=== PATIENT | female | born 1945 | race Caucasian/White ===

== ENCOUNTER 2024-09-26 08:14 | Outpatient (AMB) | payer MEDICARE, SELFPAY ==
--- NOTE | 2024-09-26 08:17 | A.OFFPC_ITS ---
Vital Signs 09/26/24 08:19 Height 5 ft 4 in Weight 193 lb 3.2 oz BMI 33.2 BP 142/74 H Blood Pressure Location Lt brachial Position Sitting Respiration 18 Pulse 78 Pulse Source Pulse Oximeter Temp 97.3 F Temp Source Temporal Artery Scan Pulse Oximetry (%) 98 Oxygen Delivery Method Room Air Intake Visit Reasons: establish care Intake Note: Patient is a new patient here to establish care. Transferring care from Dr. Gus Giles in [place], [place]. Medical records have not been requested and have not been received. Patient completed Medical Release of Information form today. Director Home Health Required: No Accompanied by: Self / Same As Patient Allergies naproxen [NAPROXEN] Allergy (Intermediate, Unverified 09/26/24 08:45) SWELLING, RASH, rash, swelling rosuvastatin [From CRESTOR] Allergy (Intermediate, Unverified 09/26/24 08:45) MUSCLE ACHE simvastatin [SIMVASTATIN] Allergy (Intermediate, Unverified 09/26/24 08:45) ITCHING, joint pain, cough Darvon Allergy (Unknown, Unverified 09/26/24 08:45) rash, swelling oxybutynin Allergy (Unknown, Verified 09/26/24 08:45) itching From DARVON Allergy (Intermediate, Uncoded 09/26/24 08:45) HIVES,SWELLING Medication List - Last Reconciled 09/26/24 by Carmina Sepulveda PA-C alprazolam mg PO [id number] 1.7 mg-400 mcg- 2.4 mcg (Neuriva Plus Brain Performance) caps PO dexlansoprazole (Dexilant) 60 mg PO DAILY sertraline 100 mg PO BID Tobacco use date assessed: 09/26/24 Fall risk assessment: No Falls in past year Last assessed Fall Risk: 09/26/24 Dental Screening Dental Screen Date: 09/26/24 Did you have a dental visit in the last 12 months?: Yes Did you have a dental problem in the last 6 months where you did not have access to dental care?: No Was dental information given to patient?: Patient has dentist HPI establish care HPI Details 79 year old female coming to the office for the first time. Prev being seen by [facility] in [facility]. The patient is a 79-year-old female presenting for medication management of anxiety and panic symptoms, evaluation of a persistent skin rash, and assessment of hypertension. She experiences recent escalation of anxiety due to stressful life events, with panic attacks in the previous month. Past medication issues include an adverse response to sertraline, related to increasing suicidal thoughts. Skin problems have been identified as a recurrent rash under the belly and near private areas, with temporary relief achieved using Lamisil, but concerns of yeast infection persist. She denies a history of diabetes, although diet control is noted with a previous top A1c of 6.0, and her hypertension history is reportedly high at clinic visits. Tobacco use history concluded more than 40 years ago, ceasing at age 32. [facility] Surgical History History of knee replacement H/O hand surgery Family History Father Prostate cancer Mother Breast cancer Brother FH: mental illness Social History Housing: House Housing Other:: Downstairs unit in son's home Alcohol intake: current Alcohol intake frequency: holidays/special occasions only Alcohol type: wine Patient Tobacco Use Status: Former Tobacco user Years Smoked: quit over 40 years e-Cigarette/Vaping Use: Never Used service: No Current occupational status: retired Cognitive needs: No Hearing needs: Yes (Hearing aids) Vision needs: Yes (Glasses) Female Reproductive History Menstrual control method: none Questionnaire PHQ-9 Over the last 2 weeks, how often have you been bothered by any of the following problems? 1. Little interest or pleasure in doing things: several days 2. Feeling down, depressed, or hopeless: more than half the days 3. Trouble falling or staying asleep, or sleeping too much: nearly every day 4. Feeling tired or having little energy: nearly every day 5. Poor appetite or overeating: several days 6. Feeling bad about yourself - or that you are a failure or have let yourself or your family down: nearly every day 7. Trouble concentrating on things, such as reading the newspaper or watching television: not at all 8. Moving or speaking so slowly that other people could have noticed. Or the opposite - being so fidgety or restless that you have been moving around a lot more than usual: several days 9. Thoughts that you would be better off or of hurting yourself in some way: not at all Total score: 14 Depression Screening Interpretation: Positive Depression Screening Follow-up: Existing condition, In treatment and Change in Medication Depression Screening Done: Yes 31183 - PHQ-9 Billing: Yes Source: Developed by Drs. Marc Dai, Felicita Ren, Andrew Braun and colleagues, with an educational yoli from [employer]. Thrive Questionnaire Date Thrive assessed: 09/26/24 I am a: Patient What is your living situation today?: I have a steady place to live Within the past 12 months, did the food you bought not last and you didn't have the money to get more?: Never true Within the past 12 months, did you worry whether your food would run out before you got money to buy more?: Never true Do you have trouble paying for medicines?: No Do you have trouble getting transportation to medical appointments?: No Do you have trouble paying your heating and electricity bill?: No Do you have trouble taking care of your child, family member or friend?: No Do you have trouble with day-to-day activities such as bathing, preparing meals, shopping, managing finances, etc.?: No Are you currently unemployed and looking for a job?: No Are you interested in more education?: No Please select the resources that you would like help with: None Currently or been in a relationship where the following occur: No concerns repo rted THRIVE Score: 0 AUDIT C Alcohol Use Questionnaire (AUDIT-C) 1. How often do you have a drink containing alcohol?: Monthly or less 2. How many drinks containing alcohol do you have on a typical day when you are drinking?: 1 or 2 3. How often do you have six or more drinks on one occasion?: Never Total Score: 1 FAUSTO-7 AMB Questionnaire FAUSTO-7 Date FAUTSO - 7 assessed: 09/26/24 Feeling nervous, anxious, or on edge: 3 = Nearly every day Not being able to stop or control worryin = Nearly every day Worrying too much about different things: 1 = Several days Trouble relaxin = Several days Being so restless that it is hard to sit still: 0 = Not at all Becoming easily annoyed or irritable: 1 = Several days Feeling afraid as if something awful might happen: 3 = Nearly every day Total FAUSTO-7 score (0-4 normal; 5-9 mild; 10-14 moderate; 15-21 severe): 12 Source: Developed by Drs. Marc Dai, Fleicita Ren, Andrew Braun and colleagues, with an educational yoli from [employer]. FAUSTO-7 Assessment Billing FAUSTO-7 Assessment Tool: FAUSTO-7 Assessment 10556 Review of Systems Const Denies body aches, Denies chills, Denies fever(s), Denies headache(s) and Denies poor appetite Eyes Reports no additional complaints ENT Denies dysphagia, Denies dizziness, Denies headache(s) and Denies odynophagia Card Denies chest pain, Denies syncope, Denies edema, Denies irregular heart rhythm, Denies lightheadedness and Denies dyspnea Resp Denies cough and Denies dyspnea GI Denies abdominal pain, Denies constipation, Denies dysphagia, Denies diarrhea, Denies nausea, Denies odynophagia and Denies vomiting Reports no additional complaints Musc Reports no additional complaints and Denies abnormal gait Skin/Breast Reports system reviewed and no additional complaints, except as documented Neuro Denies abnormal gait, Denies dizziness, Denies syncope and Denies headache(s) Psych Reports no additional complaints Physical exam (Primary Care) Vital Signs: Last Vital Signs Temp 97.3 F 09/26/24 08:19 Pulse 78 09/26/24 08:19 Resp 18 09/26/24 08:19 BP 142/74 H 09/26/24 08:19 Pulse Ox 98 09/26/24 08:19 Oxygen Delivery Method Room Air 09/26/24 08:19 BMI result Body Mass Index 33.2 Tobacco/Smoking Status: Tobacco use Status Tobacco use date assessed 09/26/24 09/26/24 08:29 Patient Tobacco Use Status Former Tobacco user 09/26/24 08:32 e-Cigarette/Vaping Use Never Used 09/26/24 08:32 PHQ-9: PHQ-9 Score PHQ-9: Total score 14 09/26/24 08:53 Depression Screening Interpretation: Positive Depression Screening Follow-up: Existing condition, In treatment and Change in Medication Thrive Assessment: Date of Thrive Assessment Date Thrive assessed 09/26/24 09/26/24 08:39 Currently or been in a relationship where the following occur: No concerns reported Const General: cooperative, healthy appearing, comfortable and no acute distress Orientation/consciousness: patient oriented x3 HENMT Head: Yes normocephalic Ears: hearing grossly normal bilaterally General nose exam: Normal external nose present Eyes General: appearance normal, both eyes and all related structures Conjunctivae: conjunctivae normal Neck Neck: Yes full ROM and Yes no lymphadenopathy Resp Effort & Inspection: normal respiratory effort Auscultation: clear to auscultation bilaterally, no crackles, no rales, no rhonchi and no wheezes Cardio Rate: regular rate Rhythm: regular rhythm Skin Other: Patchy, beefy, red rash under abdominal fold Neuro General: patient oriented x3 Gait exam (Neuro): Normal gait present Extrem General: Yes normal to inspection, Yes full ROM and No edema Psych Affect: normal affect Attitude: cooperative Insight: Good insight present (Psych) Judgement: Good judgement present (Psych) Coding Level of Care Code New Pt Level 4 (40675) Diagnoses Anxiety F41.9 Depression F32.A GERD (gastroesophageal reflux disease) K21.9 Hypercholesterolemia E78.00 Impaired glucose tolerance R73.02 Dry mouth R68.2 Atypical nevi D22.9 Elevated blood pressure reading without diagnosis of hypertension R03.0 Candidal dermatitis B37.2 Additional Codes FAUSTO-7 Assessment Billing - FAUSTO-7 Assessment Tool: FAUSTO-7 Assessment 32591 ([id number]) PHQ-9 - 44429 - PHQ-9 Billing: Yes ([id number]) Assessment & Plan Assessment & Plan (1) Anxiety: Code(s): F41.9 - Anxiety disorder, unspecified Category: Medical Plan: Sertraline decreased to 50 mg at patient request referral placed to counseling at this time. (2) Depression: Code(s): F32.A - Depression, unspecified Category: Medical Plan: Patient is currently on sertraline and is interested in decreasing her dose from 100 mg to 50 mg. Referral placed for counseling as well. (3) GERD (gastroesophageal reflux disease): Code(s): K21.9 - Gastro-esophageal reflux disease without esophagitis Category: Medical Plan: Avoid trigger foods such as citrus, tomato products, soda, caffeine, spicy foods and other foods that may be irritating to your stomach. Avoid laying flat 3-4 hours after eating and elevate the head of the bed 30 degrees to prevent acid from moving into the esophagus. Continue on dexlansoprazole (4) Hypercholesterolemia: Code(s): E78.00 - Pure hypercholesterolemia, unspecified Category: Medical Plan: Avoid foods that are high in cholesterol such as red meat, fried foods, eggs and baked goods. Triglyceride goal of less than 150 and LDL goal of less than 100. Not currently on medical management. Ordered for updated blood work (5) Impaired glucose tolerance: Comment: highest A1c 6.0% Code(s): R73.02 - Impaired glucose tolerance (oral) Category: Medical Plan: Decrease the amount of carbohydrates such as pasta, bread, rice, and potatoes and limit the amount of sweets. Although fruits are generally healthy they should be eaten in moderation as they are still high in sugar. Ordered for A1c and additional blood work. (6) Dry mouth: Code(s): R68.2 - Dry mouth, unspecified Category: Medical Plan: Patient complaining of chronic dry mouth in. Ordered for Sjogren labs for further evaluation and recommend using biotene as needed for symptom management. (7) Atypical nevi: Code(s): D22.9 - Melanocytic nevi, unspecified Category: Medical Plan: Referral placed to Dermatology for multiple atypical nevi (8) Elevated blood pressure reading without diagnosis of hypertension: Code(s): R03.0 - Elevated blood-pressure reading, without diagnosis of hypertension Category: Medical Plan: Mildly elevated today patient states she has under lot of stress today. Advised patient to take blood pressures at home 3-4 times per week keep a log and follow up at next visit for further evaluation. Avoid salt intake and encourage healthy diet and regular exercise. Consider medical management if remains elevated (9) Candidal dermatitis: Code(s): B37.2 - Candidiasis of skin and nail Category: Medical Plan: Patient has beefy red rash under the abdominal fold consistent with candidal infection. Plan to give clotrimazole cream and nystatin powder for treatment at this time. Advised to follow up if rash worsens or does not improve. Plan This note was constructed using voice recognition software. While every effort has been made to ensure accuracy and automatic pinsetter adjuster, still areas may have been included sometimes these areas may affect the content or meeting of the given symptoms. Total time spent caring for the patient today was 30 minutes. This includes time spent before the visit reviewing the chart, time spent during the visit, and time spent after the visit and documentation. Patient was informed and verbally consented to the use of an ambient scribe for clinic note documentation during this visit. Orders: Orders Lipid Panel Today E78.00 - Pure hypercholesterolemia, unspecified TSH reflex Free T4 Today Z00.00 - Encounter for general adult medical examination without abnormal findings Vitamin D 25-OH Total Today Z00.00 - Encounter for general adult medical examination without abnormal findings Sjogren's Antibodies Today R68.2 - Dry mouth, unspecified Hemoglobin A1c Today R73.02 - Impaired glucose tolerance (oral) Free T4 (Free Thyroxine) Today Z00.00 - Encounter for general adult medical examination without abnormal findings Complete Blood Count Auto Diff Today Z00.00 - Encounter for general adult medical examination without abnormal findings Comprehensive Met. Panel Today Z00.00 - Encounter for general adult medical examination without abnormal findings Vitamin B12 and Folate Today Z00.00 - Encounter for general adult medical examination without abnormal findings Referrals Counseling Referral F32.A - Depression, unspecified, F41.9 - Anxiety disorder, unspecified Dermatology Referral D22.9 - Melanocytic nevi, unspecified Medications: New alprazolam 0.5 mg PO .prn 20 tabs 0RF sertraline 50 mg PO DAILY 90 tabs 1RF clotrimazole 1% 1 appl topical BID 30 grams 0RF nystatin 1 appl topical DAILY 30 grams 0RF dexlansoprazole (Dexilant) 60 mg PO DAILY 90 caps 1RF
[2024-09-26 08:19] VITALS: BP 142/74; PULSE 78; RESP 18; TEMP 36.3; O2SAT 98; BMI 33.2
--- OUTSIDE RECORDS SUMMARY | 2024-09-26 08:33 | XMS_ITS | Encounter Summary ---
Author Organization [facility] Address [address] [place] [address] Care Team Providers Care Sales Representative Electric Service Name Role Phone Kevon Estrella MD Primary Care Provider Unavailable Pcp, No Primary Care Provider UnavailGus Malhotra MD Primary Care Provider [phone] Encounter Details Date Type Department Care Team (Late st Contact Info) Description 11/15/[address] [facility] [address] [facility] [address] [place] [address] Giovanna Olmstead, BUILDING RENTAL MANAGER [address] [place] [address] Social History Tobacco Use Types Packs/Day Years Used Date Smoking Tobacco: Former Cigarettes Smokeless Tobacco: Never Comments:quit 40+ years ago Alcohol Use Standard Drinks/Week Comments Not Currently 0 (1 standard drink = 0.6 oz pur e alcohol) less than monthly Sex and Gender Information Value Date Recorded Sex Assigned at Not on file Gender Identity Not on file Sexual Orientation Not on file COVID-19 Exposure Response Date Recorded In the last month, have you been in contact with someone who was confirmed or suspected to have Coronavirus / COVID-19? No / Unsure 11/11/2019 8:18 AM EDT documented as of this encounter Plan of Treatment Upcoming Encounters Date Type Department Care Team (Late st Contact Info) Description 10/11/2024 2:00 PM EDT Consult [facility] [address] [place] [phone] John Mccurdy MD [address] [facility] [address] [place] [address] documented as of this encounter Visit Diagnoses Not on filedocumented in this encounter Care Teams Sales Representative Electric Service Relationship Specialty Start Date End Date Kevon Estrella MD PCP - General Internal Medicine 11/28/18 02/06/23 Pcp, No PCP - General General Medicine 07/14/23 06/19/24 Gus Giles MD [address] [place] [address] PCP - General Family Medicine 06/20/24 documented as of this encounter
--- OUTSIDE RECORDS SUMMARY | 2024-09-26 08:33 | XMS_ITS | Encounter Summary ---
Author Organization [facility] Address [address] [place] [address] Care Team Providers Care Cadd Manager Name Role Phone Kevon Estrella MD Primary Care Provider Unavailable Pcp, No Primary Care Provider UnavailGus Malhotra MD Primary Care Provider [phone] Encounter Details Date Type Department Care Team (Late st Contact Info) Description 11/15/2019 Scanned Document [facility] [address] [place] [address] Monica Spencer MD [address] [place] [address] Social History Tobacco Use Types Packs/Day Years [...] Description 10/11/2024 2:00 PM EDT Consult [facility] [address] [facility] [place] [phone] John Mccurdy MD [address] [facility] [address] [place], [place] [id number] documented as of this encounter Procedures Procedure Name Priority Date/Time Associated Diagnosis Comments PATHOLOGY REPORT 11/15/2019 12:0 0 AM EDT documented in this encounter Results * (REPORT) PATHOLOGY REPORT (11/15/2019 12:00 AM EDT) Monica Spencer MD PATHOLOGY/CYTO LOGY ORDERABLES documented in this encounter Visit Diagnoses Not on filedocumented in this encounter Care Teams Cadd Manager Relationship Specialty Start Date End Date Kevon Estrella MD PCP - General Internal Medicine 11/28/18 02/06/23 Pcp, No PCP - General General Medicine 07/14/23 06/19/24 Gus Giles MD [address] [place] [address] PCP - General Family Medicine 06/20/24 documented as of this encounter
--- OUTSIDE RECORDS SUMMARY | 2024-09-26 08:33 | XMS_ITS | Clinical Summary ---
Author Organization [facility] Address [address] [place] [address] Care Team Providers Care Global Coordinator Name Role Phone Gus Giles MD Primary Care Provider [phone] Allergies Active Allergy Reactions Criticality Noted Date Comments Naproxen Rash Low 11/28/2018 Nsaids Rash Low 05/02/2019 Propoxyphene Swelling Medium 11/28/2018 Simvastatin Swelling Medium 11/28/2018 Medications Medication Sig Dispensed Refills Start Date End Date Status Cholecalciferol (Vitamin D) 50 MCG (1999) CAPSIndications:Keeley min D deficiency Take 1 capsule by mouth daily. 100 capsule 3 02/17/2023 Active ALPRAZolam (XANAX) 0.5 MG tabletIndications:Ge neralized anxiety disorder with panic attacks Take 1 tablet (0.5 mg total) by mouth daily as needed. 30 tablet 0 05/22/2024 Active Dexilant 60 MG capsuleIndications:G astroesophageal reflux disease without esophagitis Take 1 capsule (60 mg total) by mouth daily. 90 capsule 1 05/22/2024 Active Active Problems Problem Noted Date Diagnosed Date COVID-19 07/06/2023 Class 1 obesity 04/13/2023 04/13/2023 Vitamin D deficiency 02/17/2023 Asthma 07/01/2021 Prediabetes 09/22/2020 Perianal dermatitis 09/22/2020 Depression 03/12/2020 Moderate episode of recurrent major depressive d isorder 02/03/2020 Gastroesophageal reflux disease 02/03/2020 Generalized anxiety disorder with panic attacks 02/03/2020 Hx of colonic polyp 05/02/2019 Dysphagia 05/02/2019 Arthritis of right knee 12/13/2018 Immunizations Name Administration Dates Next Due Covid-19 (Moderna 12+) 100mcg/0.5mL dosage 09/24,08/27/2020 Covid-19 (Moderna 12+) Bivalent 50mcg/0.5mL 03/04 Covid-19 (Moderna Booster 18 +) 0.25mL dosage 05/18/2021 Influenza Quad (Afluria/Fluz one) 0.5mL >=6mon Vial (SD-IIV4) 04/09/2021 Influenza Quad (Fluad) 0.5 m L >65Yrs (AIIV4) 04/13/2023 Influenza Quad (High Dose Fl uzone) 0.7mL >65Yrs (HD-IIV4) 03/26/2022 Influenza Trivalent (Fluzone High Dose) 0.7 mL (65yrs &>) 03/22/2024 Pneumococcal Conjugate PCV13 01/09/2019 RSV preF (Abrysvo) Diluent R econstituted 0.5mL 60+Yrs 03/22/2024 Tdap 02/29/2024,02/06/2023,01/04/2018 Family History Medical History Relation Name Comments Cancer Brother liver Cancer Father prostate Breast cancer Mother Osteoporosis Sister 1 Cancer Sister 2 tongue Ovarian cancer Neg Hx Relation Name Status Comments Brother Alive Father Mother Sister 1 Alive Sister 2 Social History Tobacco Use Types Packs/Day Years Used Date Smoking Tobacco: Former Cigarettes 1 18 Q uit: 1975 Smokeless Tobacco: Never Tobacco Cessation:Counseling Given: Not Answered Alcohol Use Standard Drinks/Week Comments Yes 0 (1 standard drink = 0.6 oz pur e alcohol) rarely Sex and Gender Information Value Date Recorded Sex Assigned at Not on file Gender Identity Not on file Sexual Orientation Not on file Job Start Date Occupation Industry Not on file Not on file Not on file Last Filed Vital Signs Vital Sign Reading Time Taken Comments Blood Pressure 138/80 04/11/2024 2:40 PM EDT Pulse 102 04/11/2024 2:40 PM EDT Temperature 36.6 ??C (97.8 ??F) 04/11/2024 2:40 PM ED T Respiratory Rate 16 04/11/2024 2:40 PM EDT Oxygen Saturation 97% 04/11/2024 2:40 PM EDT Inhaled Oxygen Concentration - - Weight 88.2 kg (194 lb 6.4 oz) 04/11/2024 2:40 P M EDT Height 162.6 cm (5' 4 ) 04/11/2024 2:40 PM EDT Body Mass Index 33.37 04/11/2024 2:40 PM EDT Plan of Treatment Health Maintenance Due Date Last Done Comments Shingrix-Zoster Vaccine (1 of 2) 1996 Pneumococcal Vaccine (2 of 2 - PPSV23 or PCV20) 03/06/2019 01/09/2019 BMI Counseling 04/13/2024 04/13/2023, 03/04, 09/09/2020, Additional history exists Depression Screening 04/13/2024 04/13/2023, 03/30/2022, 09/09/2020, Additional history exists Fall Risk Assessment 04/13/2024 04/13/2023, 03/30/2022, 09/09/2020, Additional history exists Preventative Health Evaluation 04/13/2024 04/13/2023, 03/30/2022, 03/30/2022, Additional history exists Osteoporosis Screening (DEXA Scan) 08/07/2025 08/07/2023 Breast Cancer Screening (Mammogram) 02/07/2026 02/08/2024, 08/07/2023, 02/01/2022 DTap / Tdap / Td (5 - Td or Tdap) 02/28/2034 02/29/2024, 02/06/2023, 01/14/2018, Additional history exists Hepatitis C Screening Completed 03/30/2022 Influenza Vaccine Completed 03/22/2024, , 03/26/2022, Additional history exists RSV Adult > 60+ Yrs or Completed 03/22/2024 COVID-19 Vaccine Completed 04/25/2024, , 05/18/2021, Additional history exists Hepatitis B Vaccines Aged Out No long er eligible based on patient's age to complete this topic RSV Ped < 20 months Aged Out No longe r eligible based on patient's age to complete this topic Care Teams Global Coordinator Relationship Specialty Start Date End Date Gus Giles MD PCP - General Family Medicine 02/03/20
--- OUTSIDE RECORDS SUMMARY | 2024-09-26 08:33 | XMS_ITS | Encounter Summary ---
Author Organization [facility] Address [address] [place] [address] Care Team Providers Care Supervisor Hospitality House Name Role Phone Pcp, No Primary Care Provider Gus Garcia MD Primary Care Provider [phone] Encounter Details Date Type Department Care Team (Late st Contact Info) Description 02/16/2024 Telephone [facility] [address] [place] [address] Khurram Rodriguez Social History Tobacco Use Types Packs/Day Years [...] on file documented as of this encounter Miscellaneous Notes * Telephone Encounter - Khurram Rodriguez - 02/16/2024 7:00 PM EDT LVM colon recall DH OCS documented in this encounter Plan of Treatment Upcoming Encounters Date Type Department Care Team (Late st Contact Info) Description 10/11/2024 2:00 PM EDT Consult [facility] [address] [facility] [facility] [address] [place] [id number] John Mccurdy MD [address] [facility] [address] [place] [address] documented as of this encounter Visit Diagnoses Not on filedocumented in this encounter Care Teams Supervisor [facility]ality [facility] Relationship Specialty Start Date End Date Pcp, No PCP - General General Medicine 07/14/23 06/19/24 Gus Giles MD [address] [place] [address] PCP - General Family Medicine 06/20/24 documented as of this encounter
--- OUTSIDE RECORDS SUMMARY | 2024-09-26 08:33 | XMS_ITS | Continuity of Care Document ---
[facility] Address [address] [place] [address]- Care Team Providers Care Internal Medicine Physician Assistant Name Role Phone Chris MCCORMICK, Sheila Redd Primary Care Physici Encounter [facility] [id number] Date(s): 07/05/24 - 09/07/24 [facility] [address] [place] [address]- Attending Physician: Sheila Perez NP Encounter Type: Pre Office Visit Allergies, Adverse Reactions, Alerts Substance Criticality Severity Reaction Reaction Severity Status naproxen hives Active Zocor sore leg/ swelling A ctive Darvon rash, stop breathing Active Lactose diarrhea Active Immunizations Given and Recorded Vaccine Date Status Refusal Reason SARS-CoV-2(COVID-19)mRNA-LNP vac([id number]) 04/25/24 Recorded SARS-CoV-2(COVID-19)mRNA-LNP vac(ash026) 04/16/23 Recorded RSV vaccine, preF A-preF B, recombinant 03/22/24 R ecorded influenza virus vaccine, inactivated 03/22/24 Farhat rded influenza virus vaccine, inactivated 03/02/20 Farhat rded influenza virus vaccine, inactivated 04/02/19 Farhat rded influenza virus vaccine, inactivated 04/19/18 Farhat rded influenza virus vaccine, inactivated 03/17/16 Farhat rded influenza virus vaccine, inactivated 03/24/15 Farhat rded tetanus/diphtheria/pertussis, acel(Tdap) 02/29/24 Recorded tetanus/diphtheria/pertussis, acel(Tdap) 02/06/23 Given SARS-CoV-2 (COVID-19) mRNA-1273 vaccine 01/21/22 R ecorded SARS-CoV-2 (COVID-19) mRNA-1273 vaccine 09/24/20 R ecorded SARS-CoV-2 (COVID-19) mRNA-1273 vaccine 08/27/20 R ecorded pneumococcal 13-valent vaccine 03/24/15 Recorded Problem List Condition Confirmation Course Effective Dates Status Health St atus Informant Actinic keratosis Confirmed Active Cataracts, bilateral Confirmed Active Delayed gastric emptying Confirmed Active Delayed gastric emptying Confirmed Active Depression Confirmed Active Ganglion cyst Confirmed Active GERD (gastroesophageal reflux disease) Confirmed Active Chronic GERD Confirmed Active FAUSTO (generalized anxiety disorder) Confirmed Active Bleeding ulcer Confirmed Active Hyperlipidemia, unspecified Confirmed Active Lactose intolerance Confirmed Active Iron deficiency anemia Confirmed Active IBS (irritable bowel syndrome) Confirmed Active Obese class I Confirmed Active Prediabetes Confirmed Active Major depressive disorder, severe Confirmed Active Hepatic steatosis Confirmed Active Tubular adenoma of colon Confirmed Active Urge incontinence of urine Confirmed Active Social History Social History Type Response Smoking Status Former smoker, quit more than 30 days ago; Other: smoked 15 years, quit smoking at 32 years old; entered on: 07/05/24 Sex Sex Representation Female (finding) Patient Care team information Care Team Personnel Name: Chris MCCORMICK, Sheila Redd Position: [facility] PCO Associate Professional Member Role: PCP Address: [address] [place] [address] Telecom: Care Team Related Persons Name: ANNE MARIE CASTANO Name: NELSON MENON Insurance Providers Guarantor name: FIDENCIO CASTANO Health Plan Information #: 2 Payer: [employer] MED[employer] ADV HMO Member Number: [id number] Policy Number: NA Group Number: [id number] Health Plan Information #: 1 Payer: [facility] Member Number: [id number] Policy Number: NA Group Number: NA Health Plan Information #: 3 Payer: NA Member Number: NA Policy Number: NA Group Number: NA
--- OUTSIDE RECORDS SUMMARY | 2024-09-26 08:34 | XMS_ITS ---
Author Name [facility] Organization Unknown Results Test Name/Text Value Interpretation Date Range Source Hgb A1c MFr Bld HPLC 6.2% Above high normal [id number] 6 - 5.7 [facility] 25(OH)D3+25(OH)D2 SerPl IA-mCnc 34ng/mL Normal [id number] 30 - 100 [facility] VIT B12 SER MCNC 250pg/mL Normal [id number] 180 - 914 [facility] TSH SerPl DL<=0.005 mIU/L-aCnc 2.87uIU/mL Normal [id number] 0.45 - 5.33 [facility] CALCIUM SERPL MCNC 9.7mg/dL Normal [id number] 8.4 - 10 .2 [facility] ANION GAP SERPL SCNC 10mmol/L Normal [id number] 5 - 14 [facility] Glomerular filtration rate/1.73 sq M. predicted 51 Below low normal [id number] 60 - [facility] HCO3 SER SCNC 27mmol/L Normal [id number] 24 - 32 [facility] AST SERPL CCNC 16U/L Normal [id number] 5 - 40 [facility] BUN SERPL MCNC 12mg/dL Normal [id number] 7 - 17 [facility] CHLORIDE SERPL SCNC 104mmol/L Normal [id number] 98 - 10 7 [facility] ALBUMIN SERPL BCG MCNC 4.3g/dL Normal [id number] 3.5 - 5 [facility] ALP SERPL-CCNC 91U/L Normal [id number] 34 - 104 [facility] ALT SERPL CCNC 12U/L Normal [id number] 7 - 52 [facility] CREAT SERPL MCNC 1.1mg/dL Above high normal [id number] 0. 5 - 1 [facility] SODIUM SERPL SCNC 141mmol/L Normal [id number] 135 - 145 [facility] PROT SERPL MCNC 7.2g/dL Normal [id number] 6.4 - 8.5 C [facility] BILIRUB SERPL MCNC 0.4mg/dL Normal [id number] 0.3 - 1 [facility] GLUCOSE P FAST SERPL MCNC 149mg/dL Above high normal [id number] 70 - 99 [facility] POTASSIUM SERPL SCNC 4.5mmol/L Normal [id number] 3.5 - 5.1 [facility] LDLc SerPl Calc-mCnc 125mg/dL Normal [id number] 50 - 1 30 [facility] TRIGL SERPL-MCNC 107mg/dL Normal [id number] - 150 [facility] CHOLEST SERPL-MCNC 226mg/dL Above high normal [id number] 0 - 200 [facility] HDLC SERPL-MCNC 80mg/dL Normal [id number] 33 - 92 [facility] DIFFERENTIAL TYPE AUTOMATED Normal [id number] [facility] NO. BLD AUTO 269K/uL Normal [id number] 150 - 450 [facility] RBC NO. BLD AUTO 4.83M/uL Normal [id number] 4.2 - 5.4 [facility] LYMPHOCYTES NO. BLD AUTO 2K/uL Normal [id number] 1 - 3.2 [facility] EOSINOPHIL NO. BLD AUTO 0.3K/uL Normal [id number] 0 - 0.5 [facility] MCH RBC QN AUTO 25.8pg Normal [id number] 25 - 33 [facility] MCHC RBC AUTO MCNC 32.7g/dL Normal [id number] 32 - 36 [facility] MONOCYTES NFR BLD AUTO 6.8% Normal [id number] 2 - 12 [facility] LYMPHOCYTES NFR BLD AUTO 27% Normal [id number] 20 - 48 [facility] EOSINOPHIL NFR BLD AUTO 4% Normal [id number] 0 - 6 [facility] HGB BLD MCNC 12.4g/dL Below low normal [id number] 12.5 - 16 [facility] NEUTROPHILS NO. BLD AUTO 4.6K/uL Normal [id number] 1.8 - 7.8 [facility] WBC NO. BLD AUTO 7.5K/uL Normal [id number] 4 - 10.5 [facility] BASOPHILS NFR BLD AUTO 0.9% Normal [id number] 0 - 2 [facility] MONOCYTES NO. BLD AUTO 0.5K/uL Normal [id number] 0 - 0.8 [facility] MCV RBC AUTO 78.8fL Normal [id number] 78 - 100 [facility] NEUTROPHILS NFR BLD AUTO 61.3% Normal [id number] 44 - 74 [facility] BASOPHILS IN BLOOD BY AUTOMATED COUNT 0.1K/uL Normal [id number] 0 - 0.2 [facility] PMV BLD AUTO 9.3fL Normal [id number] 7.4 - 11.4 [facility] RDW RBC AUTO RTO 17.7% Above high normal [id number] 12 .1 - 16.2 [facility] HCT VFR BLD AUTO 38% Normal [id number] 37 - 47 [facility] History of Medication Use Medication Directions Dispensed Refills Start Date End Date Stat sulfamethoxazole-trim ethoprim (BACTRIM DS,SEPTRA DS) 800-160 MG per tablet Take 1 tablet by mouth 2 (two) times a day. 11/03/2021 active sertraline (ZOLOFT) 100 MG tablet Take 2 tablets (200 mg total) by mouth daily. 04/13/2023 active dexlansoprazole (DEXILANT) 60 MG capsule Take 60 mg by mouth nightly. Take night before surgery active Cholecalciferol (Vitamin D) 50 MCG (1999) CAPS Take 1 capsule by mouth daily. 02/17/2023 active ALPRAZolam (XANAX) 0.5 MG tablet TAKE 1 TABLET BY MOUTH EVERY DAY NEEDED 01/29/2024 active oxyCODONE HCl 5 MG Oral Tablet oxyCODONE HCl 5 MG Oral Tablet QTY: 12 tablet Days: 4 Refills: 0 Written: 05/03/24 Patient Instructions: take one tab po three times a day as needed 09/09/2023 completed Acetaminophen-Caffein e 500-65 MG Tab Take 1 tablet by mouth as needed. Do not take day of surgery. active proMETHAZINE-dextrome thorphan (proMETHAZINE-DM) 6.25-15 MG/5ML syrup Take 5 mL by mouth 4 times daily (every 6 hours) as needed for cough. 07/14/2023 active Problems Problem Status Onset Date Problem Type Date of Resolution Source Moderate episode of recurrent major depressive disorder active 2020-02-03 ProblemAct [facility] Encounter for screening for lipoid disorders active EncounterDiagnosisAct [facility] Localized, primary osteoarthritis of the hand (disorder) active 2022-05-11 ProblemAct [facility] Radial styloid tenosynovitis (disorder) active 2022-05-11 ProblemAct [facility] Perianal dermatitis active 2020-09-22 [facility] Panic disorder (episodic paroxysmal anxiety) active EncounterDiagnosisAct [facility] Moderate persistent asthma, uncomplicated active EncounterDiagnosisAct [facility] Vitamin D deficiency active 2023-02-17 Problem[facility] Depression active 2020-03-12 ProblemAct [facility] Class 1 obesity active 2023-04-[address] [facility] Prediabetes active 2020-09-22 ProblemAct [facility] Arthritis of right knee active 2018-12-13 ProblemAct [facility] Acquired trigger finger of right ring finger (disorder) active 2024-04-03 ProblemAct [facility] Cyst of bursa (disorder) active 2023-08-28 ProblemAct [facility] Localized, primary osteoarthritis of the hand (disorder) active 2023-02-27 ProblemAct [facility] Carpal tunnel syndrome of right wrist (disorder) active 2023-11-13 ProblemAct [facility] Gastroesophageal reflux disease active 2020-02-03 [facility] COVID-19 active 2023-07-06 ProblemAct [facility] Asthma active 2021-07-01 ProblemAct [facility] Dysphagia active 2019-05-02 ProblemAct [facility] Generalized anxiety disorder with panic attacks active 2020-02-03 ProblemAct [facility] Hx of colonic polyp active 2019-05-02 ProblemAct [facility] COVID-19 active EncounterDiagnosisAct [facility] Gastroesophageal reflux disease active 2019-05-02 ProblemAct [facility] Impingement syndrome of right shoulder region (disorder) active 2023-08-28 ProblemAct [facility] Acquired trigger finger of right index finger (disorder) active 2023-08-28 ProblemAct [facility] Immunizations Vaccine Date Source Lot Number Status Tdap 01/04/2018 [facility] completed Tdap 02/06/2023 [facility] [id number] completed Covid-19 (Moderna Booster 18+) 0.25mL dosage 05/18/2021 [facility] completed Influenza Quad (Afluria/Fluz one) 0.5mL >=6mon Vial (SD-IIV4) 04/09/2021 [facility] completed Covid-19 (Moderna 12+) 100mcg/0.5mL dosage 09/24/2020 [facility] completed Influenza Quad (Fluad) 0.5 mL >65Yrs (AIIV4) 04/13/2023 [facility] [id number] completed Covid-19 (Moderna 12+) Bivalent 50mcg/0.5mL 03/26/2022 [facility] [id number] completed Influenza Quad (High Dose Fl uzone) 0.7mL >65Yrs (HD-IIV4) 03/26/2022 [facility] [id number] completed Covid-19 (Moderna 12+) 100mcg/0.5mL dosage 08/27/2020 [facility] completed Encounters Encounter Type Encounter Reason Primary Diagnosis Location Date Ambulatory Carpal tunnel syndrome, right upper limb Carpal tunnel syndrome, right upper limb [facility] 05/29/2024 Ambulatory Carpal tunnel syndrome, right upper limb Carpal tunnel syndrome, right upper limb [facility] 05/08/2024 Ambulatory CREATE Carpal tunnel syndrome, right upper limb [facility] 05/03/2024 Ambulatory Carpal tunnel syndrome, right upper limb Carpal tunnel syndrome, right upper limb [facility] 05/03/2024 Ambulatory Trigger finger, right index finger Trigger finger, right index finger [facility] 04/03/2024 Ambulatory Major depressive disorder, recurrent, moderate Major depressive disorder, recurrent, moderate [facility] 03/26/2024 Ambulatory Encounter for screening for lipoid disorders Encounter for screening for lipoid disorders [facility] 03/26/2024 Ambulatory Trigger finger, right index finger Trigger finger, right index finger [facility] 11/15/2023 Ambulatory Trigger finger, right index finger Trigger finger, right index finger [facility] 10/11/2023 Ambulatory Trigger finger, right little finger Trigger finger, right little finger [facility] 09/21/2023 Ambulatory Trigger finger, right little finger Trigger finger, right little finger [facility] 09/14/2023 Ambulatory Trigger finger, right little finger Trigger finger, right little finger [facility] 09/08/2023 Ambulatory MODIFY [facility] 09/08/2023 Ambulatory Primary osteoarthritis, right hand Primary osteoarthritis, right hand [facility] 08/28/2023 Ambulatory COVID-19 COVID-19 [facility] 07/14/2023 Ambulatory Primary osteoarthritis, right hand Primary osteoarthritis, right hand [facility] 03/13/2023 Ambulatory Other synovitis and tenosynovitis, right hand Other synovitis and tenosynovitis, right hand [facility] 02/27/2023 Ambulatory Vitamin D defici ency, unspecified [facility] 01/25/2023 Ambulatory Unil primary osteoarth of first carpometacarp joint, r hand [facility] 07/13/2022 Ambulatory Unil primary osteoarth of first carpometacarp joint, r hand [facility] 07/08/2022 Ambulatory [facility] Ambulatory Pain in thoracic spine [place] [email or web address] [facility] 11/03/2021 Care Team Organization Name Specialty Phone Email Start Date End Da te [facility] Gus Giles Primary Care 06/20/2024 [facility], [facility] 04/23/2024 [facility] 08/30/2023 [facility] 07/14/2023 07/14/2023 [facility] 07/14/2023 09/18/2024 [facility] 01/27/2023 [facility] Gus Tisha Primary Care 01/0101/25/2023 [facility] Marcos Latif Primary Care 05/11/2022 08/27/2024 [facility] LARISSA ESTRELLA Primary Care 11/03/2021 11/03/2021 [facility] Betito Estrella Primary Care 11/03/2021 09/18/2024
--- OUTSIDE RECORDS SUMMARY | 2024-09-26 08:34 | XMS_ITS | Clinical Summary ---
Author Organization [facility] ity Address [address] [place] [address] Care Team Providers Care Corrections Specialist Name Role Phone Gus Giles MD Primary Care Provider [phone] Allergies Active Allergy Reactions Criticality Noted Date Comments Naproxen Rash Low 11/28/2018 Nsaids (Non-Steroidal Anti-I nflammatory Drug) Rash Low 05/02/2019 Propoxyphene Swelling Medium 11/28/2018 Simvastatin Swelling Medium 11/28/2018 Medications ALPRAZolam (XANAX) 0.5 mg tablet TAKE 1 TABLET BY MOUTH EVERY DAY NEEDED 04/23/2022 Active dexlansoprazole (Dexilant) [address] capsule Take 1 capsule (60 mg total) by mouth daily. 06/20/2022 Active sertraline (ZOLOFT) 100 mg tablet TAKE 2 TABLETS BY MOUTH EVERY DAY 04/19/2022 Active Active Problems Problem Noted Date Diagnosed Date Asthma 07/01/2021 Prediabetes 09/22/2020 Perianal dermatitis 09/22/2020 Depression 03/12/2020 Episode of recurrent major depressive disorder 0 02/03/2020 Gastroesophageal reflux disease 02/03/2020 Generalized anxiety disorder with panic attacks 02/03/2020 Dysphagia 05/02/2019 Arthritis of right knee 12/13/2018 Immunizations Name Administration Dates Next Due Influenza Quadravalent, 0.5m l (Fluzone High-dose) 65yo and older 03/26/2022 Influenza Quadrivalent, with preservative (Fluzone; Afluria) 6mo and older 04/09/2021 Moderna (age 6mo & older) Bi valent, COVID-19, 0.5 mL or 0.25 mL dosage 03/26/2022 Moderna SARS-CoV-2 COVID-19, mRNA, LNP-S, preservative free 05/18/2021,09/24/2020,08/27/2020 Surgical History Surgery Date Site/Laterality Comments BREAST BIOPSY Left benign ESOPHAGEAL DILATION EYE SURGERY TOTAL KNEE ARTHROPLASTY Bilateral OTHER SURGICAL HISTORY vagotomy TOTAL KNEE ARTHROPLASTY PROCEDURE:REPLACEMENT TOTAL KNEE BILATERAL OTHER SURGICAL HISTORY PROCEDURE:VAGOTOMY EYE SURGERY PROCEDURE:EYE SURGERY BREAST BIOPSY Left PROCEDURE:BREAST BIOPSY;COMMENT:Benign ESOPHAGEAL DILATION PROCEDURE:ESOPHAGEAL DILATION Medical History Medical History Date Comments Concussion Depression Dysphagia GERD (gastroesophageal reflux disease) Panic attacks Depression DX:Depression GERD (gastroesophageal reflux disease) DX:GERD (gastroesophageal reflux disease) Anxiety DX:Anxiety Concussion DX:Concussion Dysphagia DX:Dysphagia Family History Medical History Relation Name Comments Cancer Brother 1 liver Cancer Brother 2 liver Cancer Father prostate Breast cancer Mother Cancer Sister 1 tongue Osteoporosis Sister 2 Cancer Sister 3 tongue Ovarian cancer Neg Hx Relation Name Status Comments Brother 1 Brother 2 Alive Father Mother Sister 1 Sister 2 Alive Sister 3 Social History Tobacco Use Types Packs/Day Years Used Date Smoking Tobacco: Former Cigarettes 1 18 0 07/03/1957 - 07/03/1975 Smokeless Tobacco: Never Tobacco Cessation:Counseling Given: Not Answered Alcohol Use Standard Drinks/Week Comments Yes 0 (1 standard drink = 0.6 oz pur e alcohol) rarely Comments Unknown Sex and Gender Information Value Date Recorded Sex Assigned at Not on file Legal Sex Female 11:50 PM EST Gender Identity Not on file Sexual Orientation Not on file Obstetrics History Last Filed Vital Signs Vital Sign Reading [...] Health Maintenance Due Date Last Done Comments Zoster Vaccines (1 of 2) 1996 Pneumococcal Vaccine: 50+ Years (2 of 2 - PPSV23) 03/06/2019 01/09/2019 Social Influencers of Health Screening 06/10/2022 Depression Screening 03/30/2023 03/30/2022 Falls Risk Assessment 03/30/2023 03/30/2022 COVID-19 Vaccine ( season) 2024 03/26/2022, 05/18/2021, 09/24/2020, Additional history exists Breast Cancer Screening 02/07/2026 02/08/20, 08/07/2023, 02/01/2022 Cholesterol Screening (Lipid Panel) 03/26/2029 03/26/2024, 03/26/2024, 01/25/2023, Additional history exists Osteoporosis Screening (Bone Density Screening) 08/07/2033 08/07/2023 DTaP,Tdap,and Td Vaccines (4 - Td or Tdap) 02/28/2034 02/29/2024, 02/06/2023, 01/04/2018 Hepatitis C Screening Completed 03/30/2022 Influenza Vaccine Completed 03/22/2024, , 03/26/2022, Additional history exists RSV Immunization Patients 60+ Years Old Completed 03/22/2024 HIB Vaccines Aged Out No longer eligi ble based on patient's age to complete this topic HPV Vaccines Aged Out No longer eligi ble based on patient's age to complete this topic Hepatitis A Vaccines Aged Out No long er eligible based on patient's age to complete this topic Hepatitis B Vaccines Aged Out No long er eligible based on patient's age to complete this topic IPV Vaccines Aged Out No longer eligi ble based on patient's age to complete this topic MMR Vaccines Aged Out No longer eligi ble based on patient's age to complete this topic Meningococcal ACWY Vaccine Aged Out N o longer eligible based on patient's age to complete this topic Meningococcal B Vacine Aged Out No lo nger eligible based on patient's age to complete this topic RSV Immunization Patients Under 20 months Aged Out No longer eligible based on patient's age to complete this topic Varicella Vaccines Aged Out No longer eligible based on patient's age to complete this topic Procedures Procedure Name Priority Date/Time Associated Diagnosis Comments MAMMOGRAM DIAGNOSTIC RIGHT DIGITAL WITH CAD Routine 02/08/2024 10:11 AM EDT Other specified disorders of breast Mammographic microcalcification found on diagnostic imaging of breast BONE DENSITY STUDY Routine 08/07/2023 10 :16 AM EST Encounter for screening for osteoporosis Asymptomatic menopausal state HM HEPATITIS C SCREENING Routine 03/30/2022 HM DEPRESSION SCREENING Routine 03/30/2022 HM FALLS RISK ASSESSMENT Routine 03/30/2022 LIPID PANEL Routine 03/30/2022 from Last 3 Months or Most Recently Relevant to Health Maintenance Results * MAMMOGRAM DIAGNOSTIC RIGHT DIGITAL WITH CAD (02/08/2024 10:11 AM EDT) Anatomical Region Laterality Modality Mammography 08/07/2023 12:1 9 PM EST Narrative 02/08/2024 10:37 AM EDT This is a summary report. The complete report is available in the patient's medical record. If you cannot access the medical record, please contact the sending organization for a detailed fax or copy. EXAM PERFORMED: ??MAMMOGRAM DIAGNOSTIC RIGHT DIGITAL WITH CAD EXAM HISTORY: Follow-up right breast calcifications and asymmetries. COMPARISON: 2023, 2021 TECHNIQUE: Bilateral full field digital mammography with synthesized (2D) the and Tomosynthesis (3-D) was performed using standard CC and MLO projections. Mammogram was interpreted in correlation with CAD and Tomosynthesis. BREAST DENSITY: There are scattered fibroglandular densities (approximately 25- 50% glandular, B). FINDINGS: Right breast middle/posterior depth just lateral to nipple line dystrophic 0.8 cm group of calcifications is stable from 2021. Right breast anterior/middle depth upper outer quadrant focal asymmetries are stable from 2021. Additional scattered benign-appearing and vascular calcifications are typically benign. Otherwise, no additional suspicious masses, grouped microcalcifications, or architectural distortion are identified. Typically benign asymmetries. No axillary lymphadenopathy. IMPRESSION: 1. No mammographic evidence of malignancy. 2. Scattered fibroglandular densities. Mammography BI-RADS Category 2: Benign 3342F RECOMMENDATION: Continue routine mammography screening in one year. Findings and recommendations reported to the patient at the time of examination. Report reviewed and signed by : Dr. Duglas Augustin MD on 02/08/2024 10:37 AM. Workstation Name - [id number] Procedure Note Duglas Augustin MD - 04/16/2024 This is a summary report. The complete report is available in thepatient's medical record. If you cannot access the medical record, pleasecontact the sending organization for a detailed fax or copy. EXAM PERFORMED: MAMMOGRAM DIAGNOSTIC RIGHT DIGITAL WITH CAD EXAM HISTORY: Follow-up right breast calcifications and asymmetries. COMPARISON: 2023, 2021 TECHNIQUE: Bilateral full field digital mammography with synthesized (2D)the and Tomosynthesis (3-D) was performed using standard CC and MLOprojections. Mammogram was interpreted in correlation with CAD andTomosynthesis. BREAST DENSITY: There are scattered fibroglandular densities(approximately 25- 50% glandular, B). FINDINGS: Right breast middle/posterior depth just lateral to nipple line dystrophic0.8 cm group of calcifications is stable from 2021. Right breast anterior/middle depth upper outer quadrant focal asymmetriesare stable from 2021. Additional scattered benign-appearing and vascular calcifications aretypically benign. Otherwise, no additional suspicious masses, grouped microcalcifications,or architectural distortion are identified. Typically benign asymmetries.No axillary lymphadenopathy. IMPRESSION: 1. No mammographic evidence of malignancy. 2. Scattered fibroglandular densities. Mammography BI-RADS Category 2: Benign 3342F RECOMMENDATION: Continue routine mammography screening in one year. Findings and recommendations reported to the patient at the time ofexamination. Report reviewed and signed by : Dr. Duglas Augustin MD on 02/08/2024 10:37AM. Workstation Name - [id number] us Gus Giles MD IMG BI PROCEDURES Final Resul t * BONE DENSITY STUDY (08/07/2023 10:16 AM EST) Anatomical Region Laterality Modality Bone Densitometr y 04/13/2023 9:51 AM EDT Narrative 08/07/2023 11:04 AM EST Bone density study Indication and risk factors: Postmenopausal female. ??Screening for osteoporosis. ??No priors. Study acquired on a [place] densitometer. Imaging of the lumbar spine and hip was completed. FINDINGS: LUMBAR SPINE Averaged L1 through L4: Bone density: 1.16 g/cm2 Z score: 1.1 T score: -0.2 LEFT HIP Left femoral neck: Bone density: 0.76 g/cm2 Z score: -0.3 T score: -2.0 CONCLUSION: 1. ??Lumbar spine: ??Normal bone density. 2. ??Left hip: ??Osteopenia. FRAX: 10 year probability of fracture based on femoral neck BMD, when considering patient's personal risk factors: Major osteoporotic fracture: 14% Hip fracture: 4% SESSION: Not applicable World Health Organization Definitions of Osteoporosis: T score at or below -1.0: Normal BMD T score between -1.0 and -2.5: Osteopenia T score at or below -2.5: Osteoporosis DEXA guidelines: Diagnosis : Treatment : Follow-up DEXA Normal BMD : Prevention : 2-3 years Osteopenia : Prevention/therapy :1-2 years Osteoporosis : Therapy : Yearly Report reviewed and signed by : Dr. Yumiko Díaz on 08/07/2023 11:04 AM. Workstation Name - LOUIE- Procedure Note Yumiko Díaz MD - 02/19/2024 Bone density study Indication and risk factors: Postmenopausal female. Screening forosteoporosis. No priors. Study acquired on a [place] densitometer. Imaging of thelumbar spine and hip was completed. FINDINGS: LUMBAR SPINE Averaged L1 through L4: Bone density: 1.16 g/cm2 Z score: 1.1 T score: -0.2 LEFT HIP Left femoral neck: Bone density: 0.76 g/cm2 Z score: -0.3 T score: -2.0 CONCLUSION: 1. Lumbar spine: Normal bone density. 2. Left hip: Osteopenia. FRAX: 10 year probability of fracture based on femoral neck BMD, whenconsidering patient's personal risk factors: Major osteoporotic fracture: 14% Hip fracture: 4% SESSION: Not applicable World Health Organization Definitions of Osteoporosis: T score at or below -1.0: Normal BMD T score between -1.0 and -2.5: Osteopenia T score at or below -2.5: Osteoporosis DEXA guidelines: Diagnosis : Treatment : Follow-up DEXA Normal BMD : Prevention : 2-3 years Osteopenia : Prevention/therapy :1-2 years Osteoporosis : Therapy : Yearly Report reviewed and signed by : Dr. Yumiko Díaz on 08/07/2023 11:04 AM.Workstation Name - LOUIE- Result [facility] Gus Giles MD IMG DXA PROCEDURES Final Resu lt * Falls Risk Assessment (03/30/2022) [facility] Falls Risk Assessment abstracted Result [facility] Historical Provider HEALTH MAINTENANCE Final Result * Depression Screening (03/30/2022) [facility] Depression Screening abstracted Result [facility] Provider HEALTH MAINTENANCE Final Result * Hepatitis C Screening (03/30/2022) [facility] Hepatitis C Screening abstracted Result [facility] Provider HEALTH MAINTENANCE Final Result * (ABNORMAL) Lipid panel (03/30/2022) [facility] Triglycerides 101 <=150 mg/dL Cholesterol 211(A) 0 - 200 mg/dL HDL 67 33 - 92 mg/dL LDL Cholesterol 124 50 - 130 mg/dL Blood Venous blood specimen / Unknown Result [facility] Provider LAB BLOOD ORDERABLES Tamia l Result from Last 3 Months or Most Recently Relevant to Health Maintenance Care Teams Corrections Specialist Relationship Specialty Start Date End Date Gus Giles MD [address] [address] PCP - General 02/03/20
--- OUTSIDE RECORDS SUMMARY | 2024-09-26 08:34 | XMS_ITS | Encounter Summary ---
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 04/14/24 Pre-Op Dx PRE-OP DIAGNOSIS: Carpal tunnel syndrome, right: Trigger finger Proposed Proc. PROPOSED PROCEDURE: Right endoscopic carpal tunnel release, right middle and ring trigger release PROCEDURE DATE: 05/17/2024 Surg/Endo SURGEON/ENDOSCOPIST: Dr. Latif Rodríguez [facility]: [facility] SURGEON/ENDOSCOPIST Anesthetic Preference: MAC Here for [...] 0 ? Cholecalciferol (Vitamin D) 50 MCG (2000 UT) CAPS Take 1 capsule by mouth [...] Encounter Procedures ? ECG 12 lead Gus Gilse MD [facility], [address] [place] [id number] documented in this encounter Plan of Treatment Not on file documented as of this encounter Visit Diagnoses Not on filedocumented in this encounter Care Teams Chairman Relationship Specialty Start Date End Date Gus Giles MD [address] [phone] PCP - General 02/03/20 documented as of this encounter
--- OUTSIDE RECORDS SUMMARY | 2024-09-26 08:34 | XMS_ITS | Clinical Summary ---
Author Organization [facility] Address [address] [place] [address] Care Team Providers Care Sink Maker Name Role Phone Gus Giles MD Primary Care Provider [phone] Allergies Active Allergy Reactions Criticality Noted Date Comments Naproxen Rash/Dermatitis Low 11/28/2018 Propoxyphene Swelling Medium 11/28/2018 Nsaids Rash/Dermatitis Low 05/02/2019 Simvastatin Swelling Medium 11/28/2018 Medications Medication Sig Dispensed Refills Start Date End Date Status ALPRAZolam (XANAX) 0.5 MG tablet Take 0.5 mg by mouth daily as needed for anxiety. Take day of surgery if needed Active ammonium lactate (LAC-HYDRIN) 12 % lotion Apply topically 2 (two) times a day as needed for dry skin. Do not apply day of surgery Active dexlansoprazole (DEXILANT) 60 MG capsule Take 60 mg by mouth nightly. Take night before surgery Active sertraline (ZOLOFT) 100 MG tablet Take 100 mg by mouth nightly. Take night before surgery Active Acetaminophen-Caffei ne 500-65 MG Tab Take 1 tablet by mouth as needed. Do not take day of surgery. Active HYDROmorphone (DILAUDID) 2 MG tabletIndications:Ar thritis of right knee Take 1-2 tablets (2-4 mg total) by mouth every 4 (four) hours as needed for moderate pain or severe pain. Max Daily Amount: 24 mg 60 tablet 12/14/2018 Active Cholecalciferol (VITAMIN D3) 25 MCG (1000 UT) Cap Take by mouth. Active CINNAMON PO Take by mouth. Active ghqzsn-nmzcnqbft-utz nesium sulfates (Suprep Bowel Prep Kit) 17.5-3.13-1.6 GM/177ML Solution solutionIndications: Hx of colonic polyp,Dysphagia, unspecified type,Gastroesophagea l reflux disease, esophagitis presence not specified Take two 177 mL bottles as directed 2 Bottle 11/04/2019 Active sulfamethoxazole-tri methoprim (BACTRIM DS,SEPTRA DS) 800-160 MG per tabletIndications:Ac asael right-sided thoracic back pain Take 1 tablet by mouth 2 (two) times a day. 20 tablet 11/03/2021 Active proMETHAZINE-dextrom ethorphan (proMETHAZINE-DM) 6.25-15 MG/5ML syrupIndications:COV ID-19 Take 5 mL by mouth 4 times daily (every 6 hours) as needed for cough. 120 mL 07/14/2023 Active Active Problems Problem Noted Date Diagnosed Date Hx of colonic polyp 05/02/2019 Dysphagia 05/02/2019 Gastroesophageal reflux disease 05/02/2019 Arthritis of right knee 12/13/2018 Family History Medical History Relation Name Comments Liver cancer Brother 1 Deep vein thrombosis Brother 2 Other Brother 2 Pulmonary embolism Brother 2 Transient ischemic attack Brother 2 Cirrhosis Father Prostate cancer Father Breast cancer Mother Stomach cancer Paternal Aunt Cancer Sister 1 Mouth Atrial fibrillation Sister 2 Relation Name Status Comments Brother 1 Brother 2 Alive Father Mother Paternal Aunt Sister 1 Sister 2 Alive Social History Tobacco Use Types Packs/Day Years Used Date Smoking Tobacco: Former Cigarettes Smokeless Tobacco: Never Comments:quit 40+ years ago Alcohol Use Standard Drinks/Week Comments Not Currently 0 (1 standard drink = 0.6 oz pur e alcohol) less than monthly Sex and Gender Information Value Date Recorded Sex Assigned at Not on file Gender Identity Not on file Sexual Orientation Not on file Last Filed Vital Signs Vital Sign Reading Time Taken Comments Blood Pressure 149/90 07/14/2023 5:33 PM EST Pulse 91 07/14/2023 5:33 PM EST Temperature 36.4 ??C (97.5 ??F) 07/14/2023 5:33 PM ES T Respiratory Rate 18 12/14/2018 1:24 PM EDT Oxygen Saturation 95% 07/14/2023 5:33 PM EST Inhaled Oxygen Concentration - - Weight 81.6 kg (180 lb) 07/14/2023 5:33 PM EST Height 165.1 cm (5' 5 ) 07/14/2023 5:33 PM EST Body Mass Index 29.95 07/14/2023 5:33 PM EST Plan of Treatment Upcoming Encounters Date Type Department Care Team (Late st Contact Info) Description 10/11/2024 2:00 PM EDT Consult [facility] [address] [facility] [address] [place] [address] Jonh Mccurdy MD [address] [place] [address] [phone] Health Maintenance Due Date Last Done Comments Hepatitis C Virus Screening 1945 DTaP/Tdap/Td Vaccines (1 - Tdap) 1965 Pneumococcal Vaccines 50+ (1 of 1 - PCV) 1996 Zoster (Shingles) Vaccine (1 of 2) 1996 DXA Bone Density (Females,Ages 65 and older) 2011 RSV Vaccine 60 years and older and Patients (1 - 1-dose 75+ series) 2021 Influenza Vaccine 02/01/2024 04/13/2023, , 04/09/2021, Additional history exists COVID-19 Vaccine ( season) 2024 03/26/2022, 05/18/2021, 09/24/2020, Additional history exists Hemoglobin A1C Discontinued 01/25/2023, 08/2022, 03/30/2022, Additional history exists Hepatitis B Vaccines Aged Out No long er eligible based on patient's age to complete this topic Medical Devices Implanted Type [facility] Ward Clerk Device Identifier Shelf Expiration Date Model / Serial / Lot [id number] Cement Bone [employer] R 40gm Grn - [id number] Implanted:Qty: 2 on 12/13/2018 by Deandre Arndt MD at [facility] Cement Right: Knee [employer] 11/30/2021 [id number] / / [id number] Restrictor Bncmnt 25mm Perez 16-21mm Hip Femoral Plug Sterl - [id number] Implanted:Qty: 1 on 12/13/2018 by Deandre Arndt MD at [facility] Joint Prosthesis Right: Knee [employer] - D 08/21/2028 [id number] / / [id number] Component Patellar Std 9mm 35mm Nxgn Uhmwpe Knee Sterl Blue - [id number] Implanted:Qty: 1 on 12/13/2018 by Deandre Arndt MD at [facility] Joint Prosthesis Right: Knee [employer] [id number] 08/02/2026 [id number] / / [id number] Component Femoral 6 Std Knee Right Crcte Rtn Cmnt Persona - [id number] Implanted:Qty: 1 on 12/13/2018 by Deandre Arndt MD at [facility] Joint Prosthesis Right: Knee [employer] [id number] 05/02/2028 [id number] / / [id number] Insert Articular 3-11 E-F 10mm Knee Right Crcte Rtn Polyethe - [id number] Implanted:Qty: 1 on 12/13/2018 by Deandre Arndt MD at [facility] Joint Prosthesis Right: Knee [employer] [id number] 08/30/2024 [id number] / / [id number] Baseplate Tibial Persona Ntr Tibia 5d E Knee Right Stem - [id number] Implanted:Qty: 1 on 12/13/2018 by Deandre Arndt MD at [facility] Joint Prosthesis Right: Knee [employer] [id number] 08/30/2028 [id number] / / [id number] Advance Directives * Full Code (Latest Code Status on File) Date Activated Date Inactivated Comments 12/13/2018 11:58 AM * Full Code Date Activated Date Inactivated Comments 12/13/2018 6:45 AM 12/13/2018 11:58 AM Care Teams Sink Maker Relationship Specialty Start Date End Date Gus Giles MD [address] [place] [address] PCP - General Family Medicine 06/20/24
--- OUTSIDE RECORDS SUMMARY | 2024-09-26 08:34 | XMS_ITS | Encounter Summary ---
Author Organization [facility] Address [address] [place] [address] Care Team Providers Care Technical Support Professional Name Role Phone Genie Aguilar MD Primary Care Provider Unavailabl e Reason for Visit * Reason Comments E-prescribe Rx Request Encounter Details Date Type Department Care Team Description 09/11/2020 Refill Dermatology - [address] [phone] Nichol Hanks PA-C E-prescribe Rx Request Social History Tobacco Use Types Packs/Day Years Used Date Smoking Tobacco: Never Assessed Sex Assigned at Date Recorded Not on file documented as of this encounter Miscellaneous Notes * Telephone Encounter - Eneida Sutherland M.A. - 09/14/2020 10:20 AM EDT Message left for patient to return my call. * Telephone Encounter - Nichol Hanks - 09/14/2020 7:59 AM EDT Declined refill of desonide ointment 0.05%. What is she using this for? * Telephone Encounter - Eneida Sutherland M.A. - 09/11/2020 1:08 PM EST VIN: 02/07/20 F/U: no f.u apt documented in this encounter Plan of Treatment Not on file documented as of this encounter Visit Diagnoses Not on filedocumented in this encounter Care Teams Technical Support Professional Relationship Specialty Start Date End Date Genie Aguilar MD PCP - General 07/03/10 documented as of this encounter
--- OUTSIDE RECORDS SUMMARY | 2024-09-26 08:34 | XMS_ITS | Continuity of Care Document ---
Author Organization [facility] Address [address] [place] [phone]- Care Team Providers Care Metal Window Screen Assembler Name Role Phone Chris MCCORMICK, Sheila Redd Primary Care Physici [id number] Date(s): 08/08/24 - 09/07/24 [facility] [address] [address]- Attending Physician: Yamilet Choi Admitting Physician: Yamilet Choi Referring Physician: Yamilet Choi Encounter Type: Triage Allergies, Adverse Reactions, Alerts Substance Criticality Severity Reaction Reaction Severity Status naproxen hives Active Lactose diarrhea Active Darvon rash, stop breathing Active Zocor sore leg/ swelling A ctive Immunizations Given and Recorded Vaccine Date Status Refusal Reason SARS-CoV-2(COVID-19)mRNA-LNP vac([id number]) 04/25/24 Recorded SARS-CoV-2(COVID-19)mRNA-LNP vac([id number]) 04/16/23 Recorded RSV vaccine, preF A-preF B, [...] Care Team Personnel Name: Chris MCCORMICK, Sheila eRdd Position: S PCO Associate Professional Member Role: PCP Address: [address] [place] [address] [facility] [place] [address]- Telecom: Care Team Related Persons Name: ANNE MARIE CASTANO Name: NELSON MENON Insurance Providers Guarantor name: FIDENCIO CASTANO Health Plan Information #: 1 Payer: NA Member Number: NA Policy Number: NA Group Number: NA
--- OUTSIDE RECORDS SUMMARY | 2024-09-26 08:34 | XMS_ITS | Encounter Summary ---
Author Organization [facility] Address [address] [place] [address] Care Team Providers Care Medical Administrative Assistant Name Role Phone Genie Aguilar MD Primary Care Provider Unavailabl e Encounter Details Date Type Department Care Team Description 02/12/2020 Release of Information Medical Records [address] [place] [id number] Abstract, Provider Social History Tobacco Use Types Packs/Day Years Used Date Smoking Tobacco: Never Assessed Sex Assigned at Date Recorded Not on file documented as of this encounter Plan of Treatment Not on file documented as of this encounter Visit Diagnoses Not on filedocumented in this encounter Care Teams Medical Administrative Assistant Relationship Specialty Start Date End Date Genie Aguilar MD PCP - General 07/03/10 documented as of this encounter
== END 2024-09-26 09:13 | disposition home or self-care (01) ==
DX: F41.9 Anxiety disorder, unspecified (principal); F32.A Depression, unspecified; K21.9 Gastro-esophageal reflux disease without esophagitis; E78.00 Pure hypercholesterolemia, unspecified; R73.02 Impaired glucose tolerance (oral); R68.2 Dry mouth, unspecified; D22.9 Melanocytic nevi, unspecified; R03.0 Elevated blood-pressure reading, without diagnosis of hypertension; B37.2 Candidiasis of skin and nail

== ENCOUNTER → 2024-09-26 08:14 | Outpatient (BNVA) | payer MEDICARE, SELFPAY | DX: I10 Essential (primary) hypertension (principal); R21 Rash and other nonspecific skin eruption; F41.9 Anxiety disorder, unspecified; F32.A Depression, unspecified; K21.9 Gastro-esophageal reflux disease without esophagitis; E78.00 Pure hypercholesterolemia, unspecified; R73.02 Impaired glucose tolerance (oral); R68.2 Dry mouth, unspecified; D22.9 Melanocytic nevi, unspecified; R03.0 Elevated blood-pressure reading, without diagnosis of hypertension; B37.2 Candidiasis of skin and nail | CPT/HCPCS: 96127; 99202 ==

== ENCOUNTER 2024-10-01 10:05 | Outpatient (REF) | payer MEDICARE, SELFPAY ==
[2024-10-01 10:24] LABS: MANUAL DIFF FLAG NO
[2024-10-01 11:17] LABS: Basophils Absolute Auto 0.1 X10*3/uL (0.0-0.2); Eosinophils Absolute Auto 0.2 X10*3/uL (0.0-0.4); Eosinophils Percent Auto 2.8 % (0-4); Hematocrit 39.6 % (37.0-47.0); Hemoglobin 12.5 g/dl (12.0-16.0); Imm Gran Abs Auto 0.02 X10*3/uL (0.00-0.03); Imm Gran Pct Auto 0.3 % (0.0-0.4); Lymphocytes Absolute Auto 2.4 X10*3/uL (1.2-4.9); Lymphocytes Percent Auto 34.6 % (20-40); Mean Corpuscular HGB Conc 31.6 g/dl (31.0-35.0); Mean Corpuscular Hemoglobin 24.6 pg (27.0-33.0); Mean Corpuscular Volume 77.8 fL (80.0-98.0); Mean Platelet Volume 11.6 fL (9.4-12.3); Monocytes Absolute Auto 0.4 X10*3/uL (0.1-1.2); Monocytes Percent Auto 6.4 % (2-11); Neutrophils Absolute Auto 3.8 x10*3/uL (2.0-8.3); Neutrophils Percent Auto 54.9 % (45-73); Platelet Count 300 X10*3/uL (160-400); Red Blood Count 5.09 X10*6/uL (4.20-5.50); Red Cell Distribution Width 17.6 % (11.0-16.0); White Blood Count 6.9 X10*3/uL (4.8-10.8)
[2024-10-01 11:23] LABS: Estimated Average Glucose 137 mg/dL; Hemoglobin A1C 151.8036 umol/L; Hemoglobin A1c % 6.4 % (<6.0); Total Hemoglobin (HGBA1C) 3294.2655 umol/L
--- OUTSIDE RECORDS SUMMARY | 2024-10-01 11:47 | XMS_ITS | Clinical Summary ---
Author Organization [facility] Address [address] [place] [address] Care Team Providers Care Drug Enforcement Agent Name Role Phone Gus Giles MD Primary Care Provider [phone] Allergies Active Allergy Reactions Criticality Noted Date [...] Active CINNAMON PO Take by mouth. Active fbhbls-vvzqdpdlc-gev nesium sulfates (Suprep Bowel Prep Kit) 17.5-3.13-1.6 [...] 10/11/2024 2:00 PM EDT Consult [facility] [address] [facility] [address] [place] [address] John Mccurdy MD [address] [place] [address] [id number] Health Maintenance Due Date Last Done Comments [...] this topic Medical Devices Implanted Type Area Looping Machine Operator Device Identifier Shelf Expiration Date Model / Serial / Lot [id number] Cement Bone [employer] R 40gm Grn - [id number] Implanted:Qty: 2 on 12/13/2018 by Deandre Arndt MD at [facility] Cement Right: Knee [employer] 11/30/2021 [id number] / / [id number] Restrictor Bncmnt 25mm Perez 16-21mm Hip Femoral Plug Sterl - [id number] Implanted:Qty: 1 on 12/13/2018 by Deandre Arndt MD at [facility] Joint Prosthesis Right: Knee [employer] 08/21/2028 [id number] / / [id number] Component Patellar Std 9mm 35mm Nxgn Uhmwpe Knee Sterl Blue - [id number] Implanted:Qty: 1 on 12/13/2018 by Deandre Arndt MD at [facility] Joint Prosthesis Right: Knee [employer] [id number] 08/02/2026 [id number] / / [id number] Component Femoral 6 Std Knee Right Crcte Rtn Cmnt Persona - [id number] Implanted:Qty: 1 on 12/13/2018 by Deandre Arndt MD at [facility] Joint Prosthesis Right: Knee [employer] [id number] 05/02/2028 [id number] / / [id number] Insert Articular 3-11 E-F 10mm Knee Right Crcte Rtn Polyethe - [id number] Implanted:Qty: 1 on 12/13/2018 by Deandre Arndt MD at [facility] Joint Prosthesis Right: Knee [employer] [id number] 08/30/2024 [id number] / / [id number] Baseplate Tibial Persona Ntr Tibia 5d E Knee Right Stem - [id number] Implanted:Qty: 1 on 12/13/2018 by Deandre Arndt MD at [facility] Joint Prosthesis Right: Knee [employer] [id number] 08/30/2028 [id number] / / [id number] Advance Directives * Full Code (Latest Code Status on File) Date Activated Date Inactivated Comments 12/13/2018 11:58 AM * Full Code Date Activated Date Inactivated Comments 12/13/2018 6:45 AM 12/13/2018 11:58 AM Care Teams Drug Enforcement Agent Relationship Specialty Start Date End Date Gus Giles MD [address] [place] [address] PCP - General Family Medicine 06/20/24
--- OUTSIDE RECORDS SUMMARY | 2024-10-01 11:47 | XMS_ITS | Clinical Summary ---
Author Organization [facility] ity Address [address] [place] [address] Care Team Providers Care Plastics Tooling Engineer Name Role Phone Gus Giles MD Primary Care Provider [phone] Allergies Active Allergy Reactions Criticality Noted Date [...] on 02/08/2024 10:37 AM. Workstation Name - [id number] Procedure Note Duglas Augustin MD - 04/16/2024 [...] MD on 02/08/2024 10:37AM. Workstation Name - [id number] us Gus Giles MD IMG BI PROCEDURES Final Resul t * BONE DENSITY STUDY (08/07/2023 10:16 AM EST) Anatomical Region Laterality Modality Bone Densitometr y 04/13/2023 9:51 AM EDT Narrative 08/07/2023 11:04 AM EST Bone density study Indication and risk factors: Postmenopausal female. ??Screening for osteoporosis. ??No priors. Study acquired on a Benjamin's Desk densitometer. Imaging of the lumbar spine and [...] forosteoporosis. No priors. Study acquired on a Benjamin's Desk densitometer. Imaging of thelumbar spine and hip [...] 08/07/2023 11:04 AM.Workstation Name - LOUIE- Result [facility] Gus Giles MD IMG DXA PROCEDURES Final Resu lt * Falls Risk Assessment (03/30/2022) [facility] Falls Risk Assessment abstracted Result [facility] Historical Provider HEALTH MAINTENANCE Final Result * Depression Screening (03/30/2022) [facility] Depression Screening abstracted Result [facility] Provider HEALTH MAINTENANCE Final Result * Hepatitis C Screening (03/30/2022) [facility] Hepatitis C Screening abstracted Result [facility] Provider HEALTH MAINTENANCE Final Result * (ABNORMAL) Lipid panel (03/30/2022) [facility] Triglycerides 101 <=150 mg/dL Cholesterol 211(A) 0 - 200 mg/dL HDL 67 33 - 92 mg/dL LDL Cholesterol 124 50 - 130 mg/dL Blood Venous blood specimen / Unknown Result [facility] Provider LAB BLOOD ORDERABLES Tamia l Result from Last 3 Months or Most Recently Relevant to Health Maintenance Care Teams Plastics Tooling Engineer Relationship Specialty Start Date End Date Gus Giles MD [address] [address] PCP - General 02/03/20
--- OUTSIDE RECORDS SUMMARY | 2024-10-01 11:47 | XMS_ITS | Encounter Summary ---
Author Organization [facility] Address [address] [place] [address] Care Team Providers Care National Account Representative Name Role Phone Kevon Estrella MD Primary Care Provider Unavailable Pcp, No Primary Care Provider UnavailGus Malhotra MD Primary Care Provider [phone] Encounter Details Date Type Department Care Team (Late st Contact Info) Description 11/15/2019 Scanned Document [facility]GI [facility] [address] [place] [address] Monica Spencer MD 1 [place] [address] Social History Tobacco Use Types Packs/Day Years [...] Description 10/11/2024 2:00 PM EDT Consult [facility]GI [facility] [address] [facility] [address] [place] [phone] John Mccurdy MD [address] [facility] [address] [place], [place] [address] documented as of this encounter Procedures Procedure Name Priority Date/Time Associated Diagnosis Comments PATHOLOGY REPORT 11/15/2019 12:0 0 AM EDT documented in this encounter Results * (REPORT) PATHOLOGY REPORT (11/15/2019 12:00 AM EDT) Monica Spencer MD PATHOLOGY/CYTO LOGY ORDERABLES documented in this encounter Visit Diagnoses Not on filedocumented in this encounter Care Teams National Account Representative Relationship Specialty Start Date End Date Kevon Estrella MD PCP - General Internal Medicine 11/28/18 02/06/23 Pcp, No PCP - General General Medicine 07/14/23 06/19/24 Gus Giles MD [address] [place] [address] PCP - General Family Medicine 06/20/24 documented as of this encounter
--- OUTSIDE RECORDS SUMMARY | 2024-10-01 11:47 | XMS_ITS | Encounter Summary ---
Author Organization [facility] Address [address] [place] [address] Care Team Providers Care Director Of Instructional Technology Name Role Phone Gus Giles MD Primary Care Provider Encounter Details Date Type Department Care Team (Late st Contact Info) Description 04/11/2024 1:57 PM EDT Hospital Encounter TH HISTORIC ENCOUNTERS [facility] Gus Giles MD [address] [place] [phone] Social History Tobacco Use Types Packs/Day Years [...] 9:21 PM Encounter Date: 04/11/2024 Status: Signed Lettuce Cutter: Gus Giles MD (Physician) [facility] 1945 79 y.o. 04/14/24 Pre-Op Dx PRE-OP DIAGNOSIS: Carpal tunnel syndrome, right: Trigger finger Proposed Proc. PROPOSED PROCEDURE: Right endoscopic carpal tunnel release, right middle and ring trigger release PROCEDURE DATE: 05/17/2024 Surg/Endo SURGEON/ENDOSCOPIST: Dr. Latif Rodríguez [facility] SURGEON/ENDOSCOPIST Anesthetic Preference: MAC Here [...] ? ECG 12 lead Gus Giles MD [facility] 9 [facility], [address] [place] [address] documented in this encounter Plan of Treatment Not on file documented as of this encounter Visit Diagnoses Not on filedocumented in this encounter Care Teams Director Of Instructional Technology Relationship Specialty Start Date End Date Gus Giles MD [address] [address] PCP - General 02/03/20 documented as of this encounter
--- OUTSIDE RECORDS SUMMARY | 2024-10-01 11:47 | XMS_ITS | Encounter Summary ---
Author Organization [facility] Address [address] [place] [address] Care Team Providers Care Service Crew Supervisor Name Role Phone Kevon Estrella MD Primary Care Provider Unavailable Pcp, No Primary Care Provider UnavailGus Malhotra MD Primary Care Provider Encounter Details Date Type Department Care Team (Late st Contact Info) Description 11/15/[address] [facility] [address] [facility] [address] [place] [address] Giovanna Olmstead, DOPE WEIGH OPERATOR [address] [place] [address] Social History Tobacco Use Types Packs/Day Years [...] Description 10/11/2024 2:00 PM EDT Consult [facility] [address] [facility] [address] [place] [phone] John Mccurdy MD 113 [facility] [address] [place] [address] documented as of this encounter Visit Diagnoses Not on filedocumented in this encounter Care Teams Service Crew Supervisor Relationship Specialty Start Date End Date Kevon Estrella MD PCP - General Internal Medicine 11/28/18 02/06/23 Pcp, No PCP - General General Medicine 07/14/23 06/19/24 Gus Giles MD [address] [place] [address] PCP - General Family Medicine 06/20/24 documented as of this encounter
--- OUTSIDE RECORDS SUMMARY | 2024-10-01 11:47 | XMS_ITS | Encounter Summary ---
Author Organization [facility] Address [address] [place] [address] Care Team Providers Care Astrophysics Professor Name Role Phone Pcp, No Primary Care Provider Gus Garcia MD Primary Care Provider [phone] Encounter Details Date Type Department Care Team (Late st Contact Info) Description 02/16/[address] [facility] [address] [place] [address] Khurram Rodriguez Social History Tobacco Use Types [...] 10/11/2024 2:00 PM EDT Consult [facility] [address] [facility] [address] [place] [phone] John Mccurdy MD [address] [facility] [address] [place] [address] documented as of this encounter Visit Diagnoses Not on filedocumented in this encounter Care Teams Astrophysics Professor Relationship Specialty Start Date End Date Pcp, No PCP - General General Medicine 07/14/23 06/19/24 Gus Giles MD [address] [place] [address] PCP - General Family Medicine 06/20/24 documented as of this encounter
--- OUTSIDE RECORDS SUMMARY | 2024-10-01 11:47 | XMS_ITS | Clinical Summary ---
Author Organization [facility] Address [address] [place] [address] Care Team Providers Care Stenciler Name Role Phone Gus Giles MD Primary Care Provider [phone] Allergies Active Allergy Reactions Criticality Noted Date [...] age to complete this topic Care Teams Stenciler Relationship Specialty Start Date End Date Gus Giles MD PCP - General Family Medicine 02/03/20
[2024-10-01 11:57] LABS: Alanine Aminotransferase 16 U/L (0-31); Albumin Level 4.2 g/dL (3.5-5.0); Alkaline Phosphatase 96 U/L (39-117); Anion Gap 11 (12-20); Aspartate Amino Transferase 26 U/L (5-31); Bilirubin Total 0.4 mg/dL (0.0-1.0); Blood Urea Nitrogen 10 mg/dL (9-16); Calcium 9.4 mg/dL (8.4-10.2); Carbon Dioxide 22 mmol/L (22-29); Chloride 111 mmol/L (96-108); Cholesterol 222 mg/dL (<200); Estimated Glomerular Filt Rate > 60; Glucose Random 149 mg/dL (60-115); HDL Cholesterol 71 mg/dL (>40); LDL Cholesterol Calculated 130 mg/dL (<100); Sodium 140 mmol/L (135-145); Total Protein 7.6 g/dL (6.5-8.0); Triglycerides 107 mg/dL (<150)
[2024-10-01 12:02] LABS: Free T4 (Free Thyroxine) 0.93 ng/dL (0.71-1.85); TSH reflex Free T4 2.48 uIU/mL (0.32-4.0); Vitamin D 25-OH Total 29.5 ng/mL (>30)
[2024-10-01 12:13] LABS: Folate 13.9 ng/mL (> or = 4.0); Vitamin B12 409 pg/mL (200-900)
[2024-10-02 21:47] LABS: Antibody to SS-A Antigen <1.0 NEG AI (<1.0 NEG); Antibody to SS-B Antigen <1.0 NEG AI (<1.0 NEG)
== END 2024-10-01 10:06 | disposition home or self-care (01) ==
LOC: HO.LAB 10:05
DX: Z00.00 Encounter for general adult medical examination without abnormal findings (principal); E78.00 Pure hypercholesterolemia, unspecified; R68.2 Dry mouth, unspecified; R73.02 Impaired glucose tolerance (oral)
CPT/HCPCS: 36415; 80053; 80061; 82306; 82607; 82746; 83036; 84439; 84443; 85025; 86235

== ENCOUNTER 2024-11-13 09:18 | Outpatient (AMB) | payer MEDICARE, SELFPAY ==
--- NOTE | 2024-11-13 09:21 | MHC.PC.OV ---
Vital Signs 11/13/24 09:22 Height 5 ft 4 in Weight 193 lb 4 oz BMI 33.2 BP 130/80 Blood Pressure Location Lt brachial Position Sitting Pulse 75 Pulse Source Pulse Oximeter Temp 96.8 F Temp Source Temporal Artery Scan Pulse Oximetry (%) 96 Oxygen Delivery Method Room Air Intake Visit Reasons: f/u elevated blood pressure Intake Note: Patient is here to follow up on Elevated blood pressure. Football Pad Repairer Required: No Legal Receptionist: Not Required per policy Accompanied by: Self / Same As Patient Allergies naproxen [NAPROXEN] Allergy (Intermediate, Verified 11/13/24 09:35) SWELLING, RASH, rash, swelling rosuvastatin [From CRESTOR] Allergy (Intermediate, Verified 11/13/24 09:35) MUSCLE ACHE simvastatin [SIMVASTATIN] Allergy (Intermediate, Verified 11/13/24 09:35) ITCHING, joint pain, cough Darvon Allergy (Unknown, Verified 11/13/24 09:35) rash, swelling oxybutynin Allergy (Unknown, Verified 11/13/24 09:35) itching From DARVON Allergy (Intermediate, Uncoded 11/13/24 09:35) HIVES,SWELLING Medication List - Last Reconciled 11/13/24 by Carmina Sepulveda PA-C alprazolam 0.5 mg PO DAILY PRN [id number] 1.7 mg-400 mcg- 2.4 mcg (Neuriva Plus [employer]) caps PO cholecalciferol (vitamin D3) 125 mcg PO DAILY clotrimazole 1% 1 appl topical BID dexlansoprazole (Dexilant) 60 mg PO DAILY nystatin 1 appl topical DAILY sertraline 50 mg PO DAILY Tobacco use date assessed: 11/13/24 Fall risk assessment: No Falls in past year Last assessed Fall Risk: 11/13/24 Dental Screening Dental Screen Date: 09/26/24 HPI f/u elevated blood pressure HPI Details 79-year-old female with past medical history of hypercholesterolemia, impaired glucose tolerance, GERD, depression and elevated blood pressure last seen 08/2024 coming in for follow up. Presenting for a follow-up for chronic condition management. Hypertension is managed with generally controlled readings at home. Depression management includes a dosage adjustment of sertraline while maintaining well-being. Prediabetes is identified with a recent A1c of 6.4, indicating close monitoring required. Cholesterol management advised due to LDL level of 130 mg/dL, dietary modifications recommended. Negative antibody tests for Sjogren's Syndrome, but dry mouth is managed effectively. [facility] History History of knee replacement H/O hand surgery Family History Father Prostate cancer Mother Breast cancer Brother FH: mental illness Social History Housing: House Housing Other:: Downstairs unit in son's home Alcohol intake: current Alcohol intake frequency: holidays/special occasions only Alcohol type: wine Patient Tobacco Use Status: Former Tobacco user Years Smoked: quit over 40 years e-Cigarette/Vaping Use: Never Used Second Hand Smoke Exposure: Yes service: No Current occupational status: retired Cognitive needs: No Hearing needs: Yes (Hearing aids) Vision needs: Yes (Glasses) Questionnaire PHQ-9 Over the last 2 weeks, how often have you been bothered by any of the following problems? 1. Little interest or pleasure in doing things: several days 2. Feeling down, depressed, or hopeless: several days 3. Trouble falling or staying asleep, or sleeping too much: several days 4. Feeling tired or having little energy: several days 5. Poor appetite or overeating: several days 6. Feeling bad about yourself - or that you are a failure or have let yourself or your family down: several days 7. Trouble concentrating on things, such as reading the newspaper or watching television: not at all 8. Moving or speaking so slowly that other people could have noticed. Or the opposite - being so fidgety or restless that you have been moving around a lot more than usual: not at all 9. Thoughts that you would be better off or of hurting yourself in some way: not at all Total score: 6 Depression Screening Interpretation: Positive Depression Screening Done: Yes Source: Developed by Drs. Marc Dai, Felicita Ren, Andrew Braun and colleagues, with an educational yoli from [employer]. Thrive Questionnaire Date Thrive assessed: 09/26/24 I am a: Patient What is your living situation today?: I have a steady place to live Within the past 12 months, did the food you bought not last and you didn't have the money to get more?: I choose not to answer this question Within the past 12 months, did you worry whether your food would run out before you got money to buy more?: I choose not to answer this question Do you have trouble paying for medicines?: I choose not to answer this question Do you have trouble getting transportation to medical appointments?: I choose not to answer this question Do you have trouble paying your heating and electricity bill?: I choose not to answer this question Do you have trouble taking care of your child, family member or friend?: I choose not to answer this question Do you have trouble with day-to-day activities such as bathing, preparing meals, shopping, managing finances, etc.?: No Are you currently unemployed and looking for a job?: No Are you interested in more education?: No Please select the resources that you would like help with: Food, Paying for medicine and Utilities Currently or been in a relationship where the following occur: No concerns reported THRIVE Score: 0 AUDIT C Alcohol Use Questionnaire (AUDIT-C) 1. How often do you have a drink containing alcohol?: Never Total Score: 0 FAUSTO-7 AMB Questionnaire FAUSTO-7 Date FAUSTO - 7 assessed: 11/13/24 Feeling nervous, anxious, or on edge: 3 = Nearly every day Not being able to stop or control worryin = Nearly every day Worrying too much about different things: 3 = Nearly every day Trouble relaxin = Several days Being so restless that it is hard to sit still: 1 = Several days Becoming easily annoyed or irritable: 1 = Several days Feeling afraid as if something awful might happen: 1 = Several days Total FAUSTO-7 score (0-4 normal; 5-9 mild; 10-14 moderate; 15-21 severe): 13 Source: Developed by Drs. Marc Dai, Felicita Ren, Andrew Braun and colleagues, with an educational yoli from [employer]. Review of Systems Const Denies fever(s), Denies headache(s) and Denies poor appetite Eyes Reports no additional complaints ENT Denies dizziness, Reports dry mouth and Denies headache(s) Card Denies chest pain, Denies lightheadedness and Denies dyspnea Resp Denies cough and Denies dyspnea GI Denies abdominal pain, Denies constipation, Denies diarrhea, Denies nausea and Denies vomiting Reports no additional complaints Musc Reports no additional complaints and Denies abnormal gait Skin/Breast Reports system reviewed and no additional complaints, except as documented Neuro Denies abnormal gait, Denies dizziness and Denies headache(s) Psych Reports no additional complaints Physical exam (Primary Care) Vital Signs: Last Vital Signs Temp 96.8 F 11/13/24 09:22 Pulse 75 11/13/24 09:22 BP 130/80 11/13/24 09:22 Pulse Ox 96 11/13/24 09:22 Oxygen Delivery Method Room Air 11/13/24 09:22 BMI result Body Mass Index 33.2 Tobacco/Smoking Status: Tobacco use Status Tobacco use date assessed 11/13/24 11/13/24 09:29 Patient Tobacco Use Status Former Tobacco user 11/13/24 09:29 e-Cigarette/Vaping Use Never Used 11/13/24 09:29 PHQ-9: PHQ-9 Score PHQ-9: Total score 6 11/13/24 09:29 Depression Screening Interpretation: Positive Thrive Assessment: Date of Thrive Assessment Date Thrive assessed 09/26/24 11/13/24 09:29 Currently or been in a relationship where the following occur: No concerns reported Const General: cooperative, healthy appearing, comfortable and no acute distress Orientation/consciousness: patient oriented x3 HENMT Head: Yes normocephalic Ears: hearing grossly normal bilaterally General nose exam: Normal external nose present Eyes General: appearance normal, both eyes and all related structures Conjunctivae: conjunctivae normal Neck Neck: Yes full ROM and Yes no lymphadenopathy Resp Effort & Inspection: normal respiratory effort Auscultation: clear to auscultation bilaterally, no crackles, no rales, no rhonchi and no wheezes Cardio Rate: regular rate Rhythm: regular rhythm Skin General skin exam: no rashes or lesions noted Neuro General: patient oriented x3 Gait exam (Neuro): Normal gait present Extrem General: Yes normal to inspection, Yes full ROM and No edema Psych Affect: normal affect Attitude: cooperative Insight: Good insight present (Psych) Judgement: Good judgement present (Psych) Coding Level of Care Code Est Pt Level 3 (28094) Diagnoses Anxiety F41.9 Depression F32.A GERD (gastroesophageal reflux disease) K21.9 Hypercholesterolemia E78.00 Impaired glucose tolerance R73.02 Dry mouth R68.2 Elevated blood pressure reading without diagnosis of hypertension R03.0 Candidal dermatitis B37.2 Assessment & Plan Assessment & Plan (1) Anxiety: Code(s): F41.9 - Anxiety disorder, unspecified Category: Medical Plan: Sertraline decreased to 50 mg at patient request at last visit. Awaiting appointment for counseling at this time. (2) Depression: Code(s): F32.A - Depression, unspecified Category: Medical Plan: see above. (3) GERD (gastroesophageal reflux disease): Code(s): K21.9 - Gastro-esophageal reflux disease without esophagitis Category: Medical Plan: Avoid trigger foods such as citrus, tomato products, soda, caffeine, spicy foods and other foods that may be irritating to your stomach. Avoid laying flat 3-4 hours after eating and elevate the head of the bed 30 degrees to prevent acid from moving into the esophagus. Continue on dexlansoprazole (4) Hypercholesterolemia: Code(s): E78.00 - Pure hypercholesterolemia, unspecified Category: Medical Plan: Avoid foods that are high in cholesterol such as red meat, fried foods, eggs and baked goods. Triglyceride goal of less than 150 and LDL goal of less than 100. LDL 130 on last labs. Discussed with patient dietary and lifestyle modification and patient was provided with cholesterol resources. Plan to repeat labs in 3 months with a appointment to follow up (5) Impaired glucose tolerance: Comment: highest A1c 6.4% Code(s): R73.02 - Impaired glucose tolerance (oral) Category: Medical Plan: Decrease the amount of carbohydrates such as pasta, bread, rice, and potatoes and limit the amount of sweets. Although fruits are generally healthy they should be eaten in moderation as they are still high in sugar. A1c 6.4% on last blood work. Discussed with patient the importance of dietary and lifestyle modification and plan to repeat in 3 months. (6) Dry mouth: Code(s): R68.2 - Dry mouth, unspecified Category: Medical Plan: Sjogren labs negative. She does utilize biotene as needed continue with conservative measures. (7) Elevated blood pressure reading without diagnosis of hypertension: Code(s): R03.0 - Elevated blood-pressure reading, without diagnosis of hypertension Category: Medical Plan: Blood pressure in the office today 130/80 in reviewing patient's at home blood pressures all values were within normal limits with the exception of 1 stand alone elevated blood pressure. Plan to continue to monitor blood pressures both in the office and at home. Encouraged healthy diet, regular exercise and decrease salt intake. (8) Candidal dermatitis: Code(s): B37.2 - Candidiasis of skin and nail Category: Medical Plan: Resolved at this time with the use of anti fungal creams and powders. Plan Plan to follow up again in 3 months for annual exam with blood work review. During the visit, I focused on addressing the patient's chronic conditions and ongoing health maintenance. I confirmed the management strategies for Essential Hypertension through home monitoring, discussed medication management for Major Depressive Disorder, and maintained the treatment plan for Gastroesophageal Reflux Disease. I emphasized lifestyle changes to prevent the progression of Prediabetes, particularly focusing on dietary changes. For Hypercholesterolemia, I advised a diet modification to help lower LDL levels. We are addressing the patient's dry mouth with Biotene products effectively, despite negative Sjogren's Syndrome tests. I also reviewed allergy management with [id number] antihistamines. The patient is scheduled for a follow-up visit in three months to monitor these areas and an annual wellness exam was also arranged. This note was constructed using voice recognition software. While every effort has been made to ensure accuracy and steeler, still areas may have been included sometimes these areas may affect the content or meeting of the given symptoms. Total time spent caring for the patient today was 20 minutes. This includes time spent before the visit reviewing the chart, time spent during the visit, and time spent after the visit and documentation. Patient was informed and verbally consented to the use of an ambient scribe for clinic note documentation during this visit.
[2024-11-13 09:22] VITALS: BP 130/80; PULSE 75; TEMP 36; O2SAT 96; BMI 33.2
--- OUTSIDE RECORDS SUMMARY | 2024-11-13 09:49 | XMS_ITS | Clinical Summary ---
Author Organization [facility] Address [address] [place] [address] Care Team Providers Care Production Staff Worker Name Role Phone Gus Giles MD Primary Care Provider [phone] Allergies Active Allergy Reactions Criticality Noted Date [...] age to complete this topic Care Teams Production Staff Worker Relationship Specialty Start Date End Date Gus Giles MD PCP - General Family Medicine 02/03/20
--- OUTSIDE RECORDS SUMMARY | 2024-11-13 09:50 | XMS_ITS | Encounter Summary ---
Author Organization [employer] Address [address] [place] [address] Care Team Providers Care Toe Lining Closer Name Role Phone Gus Giles MD Primary Care Provider [phone] Encounter Details Date Type Department Care Team (Late st Contact Info) Description 04/11/2024 1:57 PM EDT Hospital Encounter TH [facility]OR[facility]OUN[facility] ONLY Gus Giles MD [address] [place] [address] Social History Tobacco Use Types Packs/Day Years [...] 9:21 PM Encounter Date: 04/11/2024 Status: Signed Purchase Order Checker: Gus Giles MD (Physician) [facility] 1945 79 y.o. 04/14/24 Pre-Op Dx PRE-OP DIAGNOSIS: Carpal tunnel syndrome, right: Trigger finger Proposed Proc. PROPOSED PROCEDURE: Right endoscopic carpal tunnel release, right middle and ring trigger release PROCEDURE DATE: 05/17/2024 Surg/Endo SURGEON/ENDOSCOPIST: Dr. Latif Rodríguez [facility]: [facility] SURGEON/ENDOSCOPIST Anesthetic Preference: MAC Here for [...] ? ECG 12 lead Gus Giles MD [address] [place] [address] documented in this encounter Plan of Treatment Not on file documented as of this encounter Visit Diagnoses Not on filedocumented in this encounter Care Teams Toe Lining Closer Relationship Specialty Start Date End Date Gus Giles MD PCP - General 02/03/20 documented as of this encounter
--- OUTSIDE RECORDS SUMMARY | 2024-11-13 09:50 | XMS_ITS | Encounter Summary ---
Author Organization [facility] Address [address] [place] [address] Care Team Providers Care Environmental Specialist Name Role Phone Pcp, No Primary Care Provider Gus Garcia MD Primary Care Provider [phone] Encounter Details Date Type Department Care Team (Late st Contact Info) Description 02/16/[address] [facility] [address] [place] [id number] Khurram Rodriguez Social History Tobacco Use Types Packs/Day Years Used Date Smoking Tobacco: Former Cigarettes Smokeless Tobacco: Never Comments:quit 40+ years ago Alcohol Use Standard Drinks/Week Comments Not Currently 0 (1 standard drink = 0.6 oz pur e alcohol) less than monthly Comments Unknown Sex and Gender Information Value Date Recorded Sex Assigned at Female 10/11/2024 2:59 PM EDT Legal Sex Female 1:49 PM EDT Gender Identity Female 10/11/2024 2:59 PM EDT Sexual Orientation Heterosexual (straight) 10/11 2:59 PM EDT documented as of this encounter Miscellaneous Notes * Telephone Encounter - Khurram Rodriguez - 02/16/2024 7:00 PM EDT LVM colon recall DH OCS documented in this encounter Plan of Treatment Upcoming Encounters Date Type Department Care Team (Late st Contact Info) Description 12/18/2024 10:30 AM EDT Hospital Encounter [facility] [address] [place] [address] John Mccurdy MD [address] [place] [address] 12/18/2024 10:30 AM EDT - 12/18/2024 11:15 AM EDT Surgery [facility] ENDO PROC [facility] [address] [place] [phone] John Mccurdy MD [address] [place] [id number] COLONOSCOPY Scheduled Procedures Name Priority Associated Diagnoses Date/Ti me COLONOSCOPY Gastroesophageal reflux disease with esophagitis without hemorrhage Dysphagia, unspecified type History of colon polyps 12/18/2024 10:30 AM EDT ENDOSCOPY UPPER Gastroesophageal reflux disease with esophagitis without hemorrhage Dysphagia, unspecified type History of colon polyps 12/18/2024 10:30 AM EDT documented as of this encounter Visit Diagnoses Not on filedocumented in this encounter Care Teams Environmental Specialist Relationship Specialty Start Date End Date Pcp, No PCP - General General Medicine 07/14/23 06/19/24 Gus Giles MD [address] [place] [address] PCP - General Family Medicine 06/20/24 documented as of this encounter
--- OUTSIDE RECORDS SUMMARY | 2024-11-13 09:50 | XMS_ITS | Clinical Summary ---
Author Organization [facility] Address [address] [place] [address] Care Team Providers Care Gravity Meter Observer Name Role Phone Gus Giles MD Primary Care Provider [phone] Allergies Active Allergy Reactions Criticality Noted Date [...] 09/22/2020 Depression 03/12/2020 Episode of recurrent major d epressive disorder ([facility] V24) 02/03/2020 Gastroesophageal reflux disease 02/03/2020 Generalized anxiety [...] , 03/26/2022, Additional history exists RSV Immunization Adult Patients Completed 03/22/2024 HIB Vaccines Aged Out No [...] age to complete this topic Meningococcal B Vaccine Aged Out No l onger eligible based on patient's age to complete [...] state HM HEPATITIS C SCREENING Routine 03/30/2022 DEPRESSION SCREENING Routine 03/30/2022 HM FALLS RISK [...] on 02/08/2024 10:37 AM. Workstation Name - [id number] Procedure Note Duglas Augustin MD - 04/16/2024 [...] MD on 02/08/2024 10:37AM. Workstation Name - [id number] us Gus Giles MD IMG BI PROCEDURES Final Resul t * BONE DENSITY STUDY (08/07/2023 10:16 AM EST) Anatomical Region Laterality Modality Bone Densitometr y 04/13/2023 9:51 AM EDT Narrative 08/07/2023 11:04 AM EST Bone density study Indication and risk factors: Postmenopausal female. ??Screening for osteoporosis. ??No priors. Study acquired on a [employer] densitometer. Imaging of the lumbar spine and [...] forosteoporosis. No priors. Study acquired on a [employer] densitometer. Imaging of thelumbar spine and hip [...] 08/07/2023 11:04 AM.Workstation Name - [id number]- [id number] Gus Giles MD IMG DXA PROCEDURES Final Resu lt * Falls Risk Assessment (03/30/2022) [facility] Falls Risk Assessment abstracted Result [facility] Provider HEALTH MAINTENANCE Final Result * Depression Screening (03/30/2022) [facility] Depression Screening abstracted Result [facility] Provider HEALTH MAINTENANCE Final Result * Hepatitis C Screening (03/30/2022) [facility] Hepatitis C Screening abstracted Result [facility] Provider HEALTH MAINTENANCE Final Result * (ABNORMAL) Lipid panel (03/30/2022) [facility] Triglycerides 101 <=150 mg/dL Cholesterol 211(A) 0 - 200 mg/dL HDL 67 33 - 92 mg/dL LDL Cholesterol 124 50 - 130 mg/dL Blood Venous blood specimen / Unknown Result [facility] Provider LAB BLOOD ORDERABLES Tamia l Result from Last 3 Months or Most Recently Relevant to Health Maintenance Care Teams Gravity Meter Observer Relationship Specialty Start Date End Date Gus Giles MD PCP - General 02/03/20
--- OUTSIDE RECORDS SUMMARY | 2024-11-13 09:50 | XMS_ITS | Data Portability ---
Author Organization [place] - [facility], Allergy Address [address] [address] Care Team Providers Care Meat And Seafood Manager Name Role Phone JACKSONJANIS QING Primary Care Provider Assessment No assessment recorded. Plan of Treatment Reminders Order Date Submit Date Provider Last Modified By Organization Details Last Modified Time Details Appointments None record ed. Lab None record ed. Referral None record ed. Procedures None record ed. Surgeries None record ed. Imaging None record ed. Medication Orders None record ed. Patient TargetsNo targets recorded. Patient InstructionsNo instructions recorded. Reason for Referral None Reported. Results Created Date Observation Date Name Description Value Unit Range Abnormal Flag Note LastModifiedBy Organization Detail LastModifiedTime 12/13/19 audio gram No observ ation record ed. BARCODE Not Available 2023 12:46:01 02/22/20 24 01/02/2020 imagi ng/di agnos tic resul t No observ ation record ed. [email or web address] Not Available 20:26:35 02/22/20 24 03/20/2020 imagi ng/di agnos tic resul t No observ ation record ed. [email or web address] Not Available 20:26:51 02/22/20 24 03/20/2020 imagi ng/di agnos tic resul t No observ ation record ed. [email or web address] Not Available 20:26:52 02/22/20 24 04/01/2020 audio gram No observ ation record ed. [email or web address] Not Available 20:26:59 Result Notes None recorded. Problems Name Problem SNOMED Code Status Onset Date Resolution Date Notes Provider Name and Address Organization Details Recorded Time Sensorine ural hearing loss of bilateral ears [id number] Active 2019 Sensorine ural hearing loss, bilateral ; Note: Date Diagnosed : 03/20/2020 8:43 PM (H90.3) Not Available [facility] 4 02:31:40 Tinnitus of right ear [id number] 08 Active 2019 Tinnitus, right ear; Note: Date Diagnosed : 03/20/2020 8:43 PM (H93.11) Not Available [facility] 4 02:31:27 Problem Notes None recorded. Procedures Surgical History Date Name Laterality Status Provider Name and Address Organization Details Recorded Time 12/11/19 24 Air only Audio - 97790 completed JESSIKA ALLEN [address] [place] [address], [phone], [facility] 12/11/2023 10:21:25 12/11/19 24 Tympanometry - 97468 completed SILAS PENA [address], [phone], [facility] 12/11/2023 10:21:59 12/11/19 24 SRT & Speech Recognition - 08056 completed SILAS PENA [address], [phone], [facility] 12/11/2023 10:21:37 total knee replacement completed JC LEWIS MD [address] [place] [address], [phone], [facility] 12/11/2023 10:33:06 Imaging Results Imaging Date Name Status LastModified by Organiz ation Details LastModified Time 12/13/2023 audiogram completed BARCODE Information no t available 12/13/2023 12:46:01 01/02/2020 imaging/diagno stic result completed Information not available 02/22/2024 20:26:35 03/20/2020 imaging/diagno stic result completed Information not available 02/22/2024 20:26:51 03/20/2020 imaging/diagno stic result completed Information not available 02/22/2024 20:26:52 04/01/2020 audiogram completed Information not available 02/22/2024 20:26:59 Procedure Notes None recorded. Medical Equipment None Reported. Allergies Allergen ID Allergen Name Allergen Category Reaction Reaction Severity Criticality Documentation Date Start Date Code Code System Note Provider Name and Address Organization Details Recorded Time 68273 propoxyph meron hydrochlo ride medicatio n hives Not available Not available 11/14/2023 96068 RxNorm React ion: skin rashe s, hives ;; Not Available [facility] 4 00:55:24 99474 methadone medicatio n other Not available Not available 11/14/2023 6813 RxNorm React ion: unkno wn, unspe cifie d;; Not Available [facility] 4 00:55:25 25131 naproxen medicatio n angioedem a Not available Not available 11/14/2023 7258 RxNorm React ion: swell ing of tongu e or mouth ;; Not Available [facility] 4 00:55:33 67838 tramadol Not available angioedem a Not available Not available 11/14/2023 38145 RxNorm React ion: swell ing of tongu e or mouth ;; Not Available [facility] 4 00:55:37 Medications Name Sig Start Date Stop Date Status Note LastModified by Organization Details LastModified Time promethaz ine-DM 6.25 mg-15 mg/5 mL oral syrup TAKE 5 ML BY MOUTH 4 TIMES A DAY EVERY 6 HOURS NEEDED FOR COUGH 12/10 completed Not Available Not Available Not Available meloxicam 15 mg tablet TAKE 1 TABLET BY MOUTH EVERY DAY 12/10 completed Not Available Not Available Not Available sertralin e 100 mg tablet TAKE 2 TABLETS BY MOUTH EVERY DAY active Not Available Not Available No t Available alprazola m 0.5 mg tablet TAKE 1 TABLET BY MOUTH EVERY DAY NEEDED active Not Available Not Available No t Available nystatin 100,000 unit/gram topical cream 12/10 completed Medicati on ID: [id number] D uration Value: 10 Brand Name: nystatin Send Method: E-Prescr ibed Sub s Allowed: subs OK Speci al Instruct ion: APPLY TO FOLDING AREAS TWICE A DAY FOR 7 TO 10 DAYS PER ERUPTION Medicat ionGener icName: nystatin Medicat ion ID: [id number] D uration Value: 10 Brand Name: nystatin Send Method: E-Prescr ibed Sub s Allowed: subs OK Speci al Instruct ion: APPLY TO FOLDING AREAS TWICE A DAY FOR 7 TO 10 DAYS PER ERUPTION Medicat ionGener icName: nystatin Not Available Not Available Not Available betametha sone dipropion ate 0.05 % topical ointment active Medicati on ID: [id number] D uration Value: 30 Brand Name: betameth asone dipropio leodan Sen d Method: E-Prescr ibed Sub s Allowed: subs OK Medic ationGen ericName : betameth asone dipropio leodan Not Available Not Available Not Available oxycodone 5 mg tablet TAKE 1 TABLET BY MOUTH THREE TIMES A DAY NEEDED 12/10 completed Not Available Not Available Not Available nystatin active Not Available Not Avai lable Not Available cholecalc iferol (vitamin D3) 50 mcg (2,000 unit) capsule TAKE 1 CAPSULE BY MOUTH EVERY DAY active Not Available Not Available No t Available Dexilant 60 mg capsule, delayed release TAKE 1 CAPSULE BY MOUTH EVERY DAY active Not Available Not Available No t Available Antifunga l (miconazo le) 2 % topical powder 12/10 completed Medicati on ID: [id number] D uration Value: 30 Brand Name: Anti-Fun gal Send Method: E-Prescr ibed Sub s Allowed: subs OK Speci al Instruct ion: APPLY TO ABDOMINA L FOLD 2 3 TIMES A DAY Medi cationGe nericNam e: Anti-Fun gal Medi cation ID: [id number] D uration Value: 30 Brand Name: Anti-Fun gal Send Method: E-Prescr ibed Sub s Allowed: subs OK Speci al Instruct ion: APPLY TO ABDOMINA L FOLD 2 3 TIMES A DAY Medi cationGe nericNam e: Anti-Fun gal Not Available Not Available Not Available Vitals Date Recorded Body height Body mass index (BMI) Body weight Provider Name and Address Organization Details Last Updated DateTime 12/11/2023 165.1 cm 31.6 kg/m2 75400.55 g Lotus Block [place] - [facility] 12/11/2023 10:30:38 Social History None recorded. Functional Status None recorded. Mental Status None recorded. Family History Nothing Reported. Medical History Condition Response Hyperlipidemia Y Anxiety Y Depression Y GERD/Reflux Y High Cholesterol Y Gynecological HistoryNo gynecological history recorded. Obstetrics History GPAL:G 0 P 0 0 0 0 Past Encounters Encounter ID Performer Location Encounter Start Date Encounter Closed Date Diagnosis/Indication Diagnosis SNOMED-CT Code Diagnosis ICD10 Code Diagnosis Note [id number] JC LEWIS MD [facility] [address] [address] 12/11/2023 09:43:39 12/11/2023 10:40:44 Sensorineural hearing loss of bilateral ears [id number] H90.3 78-year-ol d female presents today for evaluation of her hearing. She has noted subjective decline since her last visit here and indeed she does have a fairly significan t loss noted on exam. She is ready to proceed with hearing aids. Medical clearance was given. Audiologic al evaluation results:Ri ght ear:{{Norm al auditory thresholds Normal sloping at Normal sloping at 500 hz to a mild to moderately -severe#}} {{ SNHL* C HL MHL }} with {{excellen t good stephania r* poor no t measurable }} speech discrimina tion.Left ear:{{Norm al auditory thresholds Normal sloping at Normal sloping at 500 hz to a mild to severe#}} {{ SNHL* C HL MHL }} with {{excellen t good stephania r* poor no t measurable }} speech discrimina tion. Tympanomet ry:Right Ear:{{Type A* Type As Type Ad Type C Type C, shallow & rounded Ty pe B Type B with large volume Cou ld not maintain a hermetic seal}}Left Ear:{{Type A Type As Type Ad* Type C Type C, shallow & rounded Ty pe B Type B with large volume Cou ld not maintain a hermetic seal}} Health Concerns Section Related Observation LastModified by Organization Detai ls LastModified Time None Recorded Concern Status LastModified by Organization Details LastModified Time None Recorded Advance Directives Directive None Recorded Payers Insurance Date Sequence Insurance Name Policy Number Policy Hicks Covered Member ID Hicks Member ID Guarantor Name 07/11/2024 1 [employer] (MEDICARE REPLACEMENT PPO) [id number] Rachelle Markham [id number] Margaret Markham Notes Date Note Type Note Provider Name and Address Organization Details Recorded Time 12/11/2023 text/html 78 yo F for hearing loss. Having trouble in conversation. No tinnitus or dizziness. Has tension headaches. JC LEWIS MD [address] [place] [address], [phone] - [facility] 12/11/2023 10:42:56 OBGyn Episode No OBEpisode recorded.
--- OUTSIDE RECORDS SUMMARY | 2024-11-13 09:50 | XMS_ITS | Clinical Summary ---
Author Organization [facility] Address [address] [place] [address] Care Team Providers Care Supervisor Core Shop Name Role Phone Gus Giles MD Primary Care Provider [phone] Allergies Active Allergy Reactions Criticality Noted Date Comments Naproxen Rash/Dermatitis Low 11/28/2018 Propoxyphene Swelling Medium 11/28/2018 Nsaids Rash/Dermatitis Low 05/02/2019 Simvastatin Swelling Medium 11/28/2018 Medications ALPRAZolam (XANAX) 0.5 MG tablet Take 0.5 mg by mouth daily as needed for anxiety. Take day of surgery if needed Active dexlansoprazole (DEXILANT) 60 MG capsule Take 60 mg by mouth nightly. Take night before surgery Active sertraline (ZOLOFT) 100 MG tablet Take 100 mg by mouth nightly. Take night before surgery Active Acetaminophen-C affeine 500-65 MG Tab Take 1 tablet by mouth as needed. Do not take day of surgery. Active Cholecalciferol (VITAMIN D3) 25 MCG (1000 UT) Cap Take by mouth. Activ e CINNAMON PO Take by mouth. Act juno sodium-potassiu m-magnesium sulfates (Suprep Bowel Prep Kit) 17.5-3.13-1.6 GM/177ML Solution solutionIndicat ions:History of colon polyps Follow directions provided by physician's office. 354 mL Active Active Problems Problem Noted Date Diagnosed Date Diverticulosis 10/11/2024 Family history of colonic polyps 10/11/2024 History of colon polyps 05/02/2019 Dysphagia 05/02/2019 Gastroesophageal reflux disease 05/02/2019 Arthritis of right knee 12/13/2018 Encounters Date Type Department Care Team Description 10/11/2024 2:00 PM EDT Consult [address] [address] John Mccurdy MD Gastroesophageal reflux disease with esophagitis without hemorrhage (Primary Dx); Dysphagia, unspecified type; Diverticulosis; History of colon polyps; Family history of colonic polyps from Last 3 Months Family History Medical History Relation Name Comments [...] Smoking Tobacco: Former Cigarettes Smokeless Tobacco: Never Tobacco Cessation:Counseling Given: Not Answered Comments:quit 40+ years ago Alcohol Use Standard Drinks/Week Comments Not Currently 0 (1 standard drink = 0.6 oz pur e alcohol) less than monthly Comments Unknown Sex and Gender Information Value Date Recorded Sex Assigned at Female 10/11/2024 2:59 PM EDT Legal Sex Female 1:49 PM EDT Gender Identity Female 10/11/2024 2:59 PM EDT Sexual Orientation Heterosexual (straight) 10/11 2:59 PM EDT Last Filed Vital Signs Vital Sign Reading Time Taken Comments Blood Pressure 124/68 10/11/2024 2:12 PM EDT Pulse 67 10/11/2024 2:12 PM EDT Temperature 36.4 ??C (97.5 ??F) 07/14/2023 5:33 PM ES T Respiratory Rate 18 12/14/2018 1:24 PM EDT Oxygen Saturation 95% 07/14/2023 5:33 PM EST Inhaled Oxygen Concentration - - Weight 86.6 kg (191 lb) 10/11/2024 2:12 PM EDT Height 162.6 cm (5' 4 ) 10/11/2024 2:12 PM EDT Body Mass Index 32.79 10/11/2024 2:12 PM EDT Plan of Treatment Upcoming Encounters Date Type Department Care Team (Late st Contact Info) Description 12/18/2024 10:30 AM EDT Hospital Encounter [facility] [address] [place] [phone] [facility] [address] [place] [phone] 12/18/2024 10:30 AM EDT - 12/18/2024 11:15 AM EDT Surgery [facility] ENDO PROC [facility] [address] [place] [phone] John Mccurdy MD [address] [address] COLONOSCOPY Scheduled Procedures Name Priority Associated Diagnoses Date/Ti me COLONOSCOPY Gastroesophageal reflux disease with esophagitis without hemorrhage Dysphagia, unspecified type History of colon polyps 12/18/2024 10:30 AM EDT ENDOSCOPY UPPER Gastroesophageal reflux disease with esophagitis without hemorrhage Dysphagia, unspecified type History of colon polyps 12/18/2024 10:30 AM EDT Health Maintenance Due Date Last Done Comments Hepatitis C Virus Screening 1945 DTaP/Tdap/Td Vaccines (1 - Tdap) 1965 Pneumococcal Vaccines 50+ (1 of 1 - PCV) 1996 Zoster (Shingles) Vaccine (1 of 2) 1996 DXA Bone Density (Females,Ages 65 and older) 2011 RSV Vaccine 60 years and older and Patients (1 - 1-dose 75+ series) 2021 COVID-19 Vaccine ( season) 2024 04/25/2024, 04/16/2023, 03/26/2022, Additional history exists Influenza Vaccine 01/31/2025 03/22/2024, , 04/13/2023, Additional history exists Hemoglobin A1C Discontinued 03/26/2024, 01/01, 07/05/2022, Additional history exists Hepatitis B Vaccines Aged Out No long er eligible based on patient's age to complete this topic Medical Devices Implanted Type Area Medical Assisting Instructor Device Identifier Shelf Expiration Date Model / Serial / Lot [id number] Cement [employer] R 40gm Grn - [id number] Implanted:Qty: 2 on 12/13/2018 by Deandre Arndt MD at [facility] Cement Right: Knee [employer] 11/30/2021 [id number] / / [id number] Restrictor Bncmnt 25mm Perez 16-21mm Hip Femoral Plug Sterl - [id number] Implanted:Qty: 1 on 12/13/2018 by Deandre Arndt MD at [facility] Joint Prosthesis Right: Knee [employer] END[employer] - D 08/21/2028 [id number] / / [id number] Component Patellar Std 9mm 35mm Nxgn Uhmwpe Knee Sterl Blue - [id number] Implanted:Qty: 1 on 12/13/2018 by Deandre Arndt MD at [facility] Joint Prosthesis Right: Knee [employer] [id number] 08/02/2026 [id number] / / [id number] Component Femoral 6 Std Knee Right Crcte Rtn Cmnt Persona - [id number] Implanted:Qty: 1 on 12/13/2018 by Deandre Arndt MD at [facility] Joint Prosthesis Right: Knee [employer] [id number] 05/02/2028 [id number] / / [id number] Insert Articular 3-11 E-F 10mm Knee Right Crcte Rtn Polyethe - [id number] Implanted:Qty: 1 on 12/13/2018 by Deandre Arndt MD at [facility] Joint Prosthesis Right: Knee [employer] [id number] 08/30/2024 [id number] / / [id number] Baseplate Tibial Persona Ntr Tibia 5d E Knee Right Stem - [id number] Implanted:Qty: 1 on 12/13/2018 by Deandre Arndt MD at [facility] Joint Prosthesis Right: Knee [employer] [id number] 08/30/2028 [id number] / / [id number] [place] [address] MEDICAID [place] [facility] [place] [address] [employer] [place] [phone] [facility] MEDICARE MEDICAID [place] [facility] Advance Directives * Full Code (Latest Code Status on File) Date Activated Date Inactivated Comments 12/13/2018 11:58 AM * Full Code Date Activated Date Inactivated Comments 12/13/2018 6:45 AM 12/13/2018 11:58 AM Care Teams Supervisor Core Shop Relationship Specialty Start Date End Date Gus Giles MD [address] [facility] [place] [address] PCP - General Family Medicine 06/20/24
--- OUTSIDE RECORDS SUMMARY | 2024-11-13 09:50 | XMS_ITS | Encounter Summary ---
Author Organization [facility] Address [address] [place] [address] Care Team Providers Care Wrap Turner Name Role Phone Kevon Estrella MD Primary Care Provider Unavailable Pcp, No Primary Care Provider UnavailGus Malhotra MD Primary Care Provider [phone] Encounter Details Date Type Department Care Team (Late st Contact Info) Description 11/15/2019 Scanned Document [facility] [address] [place] [address] Monica Spencer MD 1 [place] [address] Social History Tobacco Use Types Packs/Day Years [...] Orientation Heterosexual (straight) 10/11 2:59 PM EDT COVID-19 Exposure Response Date Recorded In the [...] Hospital Encounter [facility] ENDO PROC [facility] [address] [place] [address] [facility] [address] [place] [address] 12/18/2024 10:30 AM EDT - 12/18/2024 11:15 AM EDT Surgery [facility] END[facility] PROC [facility] [address] [place] [phone] John Mccurdy MD 113 [facility] [address] [place] [address] COLONOSCOPY Scheduled Procedures Name Priority Associated Diagnoses Date/Ti me COLONOSCOPY Gastroesophageal reflux disease with esophagitis without hemorrhage Dysphagia, unspecified type History of colon polyps 12/18/2024 10:30 AM EDT ENDOSCOPY UPPER Gastroesophageal reflux disease with esophagitis without hemorrhage Dysphagia, unspecified type History of colon polyps 12/18/2024 10:30 AM EDT documented as of this encounter Procedures Procedure Name Priority Date/Time Associated Diagnosis Comments PATHOLOGY REPORT 11/15/2019 12:0 0 AM EDT documented in this encounter Results * (REPORT) PATHOLOGY REPORT (11/15/2019 12:00 AM EDT) Monica Spencer MD PATHOLOGY/CYTOLOGY ORD ERABLES Final Result documented in this encounter Visit Diagnoses Not on filedocumented in this encounter Care Teams Wrap Turner Relationship Specialty Start Date End Date Kevon Estrella MD PCP - General Internal Medicine 11/28/18 02/06/23 Pcp, No PCP - General General Medicine 07/14/23 06/19/24 Gus Giles MD [address] [facility] [place] [address] PCP - General Family Medicine 06/20/24 documented as of this encounter
--- OUTSIDE RECORDS SUMMARY | 2024-11-13 09:50 | XMS_ITS | Encounter Summary ---
Author Organization [facility] Address [address] [place] [address] Care Team Providers Care Marble Rubber Name Role Phone Kevon Estrella MD Primary Care Provider Unavailable Pcp, No Primary Care Provider UnavailGus Malhotra MD Primary Care Provider [phone] Encounter Details Date Type Department Care Team (Late st Contact Info) Description 11/15/[address] [facility] 10 [facility] [address] [place] [phone] Giovanna Olmstead, WARDROBE CONSULTANT [address] [place] [address] Social History Tobacco Use Types Packs/Day Years [...] Hospital Encounter [facility] ENDO PROC [facility] [address] [place] [phone] [facility] [address] [place] [address] 12/18/2024 10:30 AM EDT - 12/18/2024 11:15 AM EDT Surgery [facility] END[facility] [address] [place] [phone] John Mccurdy MD [address] [place] [address] COLONOSCOPY Scheduled Procedures Name Priority Associated Diagnoses Date/Ti me COLONOSCOPY Gastroesophageal reflux disease with esophagitis without hemorrhage Dysphagia, unspecified type History of colon polyps 12/18/2024 10:30 AM EDT ENDOSCOPY UPPER Gastroesophageal reflux disease with esophagitis without hemorrhage Dysphagia, unspecified type History of colon polyps 12/18/2024 10:30 AM EDT documented as of this encounter Visit Diagnoses Not on filedocumented in this encounter Care Teams Marble Rubber Relationship Specialty Start Date End Date Kevon Estrella MD PCP - General Internal Medicine 11/28/18 02/06/23 Pcp, No PCP - General General Medicine 07/14/23 06/19/24 Gus Giles MD [address] [place] [address] PCP - General Family Medicine 06/20/24 documented as of this encounter
== END 2024-11-13 10:00 | disposition home or self-care (01) ==
LOC: HO.HMCH 09:18
DX: F41.9 Anxiety disorder, unspecified (principal); F32.A Depression, unspecified; K21.9 Gastro-esophageal reflux disease without esophagitis; E78.00 Pure hypercholesterolemia, unspecified; R73.02 Impaired glucose tolerance (oral); R68.2 Dry mouth, unspecified; R03.0 Elevated blood-pressure reading, without diagnosis of hypertension; B37.2 Candidiasis of skin and nail

== ENCOUNTER → 2024-11-13 09:18 | Outpatient (BNVA) | payer MEDICARE, SELFPAY | DX: R73.03 Prediabetes (principal); E78.00 Pure hypercholesterolemia, unspecified; F32.A Depression, unspecified; F41.9 Anxiety disorder, unspecified; K21.9 Gastro-esophageal reflux disease without esophagitis; R73.02 Impaired glucose tolerance (oral); R68.2 Dry mouth, unspecified; R03.0 Elevated blood-pressure reading, without diagnosis of hypertension; B37.2 Candidiasis of skin and nail | CPT/HCPCS: 96127; 99212 ==

== ENCOUNTER 2024-12-30 09:34 | Outpatient (REF) | payer MEDICARE, SELFPAY ==
--- OUTSIDE RECORDS SUMMARY | 2024-12-30 09:56 | XMS_ITS | Clinical Summary ---
Author Organization [facility] Address [address] [place] [address] Care Team Providers Care Claim Manager Name Role Phone Gus Giles MD Primary Care Provider [phone] Allergies Active Allergy Reactions Criticality Noted Date [...] 102 04/11/2024 2:40 PM EDT Temperature 36.6 C (97.8 F) 04/11/2024 2:40 PM EDT Respiratory Rate 16 04/11/2024 2:40 PM EDT [...] age to complete this topic Care Teams Claim Manager Relationship Specialty Start Date End Date Gus Giles MD PCP - General Family Medicine 02/03/20
[2024-12-30 09:57] VITALS: BP 157/76; PULSE 79; RESP 18; TEMP 36.1; O2SAT 98; BMI 32.6
== END 2024-12-30 09:35 | disposition home or self-care (01) ==
LOC: HO.MS 09:34
PROVIDERS: Visit Provider Ophthalmology
PROC: (CPT 66821; principal; 2024-12-30 12:00)
DX: H26.492 Other secondary cataract, left eye (principal)
CPT/HCPCS: 66821

== ENCOUNTER 2025-01-18 14:23 | Emergency (ER) | payer MEDICARE, SELFPAY ==
--- OUTSIDE RECORDS SUMMARY | 2024-04-11 13:57 | XMS_ITS | Encounter Summary ---
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 04/14/24 Pre-Op Dx PRE-OP DIAGNOSIS: Carpal tunnel syndrome, right: Trigger finger Proposed Proc. PROPOSED PROCEDURE: Right endoscopic carpal tunnel release, right middle and ring trigger release PROCEDURE DATE: 05/17/2024 Surg/Endo SURGEON/ENDOSCOPIST: Dr. Latif Rodríguez [facility]: [facility] SURGEON/ENDOSCOPIST Anesthetic Preference: MAC Here for prrop [...] ? ECG 12 lead Gus Giles MD [address], [address] [place] [address] documented in this encounter Plan of Treatment Not on file documented as of this encounter Visit Diagnoses Not on filedocumented in this encounter Care Teams Contracts Analyst Relationship Specialty Start Date End Date Gus Giles MD PCP - General 02/03/20 documented as of this encounter
--- OUTSIDE RECORDS SUMMARY | 2024-04-11 13:57 | XMS_ITS | Encounter Summary ---
Author Organization [employer] Address [address] [place] [address] Care Team Providers Care Java User Interface Developer Name Role Phone Gus Giles MD Primary Care Provider [phone] Encounter Details Date Type Department Care Team (Late st Contact Info) Description 04/11/2024 1:57 PM EDT Hospital Encounter TH H[facility]OR[facility] ENCOUNTER[facility] ONLY Gus Giles MD [address] [place] [address] Social History Tobacco Use Types Packs/Day Years [...] Giles MD at 04/11/2024 2:00 PM Author: uGs Giles MD Service: -- Author Type: Physician Filed: 04/14/2024 9:21 PM Encounter Date: 04/11/2024 Status: Signed 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 04/14/24 Pre-Op Dx PRE-OP DIAGNOSIS: Carpal tunnel syndrome, right: Trigger finger Proposed Proc. PROPOSED PROCEDURE: Right endoscopic carpal tunnel release, right middle and ring trigger release PROCEDURE DATE: 05/17/2024 Surg/Endo SURGEON/ENDOSCOPIST: Dr. Latif Rodríguez [facility]: [facility] SURGEON/ENDOSCOPIST Anesthetic Preference: MAC Here for prrop [...] ? ECG 12 lead Gus Giles MD [address] [place] [address] documented in this encounter Plan of Treatment Not on file documented as of this encounter Visit Diagnoses Not on filedocumented in this encounter Care Teams Java User Interface Developer Relationship Specialty Start Date End Date Gus Giles MD PCP - General 02/03/20 documented as of this encounter
--- NOTE | ~2025-01-18 | CT_ITS ---
CLINICAL HISTORY: diffuse abdominal pain, diarrhea CT abdomen and pelvis with IV contrast. COMPARISON: None provided. FINDINGS: Partially visualized lung bases are unremarkable. No focal hepatic lesion. Normal gallbladder. Normal spleen. Normal pancreas. Normal adrenal glands. Symmetric renal enhancement. No hydronephrosis. Nonobstructing 3 mm right renal calculus. Surgical clips present along the diaphragmatic hiatus. Normal appendix. Moderate distal colonic diverticulosis without evidence of diverticulitis. No bowel obstruction. No mesenteric or retroperitoneal lymphadenopathy. Mild aortoiliac atherosclerotic vascular calcifications. Normal appearance of the urinary bladder. No adnexal mass. Grade 1 anterolisthesis of L3 on L4, degenerative. Moderate spondylosis. No acute fracture or suspicious bone lesion. IMPRESSION: 1. No cause for patient's symptoms identified. No evidence of appendicitis or diverticulitis. No bowel obstruction. This document has been electronically signed by: João Santos MD on 01/18/2025 17:15:55
[2025-01-18 14:27] VITALS: BP 156/75; PULSE 93; RESP 16; TEMP 36.4; O2SAT 97; BMI 33.3
--- NOTE | 2025-01-18 14:27 | ED.GENADULT ---
HPI - General Adult General Chief complaint: Nausea/Vomiting/Diarrhea Stated complaint: diarrhea nausea Time Seen by Provider: 01/18/25 14:54 Source: patient and RN notes reviewed Mode of arrival: ambulatory Limitations: no limitations History of Present Illness ED Provider: Annette Klein PA-C HPI narrative: This is a 79 year old female, with a past medical history of depression, anxiety, GERD, hypercholesterolemia, who presents emergency department for evaluation of nausea, diarrhea, and abdominal pain. Patient states that her symptoms started approximately 2 weeks ago. She states that she has been having approximately 5 episodes of nonbloody diarrhea. Also having nausea. Patient also reports that she has had intermittent chest pain and shortness for breath, she does not have this at the current moment. She states that she attributes this to her anxiety that she typically has. She denies any fevers, chills, body aches, urinary symptoms, vomiting or constipation. She did have a bleeding ulcer repair in her early 20s, no other abdominal surgeries. No other complaints or concerns at this time. MD complaint: Abdominal pain, nausea Onset (ago): day(s) Relieving factors: none Exacerbating factors: none Associated symptoms: nausea/vomiting Treatments prior to arrival: none Related Data Home Medications ?Medication ?Instructions ?Recorded ?Confirmed B6 1.7 mg-folic 400 mcg-B12 2.4 cap PO 09/26/24 11/13/24 [id number] oral capsule (Neuriva Plus Brain Performance) cholecalciferol (vitamin D3) 125 125 mcg PO DAILY 11/13/24 11/13/24 mcg (5,000 unit) capsule Previous Rx's ?Medication ?Instructions ?Recorded clotrimazole 1 % topical cream 1 appl topical BID #30 grams 09/26/24 dexlansoprazole 60 mg 60 mg PO DAILY #90 caps 09/26/24 capsule,biphase delayed release (Dexilant) nystatin 100,000 unit/gram topical 1 appl topical DAILY #30 grams 09/26/24 powder sertraline 50 mg tablet 50 mg PO DAILY #90 tabs 09/26/24 alprazolam 0.5 mg tablet 0.5 mg PO DAILY PRN anxiety #20 12/19/24 tabs ondansetron 4 mg disintegrating 4 mg PO Q6H PRN nausea and 01/18/25 tablet vomiting #12 tabs Allergies Allergy/AdvReac Type Severity Reaction Status Date / Time naproxen (NAPROXEN) Allergy Intermediate SWELLING, Verified 01/18/25 14:29 RASH, rash, swelling rosuvastatin (From CRESTOR) Allergy Intermediate MUSCLE ACHE Verified 01/18/25 14:29 simvastatin (SIMVASTATIN) Allergy Intermediate ITCHING, Verified 01/18/25 14:29 joint pain, cough Darvon Allergy Unknown rash, Verified 01/18/25 14:29 swelling oxybutynin Allergy Unknown itching Verified 01/18/25 14:29 From DARVON Allergy Intermediate HIVES,SWELL Uncoded 11/13/24 09:35 ING Review of Systems Review of Systems: Yes all other systems are reviewed and are negative Constitutional: Constitutional: Reports as per [facility] Past Medical History Attestation statement: The following information was validated with the patient. Surgical History History of knee replacement H/O hand surgery Family History Family History Father Prostate cancer Mother Breast cancer Brother FH: mental illness Social History Social History Housing: House Housing Other:: Downstairs unit in son's home Alcohol intake: current Alcohol intake frequency: holidays/special occasions only Alcohol type: wine Patient Tobacco Use Status: Former Tobacco user Years Smoked: quit over 40 years e-Cigarette/Vaping Use: Never Used Second Hand Smoke Exposure: Yes service: No Current occupational status: retired Cognitive needs: No Hearing needs: Yes (Hearing aids) Vision needs: Yes (Glasses) Physical Exam ED Vital Signs: Vital Signs - 24 hr 01/18/25 14:27 01/18/25 17:08 01/18/25 18:29 Temperature 97.6 F 97.8 F 97.8 F Pulse Rate 93 76 72 Respiratory Rate 16 16 16 Blood Pressure 156/75 H 141/69 H 142/66 H Pulse Oximetry 97 98 95 Oxygen Delivery Method Room Air Room Air Room Air BMI result Body Mass Index 33.3 Const General: cooperative, comfortable and no acute distress Orientation/consciousness: patient oriented x3 Limitations: no limitations HENMT Head: Yes normal to inspection, Yes normocephalic and Yes atraumatic Ears: hearing grossly normal bilaterally General nose exam: Normal external nose present Face and sinus: Yes normal facial exam Mouth: Normal oral and palatal mucosa present, oropharynx normal and moist mucous membranes Throat: Yes posterior oropharynx normal Eyes General: appearance normal, both eyes and all related structures Eyelids: Yes eyelids normal Conjunctivae: conjunctivae normal Sclerae: sclerae normal Pupils: Equal, round and reactive pupils present EOM: EOMs intact bilaterally Neck Neck: Yes normal visual inspection, Yes full ROM and Yes no lymphadenopathy Lymphatic: no lymphadenopathy noted Chest Chest palpation & inspection: normal inspection of the chest Resp Effort & Inspection: normal respiratory effort and able to speak in complete sentences Auscultation: clear to auscultation bilaterally, no crackles, no rales, no rhonchi and no wheezes Cardio Rate: regular rate Rhythm: regular rhythm Heart sounds: S1 normal heart sound present and S2 normal heart sound present GI Other: Abdomen is soft with diffuse abdominal tenderness, more pronounced in the epigastrium and left upper quadrant. No rebound or guarding. Inspection: Yes normal to inspection Skin General skin exam: no rashes or lesions noted Trauma: no lacerations or abrasions Wounds: no wounds Neuro General: patient oriented x3 and moves all extremities Cranial nerves: Yes Equal, round and reactive pupils present Extrem General: Yes normal to inspection Right upper extremity: normal to inspection Left upper extremity: normal to inspection Right lower extremity: normal to inspection Left lower extremity: normal to inspection Course Course Course Narrative: RME, this is a rapid medical exam performed by Dwayne Hopkins please refer to primary provider for complete H&P- 79-year-old male presents for evaluation of nausea, vomiting and diarrhea for 2 weeks. Denies any recent antibiotics use. Plan for labs including stool studies. Medications Administered Discontinued Medications Generic Name Dose Route Start Last Admin Trade Name Freq PRN Reason Stop Dose Admin Sodium Chloride 1,000 mls @ 999 mls/hr 01/18/25 15:19 01/18/25 16:56 Ns IV 01/18/25 16:19 Infused .Q1H1M ONE Infusion Iohexol 100 ml 01/18/25 15:39 01/18/25 15:40 Iohexol 350 Mg/Ml 100 Ml Infus..Btl IV 01/18/25 15:40 85 ml ONCE ONE Administration Ondansetron HCl 4 mg 01/18/25 15:18 07/19/25 15:26 Ondansetron Hcl 4 Mg/2 Ml Vial IVPUSH 01/18/25 15:19 4 mg ONCE ONE Administration Medical Decision Making Medical Decision Making [facility] Narrative: This is a 79 year old female, with a past medical history of depression, anxiety, GERD, hypercholesterolemia, who presents emergency department for evaluation of nausea, diarrhea, and abdominal pain. On arrival, blood pressure 156/75, all other vital signs within normal limits. She is speaking full sentences under no acute distress. Abdomen is soft with diffuse tenderness throughout, more pronounced in the epigastrium and left upper quadrant, no rebound or guarding. Differential diagnoses include acute diverticulitis, diverticulosis, atypical ACS, electrolyte derangement, C diff, infectious diarrhea. Labs were obtained prior to my evaluation, she was no leukocytosis, chemistry revealing no significant electrolyte derangement. Plan: Labs, UA, CT abdomen and pelvis, IV antiemetics and IV fluids. 1728 - ct scan returns, no acute findings. Patient re-evaluated, feeling slightly improved. Urine with no acute findings. Blood work reassuring. She was not been able to provide a stool sample as of yet. Given that patient was not had any fevers or chills, non bloody diarrhea, patient may benefit from several days of Imodium and sticking to the brat diet. We will refer to GI specialty for further workup. Given outpatient lab rec for patient to provide stool sample if needed. Patient feeling better overall, patient stable for discharge. Differential Diagnosis Differential Diagnoses: The differential diagnosis associated with the presentation includes See above Lab Data [facility] Lab Attestation statement: I reviewed the patient's lab results. See MDM and course 01/18/25 14:37 01/18/25 14:37 Labs: Lab Results 01/18/25 01/18/25 01/18/25 Range/Units 14:37 15:06 15:15 WBC 7.4 (4.8-10.8) X10*3/uL RBC 4.93 (4.20-5.50) X10*6/uL Hgb 11.9 L (12.0-16.0) g/dl Hct 38.5 (37.0-47.0) % MCV 78.1 L (80.0-98.0) fL MCH 24.1 L (27.0-33.0) pg MCHC 30.9 L (31.0-35.0) g/dl RDW 17.7 H (11.0-16.0) % Plt Count 301 (160-400) X10*3/uL MPV 11.0 (9.4-12.3) fL Immature Gran % (Auto) 0.3 (0.0-0.4) % Neut % (Auto) 64.0 (45-73) % Lymph % (Auto) 26.6 (20-40) % Dawson % (Auto) 6.7 (2-11) % Eos % (Auto) 1.5 (0-4) % Baso % (Auto) 0.9 (0-2) % Lymph # (Auto) 2.0 (1.2-4.9) X10*3/uL Dawson # (Auto) 0.5 (0.1-1.2) X10*3/uL Eos # (Auto) 0.1 (0.0-0.4) X10*3/uL Baso # (Auto) 0.1 (0.0-0.2) X10*3/uL Abs Immat Gran (auto) 0.02 (0.00-0.03) X10*3/uL Absolute Neuts (auto) 4.8 (2.0-8.3) x10*3/uL Absolute Nucleated RBC 0.000 (0.0-0.012) X10*3/uL Nucleated RBC % (auto) 0.0 (0.0-0.2) /100WBC Sodium 143 (135-145) mmol/L Potassium 4.8 (3.3-5.1) mmol/L Chloride 109 H (96-108) mmol/L Carbon Dioxide 23 (22-29) mmol/L Anion Gap 16 (12-20) BUN 9 (9-16) mg/dL Creatinine 0.84 (0.5-1.4) mg/dL Estim Creat Clear Calc 61.4 Estimated GFR > 60 Random Glucose 149 H (60-115) mg/dL Calcium 9.6 (8.4-10.2) mg/dL Magnesium 2.3 (1.6-2.6) mg/dL Total Bilirubin 0.4 (0.0-1.0) mg/dL AST 23 (5-31) U/L ALT 17 (0-31) U/L Alkaline Phosphatase 96 (39-117) U/L Troponin I High Sens 3.2 (<3.5-17.0) ng/L Total Protein 7.4 (6.5-8.0) g/dL Albumin 4.5 (3.5-5.0) g/dL Lipase 19 (8-78) U/L Urine Color Yellow Urine Appearance Clear Urine pH 6.0 (5.0-9.0) Ur Specific [place] <= 1.005 (1.005-1.025) Urine Protein Negative (Neg-Trace) mg/dL Urine Glucose (UA) Negative (Negative) mg/dL Urine Ketones Negative (Negative) mg/dL Urine Blood Negative (Negative) Urine Nitrite Negative (Negative) Ur Leukocyte Esterase Negative (Negative) Urine RBC 0-2 (0-2) /HPF Urine WBC 0-5 (0-5) /HPF Ur Squamous Epith Cells 0-2 (0-2) /HPF Urine Bacteria None Seen (None Seen) Hyaline Casts 0-2 (0-2) /LPF Stool Occult Blood NEGATIVE (NEGATIVE) Independent Interpretation I performed an independent interpretation of an: EKG Interpretation: EKG normal sinus rhythm at a ventricular rate of 77 beats per minute, [place] interval 194, QT QTC 412/466, no STEMI. Radiology Impression Discussion of test interpretation with radiology: I have reviewed the radiologist's reading. Radiologist Impression: FINDINGS: Partially visualized lung bases are unremarkable. No focal hepatic lesion. Normal gallbladder. Normal spleen. Normal pancreas. Normal adrenal glands. Symmetric renal enhancement. No hydronephrosis. Nonobstructing 3 mm right renal calculus. Surgical clips present along the diaphragmatic hiatus. Normal appendix. Moderate distal colonic diverticulosis without evidence of diverticulitis. No bowel obstruction. No mesenteric or retroperitoneal lymphadenopathy. Mild aortoiliac atherosclerotic vascular calcifications. Normal appearance of the urinary bladder. No adnexal mass. Grade 1 anterolisthesis of L3 on L4, degenerative. Moderate spondylosis. No acute fracture or suspicious bone lesion. IMPRESSION: 1. No cause for patient's symptoms identified. No evidence of appendicitis or diverticulitis. No bowel obstruction. This document has been electronically signed by: João Santos MD on 01/18/2025 17:15:55 Critical Care Time Critical Care Time Critical Care Time: Yes Total Critical Care Time: 35 Attestation: I have personally provided critical care time exclusive of time spent on separately billable procedures. Time includes review of lab data, radiology results, discussion with consultants, and monitoring for potential decompensation. Intervention performed as documented. Discharge Plan Discharge Clinical Impression: Diarrhea Patient Disposition: Home, Self-Care Instructions: Acute Diarrhea (ED) Additional Instructions: You were seen in the emergency department due to ongoing nausea and diarrhea. Your blood work was reassuring. Your CT does not reveal any reason for your symptoms. I am recommending for you to take Immodium and sticking to a bland diet over the next several days. Sticking to the BRAT diet (Bananas, rice, apple sauce, and toast) for several days may help with your diarrhea. You may also pickling grader Imodium, this can help with your diarrhea. Take only several doses of this as this can cause constipation and other problems. If any new or worsening symptoms occur including but not limited to severe abdominal pain, high fevers, chills, shortness of breath, bloody diarrhea, please seek emergent care. I am also referring you to GI, call to make an appointment. I am also giving you a lab requisition form if you want to provide a stool sample to her labs. This does take several days for the results to return. As mentioned, a lot of the viruses are treated the same, with plenty of fluids, plenty of rest, and sticking to a bland diet. We are also testing you for C diff, you do not have any risk factors but this is 1 of the bacteria that does require treatment. We will call you if this is positive. You may also call the emergency room for your test results. Take Zofran as needed for nausea. Please follow-up with your primary care physician regarding this visit. Prescriptions: New ondansetron 4 mg tablet,disintegrating 4 mg PO Q6H PRN (Reason: nausea and vomiting) Qty: 12 0RF No Action alprazolam 0.5 mg tablet 0.5 mg PO DAILY PRN (Reason: anxiety) Qty: 20 0RF cholecalciferol (vitamin D3) 125 mcg (5,000 unit) capsule 125 mcg PO DAILY Neuriva Plus Brain Performance 1.7 mg-400 mcg- 2.4 mcg capsule PO sertraline 50 mg tablet 50 mg PO DAILY Qty: 90 1RF clotrimazole 1 % cream 1 appl topical BID Qty: 30 0RF nystatin 100,000 unit/gram powder 1 appl topical DAILY Qty: 30 0RF dexlansoprazole [Dexilant] 60 mg capsule,biphase delayed releas 60 mg PO DAILY Qty: 90 1RF [place] [facility] [place] [facility] [place]Provider Group, Gastroenterology] Interventions: ED Discharge Assessment Last Done: 01/18/25 18:29 Discharge Date/Time: 01/18/25 18:31 Print Language: Guamanian
[2025-01-18 14:51] LABS: MANUAL DIFF FLAG NO
[2025-01-18 14:53] LABS: Hematocrit 38.5 % (37.0-47.0); Hemoglobin 11.9 g/dl (12.0-16.0); Imm Gran Abs Auto 0.02 X10*3/uL (0.00-0.03); Imm Gran Pct Auto 0.3 % (0.0-0.4); Lymphocytes Absolute Auto 2.0 X10*3/uL (1.2-4.9); Mean Corpuscular HGB Conc 30.9 g/dl (31.0-35.0); Mean Corpuscular Hemoglobin 24.1 pg (27.0-33.0); Mean Corpuscular Volume 78.1 fL (80.0-98.0); NRBC Abs Auto 0.000 X10*3/uL (0.0-0.012); NRBC Pct Auto 0.0 /100WBC (0.0-0.2); Platelet Count 301 X10*3/uL (160-400); Red Blood Count 4.93 X10*6/uL (4.20-5.50); White Blood Count 7.4 X10*3/uL (4.8-10.8)
[2025-01-18 15:08] LABS: Alanine Aminotransferase 17 U/L (0-31); Albumin Level 4.5 g/dL (3.5-5.0); Alkaline Phosphatase 96 U/L (39-117); Anion Gap 16 (12-20); Aspartate Amino Transferase 23 U/L (5-31); Blood Urea Nitrogen 9 mg/dL (9-16); Calcium 9.6 mg/dL (8.4-10.2); Carbon Dioxide 23 mmol/L (22-29); Chloride 109 mmol/L (96-108); Creatinine Clr Calc Pharmacy 61.4; Estimated Glomerular Filt Rate > 60; Lipase 19 U/L (8-78); Magnesium 2.3 mg/dL (1.6-2.6); Potassium 4.8 mmol/L (3.3-5.1); Sodium 143 mmol/L (135-145); Total Protein 7.4 g/dL (6.5-8.0)
--- NOTE | 2025-01-18 15:19 | ECG_ITS ---
Test Reason : weakness Blood Pressure : */* mmHG Vent. Rate : 77 BPM Atrial Rate : 77 BPM P-R Int : 194 ms QRS Dur : 96 ms QT Int : 412 ms P-R-T Axes : 48 -5 29 degrees QTcB Int : 466 ms Normal sinus rhythm Minimal voltage criteria for LVH, may be normal variant ( Layo product ) Borderline ECG When compared with ECG of 19-Dec-2014 23:03, No significant change was found Referred By: Annette Klein Electronically Signed By: RUBIO CAMPBELL
[2025-01-18 15:20] LABS: OBS Int Ctl Valid YES; OBS Lot 0224; OBS1 NEGATIVE (NEGATIVE)
--- OUTSIDE RECORDS SUMMARY | 2025-01-18 15:21 | XMS_ITS | Encounter Summary ---
Author Organization [facility] Address [address] [place] [address] Care Team Providers Care Health Information Director Name Role Phone Genie Aguilar MD Primary Care Provider Unavailabl e Encounter Details Date Type Department Care Team Description 02/12/2020 Release of Information Medical Records [address] [place] [id number] Abstract, Provider Social History Tobacco Use Types Packs/Day Years Used Date Smoking Tobacco: Never Assessed Sex Assigned at Date Recorded Not on file documented as of this encounter Plan of Treatment Not on file documented as of this encounter Visit Diagnoses Not on filedocumented in this encounter Care Teams Health Information Director Relationship Specialty Start Date End Date Genie Aguilar MD PCP - General 07/03/10 documented as of this encounter
--- OUTSIDE RECORDS SUMMARY | 2025-01-18 15:21 | XMS_ITS | Encounter Summary ---
Author Organization [facility] Address [address] [place] [address] Care Team Providers Care Jet Handler Name Role Phone Kevon Estrella MD Primary Care Provider Unavailable Pcp, No Primary Care Provider Unavailabl e Gus Giles MD Primary Care Provider [phone] Genie Aguilar MD Primary Care Provider [phone] Encounter Details Date Type Department Care Team (Late st Contact Info) Description 11/15/[address] [facility] [address] [facility] [address] [place] [id number] Giovanna Olmstead, ASSEMBLER [employer]MENT [address] [place] [address] Social History Tobacco Use Types Packs/Day Years [...] on filedocumented in this encounter Care Teams Jet Handler Relationship Specialty Start Date End Date Kevon Estrella MD PCP - General Internal Medicine 11/28/18 02/06/23 Pcp, No PCP - General General Medicine 07/14/23 06/19/24 Gus Giles MD [address] [address] PCP - General Family Medicine 06/20/24 12/05/24 Genie Aguilar MD [address] [place] [address] [place] [id number] PCP - General Internal Medicine 12/06/24 documented as of this encounter
--- OUTSIDE RECORDS SUMMARY | 2025-01-18 15:21 | XMS_ITS ---
[facility] Name [facility] Organization Unknown Results Test Name/Text Value Interpretation Date Range Source TSH SerPl DL<=0.005 mIU/L-aCnc 2.87 uIU/mL Normal 03/26/2024 0.45 - 5.33 [facility] ALP SERPL-CCNC 91.0 U/L Normal 03/26/2024 34 - 104 [facility] Glomerular filtration rate/1.73 sq M. predicted 51.0 Below low normal 03/26/2024 60 - [facility] BUN SERPL MCNC 12.0 mg/dL Normal 03/26/2024 7 - 17 [facility] POTASSIUM SERPL SCNC 4.5 mmol/L Normal 03/26/2024 3.5 - 5 .1 [facility] ANION GAP SERPL SCNC 10.0 mmol/L Normal 03/26/2024 5 - 14 [facility] ALBUMIN SERPL BCG MCNC 4.3 g/dL Normal 03/26/2024 3.5 - 5 [facility] CREAT SERPL MCNC 1.1 mg/dL Above high normal 03/26/2024 0.5 - 1 [facility] BILIRUB SERPL MCNC 0.4 mg/dL Normal 03/26/2024 0.3 - 1 [facility] SODIUM SERPL SCNC 141.0 mmol/L Normal 03/26/2024 135 - 14 5 [facility] HCO3 SER SCNC 27.0 mmol/L Normal 03/26/2024 24 - 32 [facility] PROT SERPL MCNC 7.2 g/dL Normal 03/26/2024 6.4 - 8.5 [facility] ALT SERPL CCNC 12.0 U/L Normal 03/26/2024 7 - 52 [facility] GLUCOSE P FAST SERPL MCNC 149.0 mg/dL Above high normal 03/26/2024 70 - 99 [facility] AST SERPL CCNC 16.0 U/L Normal 03/26/2024 5 - [facility] 9.7 mg/dL Normal 03/26/2024 8.4 - 10.2 ON LICENSE OF [facility] CHLORIDE SERPL SCNC 104.0 mmol/L Normal 03/26/2024 98 - 1 07 ON LICENSE OF [facility] 25(OH)D3+25(OH)D2 SerPl IA-mCnc 34.0 ng/mL Normal 03/26/2024 30 - [facility] TRIGL [facility]-MCNC 107.0 mg/dL Normal 03/26/2024 - 150 [facility] CHOLEST SERPL-MCNC 226.0 mg/dL Above high normal 03/26/2024 0 - 200 ON LICENSE OF [facility] HDLC SERPL-MCNC 80.0 mg/dL Normal 03/26/2024 33 - 92 [facility] LDLc SerPl Calc-mCnc 125.0 mg/dL Normal 03/26/2024 50 - 1 30 ON LICENSE OF [facility] VIT B12 SER MCNC 250.0 pg/mL Normal 03/26/2024 180 - 914 ON LICENSE OF [facility] Hgb A1c MFr Bld HPLC 6.2 % Above high normal 03/27/2024 - 5.7 ON LICENSE OF [facility] NEUTROPHILS NO. BLD AUTO 4.6 K/uL Normal 03/26/2024 1.8 - 7.8 ON LICENSE OF [facility] MCHC RBC AUTO MCNC 32.7 g/dL Normal 03/26/2024 32 - 36 ON LICENSE OF [facility] HCT VFR BLD AUTO 38.0 % Normal 03/26/2024 37 - 47 [facility] HGB BLD MCNC 12.4 g/dL Below low normal 03/26/2024 12.5 - 16 ON LICENSE OF [facility] RDW RBC AUTO RTO 17.7 % Above high normal 03/26/2024 12.1 - 16.2 ON LICENSE OF [facility] PLATELET NO. BLD AUTO 269.0 K/uL Normal 03/26/2024 150 - 450 ON LICENSE OF [facility] LYMPHOCYTES NFR BLD AUTO 27.0 % Normal 03/26/2024 20 - 48 ON LICENSE OF [facility] PMV BLD AUTO 9.3 fL Normal 03/26/2024 7.4 - 11.4 [facility] NEUTROPHILS NFR BLD AUTO 61.3 % Normal 03/26/2024 44 - 74 [facility] DIFFERENTIAL TYPE AUTOMATED Normal 03/26/2024 C [facility] LYMPHOCYTES NO. BLD AUTO 2.0 K/uL Normal 03/26/2024 1 - 3.2 [facility] RBC NO. BLD AUTO 4.83 M/uL Normal 03/26/2024 4.2 - 5.4 [facility] MONOCYTES NFR BLD AUTO 6.8 % Normal 03/26/2024 2 - 12 [facility] EOSINOPHIL NO. BLD AUTO 0.3 K/uL Normal 03/26/2024 0 - 0 .5 [facility] MONOCYTES NO. BLD AUTO 0.5 K/uL Normal 03/26/2024 0 - 0. 8 [facility] MCV RBC AUTO 78.8 fL Normal 03/26/2024 78 - 100 [facility] MCH RBC QN AUTO 25.8 pg Normal 03/26/2024 25 - 33 [facility] WBC NO. BLD AUTO 7.5 K/uL Normal 03/26/2024 4 - 10.5 [facility] EOSINOPHIL NFR BLD AUTO 4.0 % Normal 03/26/2024 0 - 6 [facility] BASOPHILS NFR BLD AUTO 0.9 % Normal 03/26/2024 0 - 2 [facility] BASOPHILS IN BLOOD BY AUTOMATED COUNT 0.1 K/uL Normal 03/26/2024 0 - 0.2 [facility] History of Medication Use Medication Directions Dispensed Refills Start Date End Date Stat ALPRAZolam (XANAX) 0.5 MG tablet TAKE 1 TABLET BY MOUTH EVERY DAY NEEDED 01/29/2024 active oxyCODONE HCl 5 MG Oral Tablet oxyCODONE HCl 5 MG Oral Tablet QTY: 12 tablet Days: 4 Refills: 0 Written: 05/03/24 Patient Instructions: take one tab po three times a day as needed 09/09/2023 completed proMETHAZINE-dextrome thorphan (proMETHAZINE-DM) 6.25-15 MG/5ML syrup Take 5 mL by mouth 4 times daily (every 6 hours) as needed for cough. 07/14/2023 active sertraline (ZOLOFT) 100 MG tablet Take 2 tablets (200 mg total) by mouth daily. 04/13/2023 active Cholecalciferol (Vitamin D) 50 MCG (1999) CAPS Take 1 capsule by mouth daily. 02/17/2023 active sulfamethoxazole-trim ethoprim (BACTRIM DS,SEPTRA DS) 800-160 MG per tablet Take 1 tablet by mouth 2 (two) times a day. 11/03/2021 active Acetaminophen-Caffein e 500-65 MG Tab Take 1 tablet by mouth as needed. Do not take day of surgery. active dexlansoprazole (DEXILANT) 60 MG capsule Take 60 mg by mouth nightly. Take night before surgery active Allergies Allergen Reaction Severity Comment Documented Date Source Statu s NSAIDS RASH/DERMATITIS 05/02/2019 [facility] activ e SIMVASTATIN SWELLING 11/28/2018 [facility] R[facility] PROPOXYPHENE SWELLING [facility] Problems Problem Status Onset Date Problem Type Date of Resolution Source Hx of colonic polyp active 2019-05-02 ProblemAct [facility] Vitamin D deficiency active 2023-02-17 ProblemAct [facility] Class 1 obesity active 2023-04-[address] [facility] COVID-19 active 2023-07-06 ProblemAct [facility] Encounter for screening for lipoid disorders active EncounterDiagnosisAct [facility] Perianal dermatitis active 2020-09-22 ProblemAct [facility] Moderate persistent asthma, uncomplicated active EncounterDiagnosisAct [facility] Generalized anxiety disorder with panic attacks active 2020-02-03 [facility]Act [facility] Moderate episode of recurrent major depressive disorder active 2020-02-03 ProblemAct [facility] Asthma active 2021-07-01 ProblemAct [facility] Depression active 2020-03-12 ProblemAct [facility] Panic disorder (episodic paroxysmal anxiety) [facility] Prediabetes active 2020-09-22 [facility] Gastroesophageal reflux disease active 2020-02-03 ProblemAct [facility] Gastroesophageal reflux disease active 2019-05-02 ProblemAct [facility] History of colon polyps active 2019-05-02 ProblemAct [facility] Dysphagia active 2019-05-02 ProblemAct [facility] Family history of colonic polyps active 2024-10-11 ProblemAct [facility] Gastroesophageal reflux disease with esophagitis without hemorrhage active [facility]Diagnosis[facility] Diverticulosis active 2024-10-11 ProblemAct [facility] Arthritis of right knee active 2018-12-13 ProblemAct [facility] Acquired trigger finger of right ring finger (disorder) active 2024-04-03 ProblemAct [facility] Cyst of bursa (disorder) active 2023-08-28 ProblemAct [facility] Localized, primary osteoarthritis of the hand (disorder) active 2023-02-27 ProblemAct [facility] Carpal tunnel syndrome of right wrist (disorder) active 2023-11-13 ProblemAct [facility] Impingement syndrome of right shoulder region (disorder) active 2023-08-28 ProblemAct [facility] Acquired trigger finger of right index finger (disorder) active 2023-08-28 ProblemAct [facility] Localized, primary osteoarthritis of the hand (disorder) active 2022-05-11 ProblemAct [facility] Radial styloid tenosynovitis (disorder) active 2022-05-11 ProblemAct [facility] Immunizations Vaccine Date Source Lot Number Status Influenza Quad (Fluad) 0.5 mL >65Yrs (AIIV4) 04/13/2023 [facility] [id number] completed Tdap 02/06/2023 [facility] [id number] completed Covid-19 (Moderna 12+) Bivalent 50mcg/0.5mL 03/26/2022 [facility] [id number] completed Influenza Quad (High Dose Fl uzone) 0.7mL >65Yrs (HD-IIV4) 03/26/2022 [facility] [id number] completed Covid-19 (Moderna Booster 18+) 0.25mL dosage 05/18/2021 [facility] completed Influenza Quad (Afluria/Fluz one) 0.5mL >=6mon Vial (SD-IIV4) 04/09/2021 [facility] completed Covid-19 (Moderna 12+) 100mcg/0.5mL dosage 09/24/2020 [facility] completed Covid-19 (Moderna 12+) 100mcg/0.5mL dosage 08/27/2020 [facility] completed Tdap 01/04/2018 [facility] completed Encounters Encounter Type Encounter Reason Primary Diagnosis Location Date Ambulatory Follow-up Follow-up [facility] 10/11/2024 Ambulatory Carpal tunnel syndrome, right upper limb Carpal tunnel syndrome, right upper limb [facility] 05/29/2024 Ambulatory Carpal tunnel syndrome, right upper limb Carpal tunnel syndrome, right upper limb [facility] 05/08/2024 Ambulatory CREATE Carpal tunnel syndrome, right upper limb [facility], [facility] 05/03/2024 Ambulatory Carpal tunnel syndrome, right upper limb Carpal tunnel syndrome, right upper limb [facility] 05/03/2024 Ambulatory Trigger finger, right index finger Trigger finger, right index finger [facility] 04/03/2024 Ambulatory Major depressive disorder, recurrent, moderate Major depressive disorder, recurrent, moderate [facility] 03/26/2024 Ambulatory Encounter for screening for lipoid disorders Encounter for screening for lipoid disorders [facility] 03/26/2024 Ambulatory Trigger finger, right index [...] finger [facility] 09/08/2023 Ambulatory MODIFY [facility], [facility] 09/08/2023 Ambulatory Primary osteoarthritis, right hand Primary osteoarthritis, right hand [facility] 08/28/2023 Ambulatory COVID-19 COVID-19 [facility] 07/14/2023 Ambulatory Primary osteoarthritis, right hand Primary osteoarthritis, right hand [facility] 03/13/2023 Ambulatory Other synovitis and tenosynovitis, right hand Other synovitis and tenosynovitis, right hand [facility] 02/27/2023 Ambulatory Vitamin D defici ency, unspecified [facility] 01/25/2023 Ambulatory Unil primary osteoarth of first carpometacarp joint, r hand [facility] 07/13/2022 Ambulatory Unil primary osteoarth of first carpometacarp joint, r hand [facility] 07/08/2022 Ambulatory [facility] Ambulatory Pain in thoracic spine [facility] 11/03/2021 Care Team Organization Name Specialty Phone Email Start Date End Da te [facility] 10/15/2024 11/13/2024 [facility] Gus Giles Primary Care 06/20/2024 [facility] [place], [facility] 04/23/2024 [facility] [place], [facility] 08/30/2023 [facility] 07/14/2023 11/13/2024 [facility] 07/14/2023 07/14/2023 [facility] 01/27/2023 01/14/2025 [facility] 01/0101/25/2023 [facility] Marcos Latif Primary Care 05/11/2022 08/27/2024 [facility] Betito Estrella Primary Care 11/03/2021 11/13/2024 [facility] LARISSA ESTRELLA Primary Care 11/03/2021 11/03/2021
--- OUTSIDE RECORDS SUMMARY | 2025-01-18 15:21 | XMS_ITS | Clinical Summary ---
Author Organization [facility] Address [address] [place] [address] Care Team Providers Care Racking Machine Operator Name Role Phone Gus Giles MD Primary Care Provider [phone] Allergies Active Allergy Reactions Criticality Noted Date [...] 04/13/2024 04/13/2023, 03/30/2022, 03/30/2022, Additional history exists Influenza Vaccine (#1) 2025 , 04/13/2023, 03/26/2022, Additional history exists Osteoporosis Screening (DEXA Scan) 08/07/2025 08/07/2023 Breast Cancer Screening (Mammogram) 02/07/2026 02/08/2024, 08/07/2023, 02/01/2022 DTap / Tdap / Td (5 - Td or Tdap) 02/28/2034 02/29/2024, 02/06/2023, 01/14/2018, Additional history exists Hepatitis C Screening Completed 03/30/2022 RSV Adult > 60+ Yrs or Completed 03/22/2024 COVID-19 Vaccine Completed 04/25/2024, , 05/18/2021, Additional history exists Hepatitis B Vaccines Aged Out No long er eligible based on patient's age to complete this topic RSV Ped < 20 months Aged Out No longe r eligible based on patient's age to complete this topic Care Teams Racking Machine Operator Relationship Specialty Start Date End Date Gus Giles MD PCP - General Family Medicine 02/03/20
--- OUTSIDE RECORDS SUMMARY | 2025-01-18 15:21 | XMS_ITS | Data Portability ---
Author Organization [place] - [facility] Address [address] [address] Care Team Providers Care Library Circulation Technician Name Role Phone QING SANTOS Primary Care Provider Assessment No assessment recorded. [...] Sensorine ural hearing loss of bilateral ears [id number] Active 2019 Sensorine ural hearing loss, bilateral ; Note: Date Diagnosed : 03/20/2020 8:43 PM (H90.3) Not Available [facility] 4 02:31:40 Tinnitus of right ear [id number] 08 Active 2019 Tinnitus, right ear; Note: Date Diagnosed : 03/20/2020 8:43 PM (H93.11) Not Available [facility] 4 02:31:27 Problem Notes None recorded. Procedures Surgical History Date Name Laterality Status Provider Name and Address Organization Details Recorded Time 12/11/19 24 Air only Audio - 97282 completed SILAS PENA [address], [phone], [facility] 12/11/2023 10:21:25 12/11/19 24 Tympanometry - 76351 completed SILAS PENA [address], [address], [facility] 12/11/2023 10:21:59 12/11/19 24 SRT & Speech Recognition - 23309 completed SILAS PENA [address], [phone], [facility] 12/11/2023 10:21:37 total knee replacement completed JC LEWIS MD [address] [place] [address], [phone], [facility] 12/11/2023 10:33:06 Imaging Results None recorded. Procedure Notes None recorded. Medical Equipment None Reported. Allergies Allergen ID Allergen Name Allergen Category Reaction Reaction Severity Criticality Documentation Date Start Date Code Code System Note Provider Name and Address Organization Details Recorded Time 45796 propoxyph meron hydrochlo ride medicatio n hives Not available Not available 11/14/2023 41087 RxNorm React ion: skin rashe s, hives ;; Not Available [facility] 4 00:55:24 22062 methadone medicatio n other Not available Not available 11/14/2023 6813 RxNorm React ion: unkno wn, unspe cifie d;; Not Available [facility] 4 00:55:25 59443 naproxen medicatio n angioedem a Not available Not available 11/14/2023 7258 RxNorm React ion: swell ing of tongu e or mouth ;; Not Available [facility] 4 00:55:33 03575 tramadol Not available angioedem a Not available Not available 11/14/2023 74951 RxNorm React ion: swell ing of tongu e or mouth ;; Not Available [facility] 4 00:55:37 Medications Name Sig Start Date [...] topical cream 12/10 completed Medicati on ID: [id number] D uration Value: 10 Brand Name: nystatin Send Method: E-Prescr ibed Sub s Allowed: subs TROY Nix al Instruct ion: APPLY TO FOLDING AREAS TWICE A DAY FOR 7 TO 10 DAYS PER ERUPTION Medicat ionGener icName: nystatin Medicat ion ID: [id number] D uration Value: 10 Brand Name: nystatin Send Method: E-Prescr ibed Sub s Allowed: subs OK Speci al Instruct ion: APPLY TO FOLDING AREAS TWICE A DAY FOR 7 TO 10 DAYS PER ERUPTION Medicat ionGener icName: nystatin Not Available Not Available Not Available betametha sone dipropion ate 0.05 % topical ointment active Medicati on ID: [id number] D uration Value: 30 Brand Name: betameth [...] topical powder 12/10 completed Medicati on ID: [id number] D uration Value: 30 Brand Name: Anti-Fun gal Send Method: E-Prescr ibed Sub s Allowed: subs OK Speci al Instruct ion: APPLY TO ABDOMINA L FOLD 2 3 TIMES A DAY Medi cationGe nericNam e: Anti-Fun gal Medi cation ID: [id number] D uration Value: 30 Brand Name: Anti-Fun [...] Updated DateTime 12/11/2023 165.1 cm 31.6 kg/m2 88077.55 g Lotus Block [place] - [facility] 12/11/2023 10:30:38 Social History None recorded. Functional Status None recorded. Mental Status None recorded. Family History Nothing Reported. Medical History Condition Response Hyperlipidemia Y Anxiety Y Depression Y High Cholesterol Y GERD/Reflux Y Gynecological HistoryNo gynecological history recorded. Obstetrics History GPAL:G 0 P 0 0 0 0 Past Encounters Encounter ID Performer Location Encounter Start Date Encounter Closed Date Diagnosis/Indication Diagnosis SNOMED-CT Code Diagnosis ICD10 Code Diagnosis Note [id number] JC LEWIS MD [facility] [address] [phone] 12/11/2023 09:43:39 12/11/2023 10:40:44 Sensorineural hearing loss of bilateral ears [id number] H90.3 78-year-ol d female presents today for evaluation of her hearing. She has noted subjective decline since her last visit here and indeed she does have a fairly significan t loss noted on exam. She is ready to proceed with hearing aids. Medical clearance was given. Audiologic al evaluation results:Ri ght ear:Normal sloping at 500 hz to a mild to moderately -severe SNHL with fair speech discrimina tion.Left ear:Normal sloping at 500 hz to a mild to severe SNHL with fair speech discrimina tion. Tympanomet ry:Right Ear:Type ALeft Ear:Type Ad Health Concerns Section Related Observation LastModified by Organization Detai ls LastModified Time None Recorded Concern Status LastModified by Organization Details LastModified Time None Recorded Advance Directives Directive None Recorded Payers Insurance Date Sequence Insurance Name Policy Number Policy Hicks Covered Member ID Hicks Member ID Guarantor Name 07/11/2024 1 [employer] (MEDICARE REPLACEMENT /ADVANTAGE - PPO) [id number] Rachelle Markham [id number] Margaret Markham Notes Date Note Type Note Provider Name and Address Organization Details Recorded Time 12/11/2023 text/html 78 yo F for hearing loss. Having trouble in conversation. No tinnitus or dizziness. Has tension headaches. JC LEWIS MD [address] [place] [address], [id number] - [facility] 12/11/2023 10:42:56 OBGyn Episode No OBEpisode recorded.
[2025-01-18 15:22] LABS: Appearance Urine Clear; Glucose Urine UA Negative (Negative); PH 6.0 (5.0-9.0); Specific Gravity - Urine <= 1.005 (1.005-1.025)
[2025-01-18] MEDS: iohexoL 350 MG/ML 100 ML INFUS..BTL IV (15:40)
[2025-01-18 15:46] LABS: Troponin-I High Sensitivity 3.2 ng/L (<3.5-17.0)
--- NOTE | 2025-01-18 15:47 | PC.NURSE ---
IVF's infusing per orders; CT scan completed/results pending; pt unable to provide stool sample at this time; vss; family at bedside; pt denies pain at this time; will cont to monitor/tx per orders
[2025-01-18 17:08] VITALS: BP 141/69; PULSE 76; RESP 16; TEMP 36.6; O2SAT 98
[2025-01-18 18:29] VITALS: BP 142/66; PULSE 72; RESP 16; TEMP 36.6; O2SAT 95
--- OUTSIDE RECORDS SUMMARY | 2025-01-20 12:28 | XMS_ITS | Encounter Summary ---
Author Organization [facility] Address [address] [place] [address] Care Team Providers Care Canvas Baster Name Role Phone Kevon Estrella MD Primary Care Provider Unavailable Pcp, No Primary Care Provider Unavailabl e Gus Giles MD Primary Care Provider [phone] Genie Aguilar MD Primary Care Provider [phone] Encounter Details Date Type Department Care Team (Late st Contact Info) Description 11/15/[address] [facility] [address] [facility] [address] [place] [phone] Giovanna Olmstead, [employer] [address] [place] [address] Social History Tobacco Use Types Packs/Day Years [...] on filedocumented in this encounter Care Teams Canvas Baster Relationship Specialty Start Date End Date Kevon Estrella MD PCP - General Internal Medicine 11/28/18 02/06/23 Pcp, No PCP - General General Medicine 07/14/23 06/19/24 Gus Giles MD [address] [facility] [place] [address] PCP - General Family Medicine 06/20/24 12/05/24 Genie Aguilar MD [address] [place] [address] [place] [address] PCP - General Internal Medicine 12/06/24 documented as of this encounter
--- OUTSIDE RECORDS SUMMARY | 2025-01-20 12:28 | XMS_ITS | Clinical Summary ---
Author Organization [facility] Address [address] [place] [address] Care Team Providers Care Weight And Test Bar Clerk Name Role Phone Gus Giles MD Primary Care Provider [phone] Allergies Active Allergy Reactions Criticality Noted Date [...] age to complete this topic Care Teams Weight And Test Bar Clerk Relationship Specialty Start Date End Date Gus Giles MD PCP - General Family Medicine 02/03/20
--- OUTSIDE RECORDS SUMMARY | 2025-01-20 12:28 | XMS_ITS | Data Portability ---
Author Organization [place] - [facility], Allergy Address [address] [address] Care Team Providers Care Printing Manager Name Role Phone QING SANTOS Primary Care [...] Sensorine ural hearing loss of bilateral ears [id number] Active 2019 Sensorine ural hearing loss, bilateral ; Note: Date Diagnosed : 03/20/2020 8:43 PM (H90.3) Not Available [facility] 4 02:31:40 Tinnitus of right ear [id number] Active 2019 Tinnitus, right ear; Note: Date Diagnosed : 03/20/2020 8:43 PM (H93.11) Not Available [facility] 4 02:31:27 Problem Notes None recorded. Procedures Surgical History Date Name Laterality Status Provider Name and Address Organization Details Recorded Time 12/11/19 24 Air only Audio - 17878 completed SILAS PENA [address], [address], [facility] 12/11/2023 10:21:25 12/11/19 24 Tympanometry - 53660 completed SILAS PENA [address], [address], [facility] 12/11/2023 10:21:59 12/11/19 24 SRT & Speech Recognition - 10802 completed SILAS PENA [address], [address], [facility] 12/11/2023 10:21:37 total knee replacement completed JC LEWIS MD [address] [place] [address], [phone], [facility] 12/11/2023 10:33:06 Imaging Results None recorded. Procedure Notes None recorded. Medical Equipment None Reported. Allergies Allergen ID Allergen Name Allergen Category Reaction Reaction Severity Criticality Documentation Date Start Date Code Code System Note Provider Name and Address Organization Details Recorded Time 85093 propoxyph meron hydrochlo ride medicatio n hives Not available Not available 11/14/2023 16721 RxNorm React ion: skin rashe s, hives ;; Not Available [facility] 4 00:55:24 83593 methadone medicatio n other Not available Not available 11/14/2023 6813 RxNorm React ion: unkno wn, unspe cifie d;; Not Available [facility] 4 00:55:25 25644 naproxen medicatio n angioedem a Not available Not available 11/14/2023 7258 RxNorm React ion: swell ing of tongu e or mouth ;; Not Available [facility] 4 00:55:33 95495 tramadol Not available angioedem a Not available Not available 11/14/2023 20805 RxNorm React ion: swell ing of tongu e or mouth ;; Not Available [facility] 4 00:55:37 Medications Name Sig Start Date [...] topical cream 12/10 completed Medicati on ID: [id number] D uration Value: 10 Brand Name: nystatin Send Method: E-Prescr ibed Sub s Allowed: subs TROY Nix al Instruct ion: APPLY TO FOLDING AREAS TWICE A DAY FOR 7 TO 10 DAYS PER ERUPTION Medicat ionGener icName: nystatin Medicat ion ID: [id number] D uration Value: 10 Brand Name: nystatin Send Method: E-Prescr ibed Sub s Allowed: subs OK Speci al Instruct ion: APPLY TO FOLDING AREAS TWICE A DAY FOR 7 TO 10 DAYS PER ERUPTION Medicat ionGener icName: nystatin Not Available Not Available Not Available betametha sone dipropion ate 0.05 % topical ointment active Medicati on ID: [id number] D uration Value: 30 Brand Name: betameth [...] topical powder 12/10 completed Medicati on ID: [id number] D uration Value: 30 Brand Name: Anti-Fun gal Send Method: E-Prescr ibed Sub s Allowed: subs OK Speci al Instruct ion: APPLY TO ABDOMINA L FOLD 2 3 TIMES A DAY Medi cationGe nericNam e: Anti-Fun gal Medi cation ID: [id number] D uration Value: 30 Brand Name: Anti-Fun [...] Updated DateTime 12/11/2023 165.1 cm 31.6 kg/m2 02022.55 g Lotus Block [place] - [facility] 12/11/2023 10:30:38 Social History None recorded. [...] Diagnosis Note [id number] JC LEWIS MD [facility] [address] [address] 12/11/2023 09:43:39 12/11/2023 10:40:44 Sensorineural hearing loss of bilateral ears [id number] H90.3 78-year-ol d female presents today for [...] 1 [employer] (MEDICARE REPLACEMENT /ADVANTAGE - PPO) [id number] A Rachelle Markham [id number] Margaret Markham Notes Date Note Type Note Provider Name and Address Organization Details Recorded Time 12/11/2023 text/html 78 yo F for hearing loss. Having trouble in conversation. No tinnitus or dizziness. Has tension headaches. JC LEWIS MD [address] [place] [address], [phone] - [facility] 12/11/2023 10:42:56 OBGyn Episode No OBEpisode recorded.
== END 2025-01-18 18:31 | disposition home or self-care (01) ==
PROVIDERS: Physician Assistant; Physician Assistant Medical; Emergency Provider Emergency Medicine
DX: R19.7 Diarrhea, unspecified (principal); R11.2 Nausea with vomiting, unspecified; R10.13 Epigastric pain; R10.11 Right upper quadrant pain; Z79.899 Other long term (current) drug therapy
CPT/HCPCS: 36415; 74177; 80053; 81001; 82272; 83690; 83735; 84484; 85025; 93005; 96361; 96374; 99285; J2405; Q9967

== ENCOUNTER → 2025-01-18 15:18 | Outpatient (BNV) | payer MEDICARE, SELFPAY | PROVIDERS: Emergency Provider Emergency Medicine; Visit Provider Radiology Diagnostic Radiology | DX: R10.9 Unspecified abdominal pain (principal); R19.7 Diarrhea, unspecified | CPT/HCPCS: 74177 ==

== ENCOUNTER → 2025-01-18 15:19 | Outpatient (BNV) | payer MEDICARE, SELFPAY | PROVIDERS: Emergency Provider Emergency Medicine; Visit Provider Internal Medicine | DX: R53.1 Weakness (principal) | CPT/HCPCS: 93010 ==

== ENCOUNTER 2025-01-27 14:55 | Outpatient (AMB) | payer MEDICARE, SELFPAY ==
--- OUTSIDE RECORDS SUMMARY | 2024-04-11 13:57 | XMS_ITS | Encounter Summary ---
Author Organization [facility] Address [address] [place] [address] Care Team Providers Care Financial Services Professional Name Role Phone Gus Giles MD Primary Care Provider Encounter Details Date Type Department Care Team (Late st Contact Info) Description 04/11/2024 1:57 PM EDT Hospital Encounter TH [facility]OR[facility] ONLY Gus Giles MD [address] [place] [address] Social History Tobacco Use Types Packs/Day Years [...] this encounter Progress Notes * Gus Giles MD - 04/11/2024 2:00 PM EDT Images from the original note were not included. Progress Notes by Gus Giles MD at 04/11/2024 2:00 PM Author: Gus Giles MD Service: -- Author Type: Physician Filed: 04/14/2024 9:21 PM Encounter Date: 04/11/2024 Status: Signed Duty Manager: Gus Giles MD (Physician) [facility] 1945 79 y.o. 04/14/24 Pre-Op Dx PRE-OP DIAGNOSIS: Carpal tunnel syndrome, right: Trigger finger Proposed Proc. PROPOSED PROCEDURE: Right endoscopic carpal tunnel release, right middle and ring trigger release PROCEDURE DATE: 05/17/2024 Surg/Endo SURGEON/ENDOSCOPIST: Dr. Latif Rodríguez [facility]: [facility] SURGEON/ENDOSCOPIST Anesthetic Preference: MAC Here for prrop [...] pack years: 18.00 Types: Cigarettes Quit date: 1975 Years since quittin.8 ? Smokeless tobacco: Never [...] ? ECG 12 lead Gus Giles MD [address] [place] [address] documented in this encounter Plan of Treatment Not on file documented as of this encounter Visit Diagnoses Not on filedocumented in this encounter Care Teams Financial Services Professional Relationship Specialty Start Date End Date Gus Giles MD PCP - General 02/03/20 documented as of this encounter
--- NOTE | 2025-01-27 14:58 | MHC.PC.OV ---
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: No Accompanied by: Self / Same As Patient Allergies naproxen (NAPROXEN) Allergy (Intermediate, Verified 01/27/25 15:20) SWELLING, RASH, rash, swelling rosuvastatin (From CRESTOR) Allergy (Intermediate, Verified 01/27/25 15:20) MUSCLE ACHE simvastatin (SIMVASTATIN) Allergy (Intermediate, Verified 01/27/25 15:20) ITCHING, joint pain, cough Darvon Allergy (Unknown, Verified 01/27/25 15:20) rash, swelling oxybutynin Allergy (Unknown, Verified 01/27/25 15:20) itching From DARVON Allergy (Intermediate, Uncoded 01/27/25 15:20) HIVES,SWELLING Medication List - Last Reconciled 01/27/25 by Carmina Sepulveda PA-C alprazolam 0.5 mg PO DAILY PRN [id number] 1.7 mg-400 mcg- 2.4 mcg (Neuriva Plus Brain Performance) caps PO cholecalciferol (vitamin D3) 125 mcg PO DAILY clotrimazole 1% 1 appl topical BID dexlansoprazole (Dexilant) 60 mg PO DAILY nystatin 1 appl topical DAILY ondansetron 4 mg PO Q6H PRN sertraline 50 mg PO DAILY Tobacco use date assessed: 11/13/24 Fall risk assessment: No Falls in past year Last assessed Fall Risk: 01/27/25 Dental Screening Dental Screen Date: 01/27/25 Did you have a dental visit in the last 12 months?: No Did you have a dental problem in the last 6 months where you did not have access to dental care?: No Was dental information given to patient?: No HPI [facility] HPI Details 79-year-old female with past medical history of hypercholesterolemia, impaired glucose tolerance, GERD, depression and elevated blood pressure last seen 10/2024 coming in for follow up. In review of the notes, patient was seen in [facility] ED 12/2024 for nausea, diarrhea, abdominal pain CT does not reveal any reason for the symptoms and blood work was reassuring and patient was discharged home. Presenting with persistent nausea and depression. Nausea began approximately three weeks ago, initially accompanied by diarrhea, which has since resolved. The nausea persists despite the resolution of diarrhea, and Zofran has been prescribed with partial relief. The patient has experienced weight loss of approximately 10 pounds since October, likely related to decreased appetite and nausea. Depression has been ongoing for several months, characterized by frequent crying and lack of motivation. The patient has been on sertraline for years, recently reduced to 50 mg, but reports it is not effective and may contribute to suicidal thoughts. [facility] Surgical History History of knee replacement H/O hand surgery Family History Father Prostate cancer Mother Breast cancer Brother FH: mental illness Social History Housing: House Housing Other:: Downstairs unit in son's home Alcohol intake: current Alcohol intake frequency: holidays/special occasions only Alcohol type: wine Patient Tobacco Use Status: Former Tobacco user Years Smoked: quit over 40 years e-Cigarette/Vaping Use: Never Used Second Hand Smoke Exposure: Yes service: No Current occupational status: retired Cognitive needs: No Hearing needs: Yes (Hearing aids) Vision needs: Yes (Glasses) Questionnaire Thrive Questionnaire Date Thrive assessed: 01/27/25 I am a: Patient What is your living situation today?: I have a steady place to live Within the past 12 months, did the food you bought not last and you didn't have the money to get more?: I choose not to answer this question Within the past 12 months, did you worry whether your food would run out before you got money to buy more?: I choose not to answer this question Do you have trouble paying for medicines?: I choose not to answer this question Do you have trouble getting transportation to medical appointments?: I choose not to answer this question Do you have trouble paying your heating and electricity bill?: I choose not to answer this question Do you have trouble taking care of your child, family member or friend?: I choose not to answer this question Do you have trouble with day-to-day activities such as bathing, preparing meals, shopping, managing finances, etc.?: No Are you currently unemployed and looking for a job?: No Are you interested in more education?: No Currently or been in a relationship where the following occur: No concerns reported THRIVE Score: 0 FAUSTO-7 AMB Questionnaire FAUSTO-7 Date FAUSTO - 7 assessed: 01/27/25 Source: Developed by Drs. Marc Dai, Felicita Ren, Andrew Braun and colleagues, with an educational yoli from [employer]. Review of Systems Const Denies body aches, Denies chills, Denies fever(s), Denies headache(s) and Denies poor appetite Eyes Reports no additional complaints ENT Denies dysphagia, Denies dizziness, Denies headache(s) and Denies odynophagia Card Denies chest pain, Denies syncope, Denies edema, Denies irregular heart rhythm, Denies lightheadedness and Denies dyspnea Resp Denies cough and Denies dyspnea GI Denies abdominal pain, Denies constipation, Denies dysphagia, Denies diarrhea, Reports nausea, Denies odynophagia and Denies vomiting Reports no additional complaints Musc Reports no additional complaints and Denies abnormal gait Skin/Breast Reports system reviewed and no additional complaints, except as documented Neuro Denies abnormal gait, Denies dizziness, Denies syncope and Denies headache(s) Psych Reports no additional complaints Physical exam (Primary Care) Vital Signs: Last Vital Signs Temp 98.7 F 01/27/25 15:00 Pulse 73 01/27/25 15:00 BP 162/70 H 01/27/25 15:00 Pulse Ox 97 01/27/25 15:00 Oxygen Delivery Method Room Air 01/27/25 15:00 BMI result Body Mass Index 30.9 Tobacco/Smoking Status: Tobacco use Status Tobacco use date assessed 11/13/24 01/27/25 14:59 Patient Tobacco Use Status Former Tobacco user 01/27/25 14:59 e-Cigarette/Vaping Use Never Used 01/27/25 14:59 Thrive Assessment: Date of Thrive Assessment Date Thrive assessed 01/27/25 01/27/25 15:06 Currently or been in a relationship where the following occur: No concerns reported Const General: cooperative, healthy appearing, comfortable and no acute distress Orientation/consciousness: patient oriented x3 HENMT Other: White plaques on the inside of the mouth and on the tongue. Head: Yes normocephalic Ears: hearing grossly normal bilaterally General nose exam: Normal external nose present Eyes General: appearance normal, both eyes and all related structures Conjunctivae: conjunctivae normal Neck Neck: Yes full ROM and Yes no lymphadenopathy Resp Effort & Inspection: normal respiratory effort Auscultation: clear to auscultation bilaterally, no crackles, no rales, no rhonchi and no wheezes Cardio Rate: regular rate Rhythm: regular rhythm GI Palpation (GI): Soft to palpation, not firm, nontender, no guarding and not rigid Skin General skin exam: no rashes or lesions noted Neuro General: patient oriented x3 Gait exam (Neuro): Normal gait present Extrem General: Yes normal to inspection, Yes full ROM and No edema Psych Affect: normal affect Attitude: cooperative Insight: Good insight present (Psych) Judgement: Good judgement present (Psych) Coding Level of Care Code Est Pt Level 4 (23882) Diagnoses Elevated blood pressure reading without diagnosis of hypertension R03.0 Type 2 diabetes mellitus without complication, without long-term current use of insulin E11.9 Diabetes mellitus complication status: without complication Diabetes mellitus shelter insulin use: without shelter use Diabetes mellitus type: type 2 Diarrhea R19.7 Thrush B37.0 Nausea R11.0 Depression F32.A Assessment & Plan Assessment & Plan (1) Elevated blood pressure reading without diagnosis of hypertension: Code(s): R03.0 - Elevated blood-pressure reading, without diagnosis of hypertension Category: Medical Plan: Continue on current blood pressure medication. Avoid salt intake and encourage healthy diet and regular exercise. (2) Diabetes mellitus: Code(s): E11.9 - Type 2 diabetes mellitus without complications Category: Medical Qualifiers: Diabetes mellitus complication status: without complication Diabetes mellitus business segment manager insulin use: without shelter use Diabetes mellitus type: type 2 Qualified Code(s): E11.9 - Type 2 diabetes mellitus without complications Plan: Decrease the amount of carbohydrates such as pasta, bread, rice, and potatoes and limit the amount of sweets. Although fruits are generally healthy they should be eaten in moderation as they are still high in sugar. (3) Diarrhea: Code(s): R19.7 - Diarrhea, unspecified Category: Medical Plan: Patient complaining of diarrhea which has since resolved. (4) Thrush: Code(s): B37.0 - Candidal stomatitis Category: Medical Plan: On exam patient does have oral thrush likely due to her use of dentures. Recommend nystatin rinse and discussed proper hygiene for denture care. (5) Nausea: Code(s): R11.0 - Nausea Category: Medical Plan: Patient having nausea blood work and CAT scan are normal and no reason identified with this testing. Does not appear to be related to medication. Plan to try promethazine 12.5 mg as needed for nausea and discontinue Zofran as it is not helpful this time. She will continue with same for H pylori and was able to obtain a GI appointment for Monday. (6) Depression: Code(s): F32.A - Depression, unspecified Category: Medical Plan: Patient endorses significant feelings of depression and anxiety she would like to discontinue office sertraline as they can contribute to thoughts of self-harm. She is declining medication management at this time. I did offer the patient many services which were declined however patient is willing to try therapy and referral was placed to counseling today. Plan The plan includes addressing the persistent nausea by conducting an H. pylori test, which requires the patient to be off dexalint for two weeks. The patient will continue Zofran for nausea management, although it provides only partial relief. For depression and anxiety, the patient will taper off sertraline by taking 50 mg every other day for two weeks, with monitoring for withdrawal symptoms. A referral to a therapist will be initiated to provide additional support for mental health concerns. The patient will be encouraged to maintain a bland diet to manage gastrointestinal symptoms. This note was constructed using voice recognition software. While every effort has been made to ensure accuracy and motor and generator assembler, still areas may have been included sometimes these areas may affect the content or meeting of the given symptoms. Total time spent caring for the patient today was 30 minutes. This includes time spent before the visit reviewing the chart, time spent during the visit, and time spent after the visit and documentation. Patient was informed and verbally consented to the use of an ambient scribe for clinic note documentation during this visit. Orders: Orders H pylori Ag Stool Today K21.9 - Gastro-esophageal reflux disease without esophagitis Referrals Counseling Referral F32.A - Depression, unspecified, F41.9 - Anxiety disorder, unspecified Medications: New nystatin swish and swallow 1 mL PO DAILY 60 mL 0RF promethazine 12.5 mg PO TID PRN 30 tabs 0RF nausea and vomiting Discontinued ondansetron Discontinued Reason: Patient no longer taking 4 mg PO Q6H PRN 12 tabs 0RF nausea and vomiting sertraline Discontinued Reason: Patient no longer taking 50 mg PO DAILY 90 tabs 1RF nystatin Discontinued Reason: Patient Completed Course 1 appl topical DAILY 30 grams 0RF
[2025-01-27 15:00] VITALS: BP 162/70; PULSE 73; TEMP 37.1; O2SAT 97; BMI 30.9
--- OUTSIDE RECORDS SUMMARY | 2025-01-27 15:29 | XMS_ITS | Encounter Summary ---
Author Organization [facility] Address [address] [place] [address] Care Team Providers Care Social Worker Aide Name Role Phone Kevon Estrella MD Primary Care Provider Unavailable Pcp, No Primary Care Provider Unavailabl e Gus Giles MD Primary Care Provider [phone] Genie Aguilar MD Primary Care Provider [phone] Encounter Details Date Type Department Care Team (Late st Contact Info) Description 11/15/[address] [facility] [address] [facility] [address] [place] [phone] Giovanna Olmstead, HOME VISITOR [address] [place] [address] Social History Tobacco Use Types Packs/Day Years [...] on filedocumented in this encounter Care Teams Social Worker Aide Relationship Specialty Start Date End Date Kevon Estrella MD PCP - General Internal Medicine 11/28/18 02/06/23 Pcp, No PCP - General General Medicine 07/14/23 06/19/24 Gus Giles MD [address] [place] [address] PCP - General Family Medicine 06/20/24 12/05/24 Genie Aguilar MD [address] [place] [address] [place] [id number] PCP - General Internal Medicine 12/06/24 documented as of this encounter
--- OUTSIDE RECORDS SUMMARY | 2025-01-27 15:29 | XMS_ITS | Data Portability ---
Author Organization [place] - [facility], [facility]ergy Address [address] [address] Care Team Providers Care Hand Trimmer Name Role Phone QING SANTOS Primary Care [...] Sensorine ural hearing loss of bilateral ears [id number] Active 2019 Sensorine ural hearing loss, bilateral ; Note: Date Diagnosed : 03/20/2020 8:43 PM (H90.3) Not Available [facility] 4 02:31:40 Tinnitus of right ear [id number] 08 Active 2019 Tinnitus, right ear; Note: Date Diagnosed : 03/20/2020 8:43 PM (H93.11) Not Available [facility] 4 02:31:27 Problem Notes None recorded. Procedures Surgical History Date Name Laterality Status Provider Name and Address Organization Details Recorded Time 12/11/19 24 Air only Audio - 23576 completed SILAS PENA [address], [address], [facility] 12/11/2023 10:21:25 12/11/19 24 Tympanometry - 98198 completed SILAS PENA [address], [address], [facility] 12/11/2023 10:21:59 12/11/19 24 SRT & Speech Recognition - 18697 completed SILAS PENA [address], [address], [facility] 12/11/2023 10:21:37 total knee replacement completed JC LEWIS MD [address] [place] [address], [phone], [facility] 12/11/2023 10:33:06 Imaging Results None recorded. Procedure Notes None recorded. Medical Equipment None Reported. Allergies Allergen ID Allergen Name Allergen Category Reaction Reaction Severity Criticality Documentation Date Start Date Code Code System Note Provider Name and Address Organization Details Recorded Time 64677 propoxyph meron hydrochlo ride medicatio n hives Not available Not available 11/14/2023 39447 RxNorm React ion: skin rashe s, hives ;; Not Available [facility] 4 00:55:24 57010 methadone medicatio n other Not available Not available 11/14/2023 6813 RxNorm React ion: unkno wn, unspe cifie d;; Not Available [facility] 4 00:55:25 48534 naproxen medicatio n angioedem a Not available Not available 11/14/2023 7258 RxNorm React ion: swell ing of tongu e or mouth ;; Not Available [facility] 4 00:55:33 17354 tramadol Not available angioedem a Not available Not available 11/14/2023 08067 RxNorm React ion: swell ing of tongu e or mouth ;; Not Available [facility] 4 00:55:37 Medications Name Sig [...] topical cream 12/10 completed Medicati on ID: [id number] D uration Value: 10 Brand Name: nystatin Send Method: E-Prescr ibed Sub s Allowed: subs TROY Nix al Instruct ion: APPLY TO FOLDING AREAS TWICE A DAY FOR 7 TO 10 DAYS PER ERUPTION Medicat ionGener icName: nystatin Medicat ion ID: [id number] D uration Value: 10 Brand Name: nystatin Send Method: E-Prescr ibed Sub s Allowed: subs OK Speci al Instruct ion: APPLY TO FOLDING AREAS TWICE A DAY FOR 7 TO 10 DAYS PER ERUPTION Medicat ionGener icName: nystatin Not Available Not Available Not Available betametha sone dipropion ate 0.05 % topical ointment active Medicati on ID: [id number] D uration Value: 30 Brand Name: betameth [...] topical powder 12/10 completed Medicati on ID: [id number] D uration Value: 30 Brand Name: Anti-Fun gal Send Method: E-Prescr ibed Sub s Allowed: subs OK Speci al Instruct ion: APPLY TO ABDOMINA L FOLD 2 3 TIMES A DAY Medi cationGe nericNam e: Anti-Fun gal Medi cation ID: [id number] D uration Value: 30 Brand Name: Anti-Fun [...] Updated DateTime 12/11/2023 165.1 cm 31.6 kg/m2 66291.55 g Lotus Block [place] - [facility] 12/11/2023 10:30:38 Social History None recorded. [...] Diagnosis Note [id number] JC LEWIS MD [facility] [address] [address] 12/11/2023 09:43:39 12/11/2023 10:40:44 Sensorineural hearing loss of bilateral ears [id number] H90.3 78-year-ol d female presents today for [...] 1 [employer] (MEDICARE REPLACEMENT /ADVANTAGE - PPO) [id number] Eduard Markham [id number] Margaret Markham OBGyn Episode No OBEpisode recorded.
--- OUTSIDE RECORDS SUMMARY | 2025-01-27 15:29 | XMS_ITS | Clinical Summary ---
Author Organization [facility] Address [address] [place] [address] Care Team Providers Care Field Insurance Sales Manager Name Role Phone Gus Giles MD Primary Care Provider [phone] Allergies Active Allergy Reactions Criticality Noted Date [...] age to complete this topic Care Teams Field Insurance Sales Manager Relationship Specialty Start Date End Date Gus Giles MD PCP - General Family Medicine 02/03/20
== END 2025-01-27 16:00 | disposition home or self-care (01) ==
LOC: HO.HMCH 14:56
DX: R03.0 Elevated blood-pressure reading, without diagnosis of hypertension (principal); E11.9 Type 2 diabetes mellitus without complications; R19.7 Diarrhea, unspecified; B37.0 Candidal stomatitis; R11.0 Nausea; F32.A Depression, unspecified

== ENCOUNTER → 2025-01-27 14:55 | Outpatient (BNVA) | payer MEDICARE, SELFPAY | DX: K21.9 Gastro-esophageal reflux disease without esophagitis (principal); R19.7 Diarrhea, unspecified; F32.A Depression, unspecified; R11.0 Nausea; R03.0 Elevated blood-pressure reading, without diagnosis of hypertension; E11.9 Type 2 diabetes mellitus without complications; B37.0 Candidal stomatitis | CPT/HCPCS: 96127; 99212 ==

== ENCOUNTER 2025-01-31 14:51 | Outpatient (AMB) | payer MEDICARE, SELFPAY ==
--- OUTSIDE RECORDS SUMMARY | 2024-04-11 13:57 | XMS_ITS | Encounter Summary ---
Author Organization [employer] Address [address] [place] [address] Care Team Providers Care Refueling Rampman Name Role Phone Gus Giles MD Primary Care Provider [phone] Encounter Details Date Type Department Care Team (Late st Contact Info) Description 04/11/2024 1:57 PM EDT Hospital Encounter TH H[facility]OR[facility] ENCOUNTER[facility] ONLY Gus Giles MD [address] [place] [address] Social History Tobacco Use Types Packs/Day Years [...] 9:21 PM Encounter Date: 04/11/2024 Status: Signed Senior Quality Control Inspector: Gus Giles MD (Physician) [facility] 1945 79 y.o. 04/14/24 Pre-Op Dx PRE-OP DIAGNOSIS: Carpal tunnel syndrome, right: Trigger finger Proposed Proc. PROPOSED PROCEDURE: Right endoscopic carpal tunnel release, right middle and ring trigger release PROCEDURE DATE: 05/17/2024 Surg/Endo SURGEON/ENDOSCOPIST: Dr. Latif Rodríguez [facility]: [facility] SURGEON/ENDOSCOPIST Anesthetic Preference: MAC Here for [...] ? ECG 12 lead Gus Giles MD [address], [address] [place] [address] documented in this encounter Plan of Treatment Not on file documented as of this encounter Visit Diagnoses Not on filedocumented in this encounter Care Teams Refueling Rampman Relationship Specialty Start Date End Date Gus Giles MD PCP - General 02/03/20 documented as of this encounter
--- OUTSIDE RECORDS SUMMARY | 2025-01-31 14:54 | XMS_ITS | Clinical Summary ---
Author Organization [facility] Address [address] [place] [address] Care Team Providers Care Registered Art Therapist Name Role Phone Gus Giles MD Primary Care Provider [phone] Allergies Active Allergy Reactions Criticality Noted Date [...] age to complete this topic Care Teams Registered Art Therapist Relationship Specialty Start Date End Date Gus Giles MD PCP - General Family Medicine 02/03/20
--- OUTSIDE RECORDS SUMMARY | 2025-01-31 14:54 | XMS_ITS | Encounter Summary ---
Author Organization [facility] Address [address] [place] [address] Care Team Providers Care Barrel Lathe Operator Outside Name Role Phone Kevon Estrella MD Primary Care Provider Unavailable Pcp, No Primary Care Provider Unavailabl e Gus Giles MD Primary Care Provider [phone] Genie Aguilar MD Primary Care Provider Encounter Details Date Type Department Care Team (Late st Contact Info) Description 11/15/[address] [facility] [address] [place] [phone] Giovanna Olmstead, UR COORDINATOR [address] [place] [address] Social History Tobacco Use Types Packs/Day Years [...] on filedocumented in this encounter Care Teams Barrel Lathe Operator Outside Relationship Specialty Start Date End Date Kevon Estrella MD PCP - General Internal Medicine 11/28/18 02/06/23 Pcp, No PCP - General General Medicine 07/14/23 06/19/24 Gus Giles MD [address] [facility] [place] [address] PCP - General Family Medicine 06/20/24 12/05/24 Genie Aguilar MD [address] [place] [address] [place] [address] PCP - General Internal Medicine 12/06/24 documented as of this encounter
--- NOTE | 2025-01-31 14:55 | A.OFFVIS_ITS ---
Vital Signs 01/31/25 14:57 Height 5 ft 5 in Weight 186 lb BMI 30.9 BP 146/76 H Blood Pressure Location Rt brachial Position Sitting Pulse 84 Pulse Source Pulse Oximeter Pulse Oximetry (%) 96 Oxygen Delivery Method Room Air Intake Visit Reasons: er follow up diarrhea Intake Note: New pt for initial eval of GERD, abd pain, diarrhea w/o bleeding. ED FUV. PCP via [facility]. CT done via ED. CC: C.O. moderate to severe nausea, currently being managed with promethazine TID which makes sx tolerable . Pt also recently has experienced diarrhea and abd discomfort. Pt also receiving ongoing tx for thrush. Chipper Machine Operator Required: No Accompanied by: Sister Allergies naproxen (NAPROXEN) Allergy (Intermediate, Verified 01/31/25 14:58) SWELLING, RASH, rash, swelling rosuvastatin (From CRESTOR) Allergy (Intermediate, Verified 01/31/25 14:58) MUSCLE ACHE simvastatin (SIMVASTATIN) Allergy (Intermediate, Verified 01/31/25 14:58) ITCHING, joint pain, cough Darvon Allergy (Unknown, Verified 01/31/25 14:58) rash, swelling oxybutynin Allergy (Unknown, Verified 01/31/25 14:58) itching From DARVON Allergy (Intermediate, Uncoded 01/31/25 14:58) HIVES,SWELLING HPI HPI er follow up diarrhea: Details: ED VISIT MDM Narrative: This is a 79 year old female, with a past medical history of depression, anxiety, GERD, hypercholesterolemia, who presents emergency department for evaluation of nausea, diarrhea, and abdominal pain. On arrival, blood pressure 156/75, all other vital signs within normal limits. She is speaking full sentences under no acute distress. Abdomen is soft with diffuse tenderness thr oughout, more pronounced in the epigastrium and left upper quadrant, no rebound or guarding. Differential diagnoses include acute diverticulitis, diverticulosis, atypical ACS, electrolyte derangement, C diff, infectious diarrhea. Labs were obtained prior to my evaluation, she was no leukocytosis, chemistry revealing no significant electrolyte derangement. Plan: Labs, UA, CT abdomen and pelvis, IV antiemetics and IV fluids. 1728 - ct scan returns, no acute findings. Patient re-evaluated, feeling slightly improved. Urine with no acute findings. Blood work reassuring. She was not been able to provide a stool sample as of yet. Given that patient was not had any fevers or chills, non bloody diarrhea, patient may benefit from several days of Imodium and sticking to the brat diet. We will refer to GI specialty for further workup. Given outpatient lab rec for patient to provide stool sample if needed. Patient feeling better overall, patient stable for discharge. TODAY'S VISIT Patient is here today for initial consultation. Patient was seen in the ER couple weeks ago for abdominal pain, nausea, vomiting and diarrhea. CT scan and all workup was negative. Patient was given nausea medicine and sent home. See her PCP and was found to have thrush. Patient was diagnosed with GERD long time ago and has been on Dexilant. Her PCP stopped for 2 weeks so patient can get H pylori testing. It will be 2 weeks on February 05. Patient denies dysphagia or odynophagia. Reports nausea and dyspepsia. She is taking promethazine and reports that is helping. However patient states that sometimes she will have nausea despite taking it. Patient reports that she is no longer having diarrhea . Admits that her stools are not normal. Moves her bowels once a day, however she feels like she does not empty her bowels completely. Patient reports these she has Metamucil at home, however states that she is not taking it. Patient drinks plenty fluids. Patient voiced to her PCP during last visit that she was very depressed, always crying and sometimes suicidal. It was due to her sertraline. Currently patient is on sertraline every other day weaning off of the medication. She is seeing therapist and has psychiatry referral pending. Patient is here today with her sister. Patient denies SI today. Colonoscopy 2013 showed tubular adenoma Endoscopy 2014 performed for delay gastric emptying after GES showed 80% of food at for hours after ingesting Endoscopy 2016 for dysphagia. Dilation performed. Patient had abnormal upper GI with barium swallow. [facility] Surgical History S/P colon polypectomy History of colonoscopy History of esophagogastroduodenoscopy (EGD) History of knee replacement H/O hand surgery Family History Father Prostate cancer Mother Breast cancer Brother FH: mental illness Social History Housing: House Housing Other:: Downstairs unit in son's home Alcohol intake: current Alcohol intake frequency: holidays/special occasions only Alcohol type: wine Patient Tobacco Use Status: Former Tobacco user Years Smoked: quit over 40 years e-Cigarette/Vaping Use: Never Used Second Hand Smoke Exposure: Yes service: No Current occupational status: retired Cognitive needs: No Hearing needs: Yes (Hearing aids) Vision needs: Yes (Glasses) Review of Systems Const Denies weight gain and Denies weight loss ENT Reports no additional complaints, Denies dysphagia and Denies odynophagia Card Reports no additional complaints Resp Reports no additional complaints GI Reports abdominal pain, Reports belching, Denies melena, Reports bloating (Occasional), Denies change in bowel habits, Reports constipation (Occasional), Denies dysphagia, Denies excessive flatus, Denies dyspepsia, Reports heartburn, Denies diarrhea, Denies loose stools, Reports nausea, Denies odynophagia and Denies vomiting Reports no additional complaints Musc Reports no additional complaints Neuro Reports no additional complaints Psych Reports no additional complaints Endo Reports no additional complaints Physical Exam Vital Signs: BMI result Body Mass Index 30.9 Const General: healthy appearing, no acute distress and well developed Nutritional Appearance: well nourished and obese Orientation/consciousness: patient oriented x3 Resp Effort & Inspection: normal respiratory effort, able to speak in complete sentences, no tracheal deviation and symmetric chest movement Auscultation: clear to auscultation bilaterally Cardio Rate: regular rate GI Inspection: Yes normal to inspection, No distended and Yes obesity Palpation (GI): Soft to palpation, not firm, nontender and No hepatosplenomegaly present Auscultation: normal bowel sounds General: Yes no CVA tenderness Back/Spine/Pelvis Back: no CVA tenderness Skin General skin exam: elasticity normal, turgor normal and dry skin Neuro General: patient oriented x3 Psych Appearance: grossly normal Mental Status: mental status grossly normal Assessment & Plan Assessment & Plan (1) GERD (gastroesophageal reflux disease): Code(s): K21.9 - Gastro-esophageal reflux disease without esophagitis Category: Medical Qualifiers: Esophagitis presence: esophagitis presence not specified Qualified Code(s): K21.9 - Gastro-esophageal reflux disease without esophagitis (2) Nausea: Code(s): R11.0 - Nausea Category: Medical (3) Diarrhea: Code(s): R19.7 - Diarrhea, unspecified Category: Medical Qualifiers: Diarrhea type: functional diarrhea Qualified Code(s): K59.1 - Functional diarrhea (4) Postprandial epigastric pain: Code(s): R10.13 - Epigastric pain Plan Patient will continue holding her PPI. Will come back on the 7th for H pylori breath test. Will treat empirically positive. Will check transglutaminase, vitamin B12, folate, vitamin-D level. Patient will go for upper GI with barium swallow. If H pylori negative and patient continues to have epigastric pain after restarting PPI we will switch PPI and at H 2 reza. For now patient will take famotidine until 24 hours before H pylori testing just to offset her nausea. Patient still has epigastric pain and burning. Continue promethazine as needed. Patient will follow-up in the office in 3 months. She will call us if she will have any GI concerning symptoms. She is agreeable to this plan and verbalizes understanding of instructions. She was given the opportunity to ask questions and all questions answered. Thank you for allowing me to participate in her care Orders: Orders Transglutaminase Ab IgG Today R10.9 - Unspecified abdominal pain Transglutaminase IgA Today R10.9 - Unspecified abdominal pain Vitamin B12 and Folate Today R19.7 - Diarrhea, unspecified Vitamin D 25-OH (D2 and D3) Today E55.9 - Vitamin D deficiency, unspecified [place] upper GI w Ba Swallow Today K21.9 - Gastro-esophageal reflux disease without esophagitis Medications: New famotidine (Pepcid) 20 mg PO DAILY 30 tabs 3RF K21.9 - Gastro-esophageal reflux disease without esophagitis Coding Level of Care Code New Pt Level 4 (11608) Diagnoses Gastroesophageal reflux disease, unspecified whether esophagitis present K21.9 Esophagitis presence: esophagitis presence not specified Nausea R11.0 Functional diarrhea K59.1 Diarrhea type: functional diarrhea Postprandial epigastric pain R10.13 Time Spent (min) 50 Comment 35 minutes spent with patient and additional 10 minutes spent reviewing her records
[2025-01-31 14:57] VITALS: BP 146/76; PULSE 84; O2SAT 96; BMI 30.9
== END 2025-01-31 15:38 | disposition home or self-care (01) ==
LOC: HO.HGI 14:52
PROVIDERS: Visit Provider Nurse Practitioner Family
DX: K21.9 Gastro-esophageal reflux disease without esophagitis (principal); R11.0 Nausea; K59.1 Functional diarrhea; R10.13 Epigastric pain
CPT/HCPCS: 99204

== ENCOUNTER 2025-01-31 14:51 | Outpatient (REF) | payer MEDICARE, SELFPAY ==
--- OUTSIDE RECORDS SUMMARY | 2025-01-31 15:49 | XMS_ITS | Encounter Summary ---
Author Organization [facility] Address [address] [place] [address] Care Team Providers Care Sales Professional Bilingual Name Role Phone Genie Aguilar MD Primary Care Provider Unavailabl e Encounter Details Date Type Department Care Team Description 02/12/2020 Release of Information Medical Records [address] [place] [id number] Abstract, Provider Social History Tobacco Use Types Packs/Day Years Used Date Smoking Tobacco: Never Assessed Sex Assigned at Date Recorded Not on file documented as of this encounter Plan of Treatment Not on file documented as of this encounter Visit Diagnoses Not on filedocumented in this encounter Care Teams Sales Professional Bilingual Relationship Specialty Start Date End Date Genie Aguilar MD PCP - General 07/03/10 documented as of this encounter
[2025-01-31 17:39] LABS: Cholesterol 229 mg/dL (<200); HDL Cholesterol 67 mg/dL (>40); Triglycerides 147 mg/dL (<150)
[2025-01-31 18:12] LABS: Folate 11.8 ng/mL (> or = 4.0); Vitamin B12 346 pg/mL (200-900)
[2025-02-01 03:18] LABS: Hemoglobin A1C 156.1327 umol/L; Total Hemoglobin (HGBA1C) 3374.0490 umol/L
[2025-02-03 22:38] LABS: Transglutaminase Ab IgG <1.0 U/mL
[2025-02-04 17:28] LABS: Vitamin D 25-OH, D2 <4 ng/mL; Vitamin D 25-OH, D3 48 ng/mL; Vitamin D 25-OH, Total 48 ng/mL (30-100)
== END 2025-01-31 14:52 | disposition home or self-care (01) ==
LOC: HO.LAB 14:51
PROVIDERS: Visit Provider Nurse Practitioner Family
DX: K59.1 Functional diarrhea (principal); K21.9 Gastro-esophageal reflux disease without esophagitis; E78.00 Pure hypercholesterolemia, unspecified; E55.9 Vitamin D deficiency, unspecified; R73.02 Impaired glucose tolerance (oral); R11.0 Nausea; R10.13 Epigastric pain
CPT/HCPCS: 36415; 80061; 82306; 82607; 82746; 83036; 86364; 99202

== ENCOUNTER 2025-02-05 08:38 | Outpatient (REF) | payer MEDICARE, SELFPAY ==
[2025-02-06 11:55] LABS: CDiff Gene PCR NEGATIVE (Negative)
== END 2025-02-06 08:39 | disposition home or self-care (01) ==
LOC: HO.LNP 08:38
PROVIDERS: Visit Provider Nurse Practitioner Family
DX: K21.9 Gastro-esophageal reflux disease without esophagitis (principal); R19.7 Diarrhea, unspecified
CPT/HCPCS: 83013; 87177; 87209; 87338; 87493; 99211

== ENCOUNTER 2025-02-06 08:38 | Outpatient (AMB) | payer MEDICARE, SELFPAY ==
--- OUTSIDE RECORDS SUMMARY | 2024-04-11 13:57 | XMS_ITS | Encounter Summary ---
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 04/14/24 Pre-Op Dx PRE-OP DIAGNOSIS: Carpal tunnel syndrome, right: Trigger finger Proposed Proc. PROPOSED PROCEDURE: Right endoscopic carpal tunnel release, right middle and ring trigger release PROCEDURE DATE: 05/17/2024 Surg/Endo SURGEON/ENDOSCOPIST: Dr. Latif Rodríguez [facility]: [facility] SURGEON/ENDOSCOPIST Anesthetic Preference: MAC Here for [...] ? ECG 12 lead Gus Giles MD [address], [address] [place] [address] documented in this encounter Plan of Treatment Not on file documented as of this encounter Visit Diagnoses Not on filedocumented in this encounter Care Teams Statement Request Clerk Relationship Specialty Start Date End Date Gus Giles MD PCP - General 02/03/20 documented as of this encounter
--- NOTE | 2025-02-06 08:47 | AM.OFFVISNUR ---
Intake Visit Reasons: h pylori Allergies naproxen (NAPROXEN) Allergy (Intermediate, Verified 01/31/25 14:58) SWELLING, RASH, rash, swelling rosuvastatin (From CRESTOR) Allergy (Intermediate, Verified 01/31/25 14:58) MUSCLE ACHE simvastatin (SIMVASTATIN) Allergy (Intermediate, Verified 01/31/25 14:58) ITCHING, joint pain, cough Darvon Allergy (Unknown, Verified 01/31/25 14:58) rash, swelling oxybutynin Allergy (Unknown, Verified 01/31/25 14:58) itching From DARVON Allergy (Intermediate, Uncoded 01/31/25 14:58) HIVES,SWELLING Nursing Note Patient presents for collection of H Pylori breath test. Patient has been fasting for 1 hour (nothing to eat, drink, no chewing gum or smoking) has not taken any antacid medication for at least 2 weeks and has no allergies to artificial sweeteners.?? Assessment & Plan Assessment & Plan (1) GERD (gastroesophageal reflux disease): Code(s): K21.9 - Gastro-esophageal reflux disease without esophagitis Category: Medical Qualifiers: Esophagitis presence: esophagitis presence not specified Qualified Code(s): K21.9 - Gastro-esophageal reflux disease without esophagitis (2) Nausea: Code(s): R11.0 - Nausea Category: Medical (3) Diarrhea: Code(s): R19.7 - Diarrhea, unspecified Category: Medical Qualifiers: Diarrhea type: functional diarrhea Qualified Code(s): K59.1 - Functional diarrhea Plan Patient presents for collection of H Pylori breath test. Patient has been fasting for 1 hour (nothing to eat, drink, no chewing gum or smoking) has not taken any antacid medication for at least 2 weeks and has no allergies to artificial sweeteners.???This test checks for an overgrowth of bacteria in your stomach. We all have bacteria but some may have more than others. It is treatable. if the test comes back negative there is nothing else to do. If the test result is positive we will treat you with 2 antibiotics and a medication to decrease the acid in your stomach (PPI) for 2 weeks. Two weeks after you have completed the treatment we will retest you to make sure the overgrowth has resolved. Orders: Orders H Pylori Breath Test Today Patient Instructions: Process for specimen collection and reason for testing was explained to the patient. Specimen collection. Patient instructed to take a deep breath and then exhale into the blue bag, filling it up as much as possible. Patient instructed to drink a mixture of water and the artificial sweetener with a straw. A 15 minute wait period was observed. Patient instructed to take a deep breath and then exhale into the pink bag, filling it up as much as possible.?? Coding Level of Care Code Established Pt Est Pt Level 1 (18716) Patient Type Established Medical Decision Making Straight Forward Diagnoses Gastroesophageal reflux disease, unspecified whether esophagitis present K21.9 Esophagitis presence: esophagitis presence not specified Nausea R11.0 Functional diarrhea K59.1 Diarrhea type: functional diarrhea
--- OUTSIDE RECORDS SUMMARY | 2025-02-06 08:53 | XMS_ITS | Clinical Summary ---
Author Organization [facility] Address [address] [place] [address] Care Team Providers Care Disc Pad Knockout Worker Name Role Phone Gus Giles MD Primary Care Provider [phone] Allergies Active Allergy Reactions Criticality Noted Date [...] age to complete this topic Care Teams Disc Pad Knockout Worker Relationship Specialty Start Date End Date Gus Giles MD PCP - General Family Medicine 02/03/20
--- OUTSIDE RECORDS SUMMARY | 2025-02-06 08:53 | XMS_ITS | Encounter Summary ---
Author Organization [facility] Address [address] [place] [address] Care Team Providers Care Strategic Planner Name Role Phone Kevon Estrella MD Primary Care Provider Unavailable Pcp, No Primary Care Provider Unavailabl e Gus Giles MD Primary Care Provider Genie Aguilar MD Primary Care Provider [phone] Encounter Details Date Type Department Care Team (Late st Contact Info) Description 11/15/[address] [facility] 10 [facility] [address] [place] [phone] Giovanna Olmstead, FRYER OPERATOR [address] [place] [address] Social History Tobacco Use Types Packs/Day Years [...] on filedocumented in this encounter Care Teams Strategic Planner Relationship Specialty Start Date End Date Kevon Estrella MD PCP - General Internal Medicine 11/28/18 02/06/23 Pcp, No PCP - General General Medicine 07/14/23 06/19/24 Gus Giles MD [address] [facility] [place] [address] PCP - General Family Medicine 06/20/24 12/05/24 Genie Aguilar MD [address] [place] [address] [place] [address] PCP - General Internal Medicine 12/06/24 documented as of this encounter
== END 2025-02-06 09:21 | disposition home or self-care (01) ==
LOC: HO.HGI 08:39
PROVIDERS: Visit Provider Nurse Practitioner Family
DX: K21.9 Gastro-esophageal reflux disease without esophagitis (principal); R11.0 Nausea; K59.1 Functional diarrhea

== ENCOUNTER 2025-04-04 09:41 | Outpatient (REF) | payer MEDICARE, SELFPAY ==
--- NOTE | ~2025-04-04 | XR_ITS ---
EXAMINATION: XR CHEST CLINICAL INFORMATION: R06.02 - Shortness of breath COMPARISON: December 19, 2014 TECHNIQUE: 2 views of the chest were obtained. FINDINGS: Surgical clips project in the region just anterior to the diaphragmatic hiatus. Lungs are clear. Heart size is normal. The left hilum is mildly prominent but similar to the prior. There is no pleural effusion. There are mild degenerative changes in the thoracic spine and moderate degenerative changes in the left AC joint. XR/XR chest 2V IMPRESSION: No acute disease. Electronically signed by: Flash Lr MD 04/04/2025 11:54 AM EDT
[2025-04-04 11:37] LABS: MANUAL DIFF FLAG NO
[2025-04-04 11:57] LABS: Hematocrit 38.2 % (37.0-47.0); Hemoglobin 12.0 g/dl (12.0-16.0); Imm Gran Abs Auto 0.04 X10*3/uL (0.00-0.03); Imm Gran Pct Auto 0.5 % (0.0-0.4); Lymphocytes Absolute Auto 2.8 X10*3/uL (1.2-4.9); Mean Corpuscular HGB Conc 31.4 g/dl (31.0-35.0); Mean Corpuscular Hemoglobin 24.5 pg (27.0-33.0); Mean Corpuscular Volume 78.1 fL (80.0-98.0); NRBC Abs Auto 0.000 X10*3/uL (0.0-0.012); NRBC Pct Auto 0.0 /100WBC (0.0-0.2); Platelet Count 325 X10*3/uL (160-400); Red Blood Count 4.89 X10*6/uL (4.20-5.50); White Blood Count 8.7 X10*3/uL (4.8-10.8)
[2025-04-04 12:05] LABS: Hemoglobin A1C 148.5716 umol/L
[2025-04-04 12:06] LABS: Appearance Urine Clear; Glucose Urine UA Negative (Negative); PH 5.5 (5.0-9.0); Specific Gravity - Urine 1.010 (1.005-1.025); UMIC TRIGGER UACC YES
[2025-04-04 13:44] LABS: Alanine Aminotransferase 17 U/L (0-31); Albumin Level 4.7 g/dL (3.5-5.0); Alkaline Phosphatase 98 U/L (39-117); Anion Gap 16 (12-20); Aspartate Amino Transferase 23 U/L (5-31); Blood Urea Nitrogen 13 mg/dL (9-16); Calcium 9.8 mg/dL (8.4-10.2); Carbon Dioxide 23 mmol/L (22-29); Chloride 108 mmol/L (96-108); Estimated Glomerular Filt Rate > 60; Potassium 4.5 mmol/L (3.3-5.1); Sodium 142 mmol/L (135-145); Total Protein 7.9 g/dL (6.5-8.0)
[2025-04-08 15:09] LABS: Lyme Abs Screen <0.90 index
== END 2025-04-04 09:42 | disposition home or self-care (01) ==
LOC: HO.XRAY 09:41
DX: Z00.00 Encounter for general adult medical examination without abnormal findings (principal); E11.65 Type 2 diabetes mellitus with hyperglycemia; F41.9 Anxiety disorder, unspecified; F32.A Depression, unspecified; R06.02 Shortness of breath; R03.0 Elevated blood-pressure reading, without diagnosis of hypertension; E78.00 Pure hypercholesterolemia, unspecified; K21.9 Gastro-esophageal reflux disease without esophagitis; R53.83 Other fatigue; R61 Generalized hyperhidrosis; L98.9 Disorder of the skin and subcutaneous tissue, unspecified; Z13.29 Encounter for screening for other suspected endocrine disorder; Z01.84 Encounter for antibody response examination
CPT/HCPCS: 36415; 71046; 80053; 81001; 81003; 83036; 84443; 85025; 86617; 86618

== ENCOUNTER 2025-04-04 09:41 | Outpatient (AMB) | payer MEDICARE, SELFPAY ==
--- OUTSIDE RECORDS SUMMARY | 2024-04-11 13:57 | XMS_ITS | Encounter Summary ---
Author Organization [employer] Address [address] [place] [address] Care Team Providers Care Butadiene Compressor Operator Name Role Phone Gus Giles MD Primary Care Provider [phone] Encounter Details Date Type Department Care Team (Late st Contact Info) Description 04/11/2024 1:57 PM EDT Hospital Encounter TH [facility]OR[facility]NCOUNTER[facility] ONLY Gus Giles MD [address] [place] [address] Social History Tobacco Use Types Packs/Day Years [...] 9:21 PM Encounter Date: 04/11/2024 Status: Signed Endoscopic Technician: Gus Giles MD (Physician) [facility] 1945 79 y.o. 04/14/24 Pre-Op Dx PRE-OP DIAGNOSIS: Carpal tunnel syndrome, right: Trigger finger Proposed Proc. PROPOSED PROCEDURE: Right endoscopic carpal tunnel release, right middle and ring trigger release PROCEDURE DATE: 05/17/2024 Surg/Endo SURGEON/ENDOSCOPIST: Dr. Salomon Rodríguez [facility] [...] ? ECG 12 lead Gus Giles MD [address] [place] [address] documented in this encounter Plan of Treatment Not on file documented as of this encounter Visit Diagnoses Not on filedocumented in this encounter Care Teams Butadiene Compressor Operator Relationship Specialty Start Date End Date Gus Giles MD PCP - General 02/03/20 documented as of this encounter
[2025-04-04 09:43] VITALS: BP 146/82; PULSE 77; RESP 18; TEMP 36.1; O2SAT 97; BMI 31.7
--- NOTE | 2025-04-04 09:45 | A.OFFVIS_ITS ---
Intake Vital Signs 3 04/04/25 09:43 04/04/25 10:57 Height 5 ft 5 in Weight 190 lb 8 oz BMI 31.7 BP 146/82 H 142/72 H Blood Pressure Location Lt brachial Lt brachial Position Sitting Sitting Respiration 18 Pulse 77 Pulse Source Pulse Oximeter Temp 96.9 F Temp Source Temporal Artery Scan Pulse Oximetry (%) 97 Oxygen Delivery Method Room Air Intake Visit Reasons: AWV RE Chemical Strength Tester Required: No Accompanied by: Self / Same As Patient Allergies naproxen (NAPROXEN) Allergy (Intermediate, Verified 04/04/25 09:47) SWELLING, RASH, rash, swelling rosuvastatin (From CRESTOR) Allergy (Intermediate, Verified 04/04/25 09:47) MUSCLE ACHE simvastatin (SIMVASTATIN) Allergy (Intermediate, Verified 04/04/25 09:47) ITCHING, joint pain, cough Darvon Allergy (Unknown, Verified 04/04/25 09:47) rash, swelling oxybutynin Allergy (Unknown, Verified 04/04/25 09:47) itching From DARVON Allergy (Intermediate, Uncoded 01/31/25 14:58) HIVES,SWELLING Medication List - Last Reconciled 04/04/25 by Carmina Sepulveda PA-C alprazolam 0.5 mg PO DAILY PRN clotrimazole 1% 1 appl topical BID dexlansoprazole (Dexilant) 60 mg PO DAILY famotidine (Pepcid) 20 mg PO DAILY nystatin 1 mL PO DAILY HPI AWV RE 2 HPI0 Details 79-year-old female with past medical his tory of hypercholesterolemia, impaired glucose tolerance, GERD, depression and elevated blood pressure last seen 12/2024 coming in for AWV. In review of the notes patient was seen by GI 01/2025 plan for H.Pylori testing, barium swallow and switch to H2 reza with follow up planned in 3 months. Presenting with an annual wellness examination and evaluation of multiple symptoms. The patient experiences frequent headaches, not daily but more than once a week, prompting increased use of headache relief medications. The patient reports night sweats and chills occurring for about a week, which is a new symptom for her. The patient describes recent episodes of confusion, and forgetting tasks, which have been occurring over the past few weeks. However upon further questioning episodes has been going on since prior to December. The patient reports a burning sensation in her foot, particularly in the toe, which started after noticing a skin lesion. She believes the skin lesion to be a bite of some sort in is located on the lateral aspect of the right ankle. She believes it may be related to a bug bite however does not frequently has been time outside. mammogram: 08/2023 declining additional colonoscopy: declined additional DEXA: 08/2023 eye doctor: yearly [place] vaccines: UTD advanced directives: reports she has HCP form and given [facility] Surgical History S/P colon polypectomy History of colonoscopy History of esophagogastroduodenoscopy (EGD) History of knee replacement H/O hand surgery Family History Father Prostate cancer Mother Breast cancer Brother FH: mental illness Social History Housing: House Housing Other:: Downstairs unit in son's home Alcohol intake: current Alcohol intake frequency: holidays/special occasions only Alcohol type: wine Patient Tobacco Use Status: Former Tobacco user Years Smoked: quit over 40 years e-Cigarette/Vaping Use: Never Used Second Hand Smoke Exposure: Yes service: No Current occupational status: retired Cognitive needs: No Hearing needs: Yes (Hearing aids) Vision needs: Yes (Glasses) Questionnaire Medicare Wellness Checkup What [age] What gender do you identify with?: female During the past 4 weeks, how much have you been bothered by emotional problems such as feeling anxious, depressed, irritable, sad or downhearted, and blue?: q uite a bit During the past 4 weeks, has your physical & emotional health limited your social activities with family, friends, neighbors, or groups?: moderately During the past 4 weeks, how much bodily pain have you generally had?: mild pain During the past 4 weeks, was someone available to help you if you needed & wanted help?: yes, a little During the past 4 weeks, what was the hardest physical activity you could do for at least 2 minutes?: light Can you get to places out of walking distance without help? (For eg., can you travel alone on buses, taxis or drive your car?): Yes Can you go shopping for groceries or clothes without someone's help?: Yes Can you prepare your own meals?: Yes Can you do your housework without help?: Yes Because of any health problems, do you need the help of another person with your personal care needs such as eating, bathing, dressing or getting around the house?: No Can you handle your own money without help?: Yes During the past 4 weeks, how would you rate your health in general?: fair During the past 4 weeks how have things been going for you?: good & bad parts about equal Are you having difficulties driving your car?: no Do you always fasten your seat belt when you are in a car?: yes, usually During past 4 weeks, have you been bothered by the following: never: Teeth or denture problems? and Problems using the telephone?, sometimes: Falling or dizzy when standing up and often: Trouble eating well? and Tiredness or fatigue? Have you fallen 2 or more times in the past year?: No Are you afraid of falling?: No Are you a smoker?: no During the past 4 weeks, how many drinks of wine, beer, or other alcoholic beverages did you have?: no alcohol at all Do you exercise for about 20 minutes 3 or more times a week?: no, I usually do not exercise this much Have you been given information to help with the following?: no: Hazards in your house that might hurt you? and no: Keeping track of your medications? How often do you have trouble taking medicines the way you have been told to take them?: sometimes I take medicine as prescribed How confident are you that you can control & manage most of your health problems?: somewhat confident What is your race?: White PHQ-9 Over the last 2 weeks, how often have you been bothered by any of the following problems? 1. Little interest or pleasure in doing things: more than half the days 2. Feeling down, depressed, or hopeless: more than half the days 3. Trouble falling or staying asleep, or sleeping too much: more than half the days 4. Feeling tired or having little energy: nearly every day 5. Poor appetite or overeating: nearly every day 6. Feeling bad about yourself - or that you are a failure or have let yourself or your family down: nearly every day 7. Trouble concentrating on things, such as reading the newspaper or watching television: several days 8. Moving or speaking so slowly that other people could have noticed. Or the opposite - being so fidgety or restless that you have been moving around a lot more than usual: several days 9. Thoughts that you would be better off or of hurting yourself in some way: several days Total score: 18 Source: Developed by Drs. Marc Dai, Felicita Ren, Andrew Braun and colleagues, with an educational yoli from [employer]. Review of Systems Const Denies body aches, Denies chills, Reports fatigue, Denies fever(s), Reports headache(s), Reports night sweats and Denies poor appetite Eyes Reports no additional complaints ENT Reports dysphagia (occasional ), Denies dizziness, Reports headache(s) and Denies odynophagia Card Denies chest pain, Denies syncope, Denies edema, Denies irregular heart rhythm, Denies lightheadedness and Denies dyspnea Resp Denies cough and Denies dyspnea GI Denies abdominal pain, Denies constipation, Reports dysphagia (occasional ), Reports dyspepsia, Reports heartburn, Denies diarrhea, Reports nausea, Denies odynophagia and Denies vomiting Reports no additional complaints Musc Reports no additional complaints and Denies abnormal gait Skin/Breast Reports system reviewed and no additional complaints, except as documented Neuro Denies abnormal gait, Denies dizziness, Denies syncope and Reports headache(s) Psych Reports no additional complaints Endo Reports fatigue Physical Exam Vital Signs: Last Vital Signs Temp 96.9 F 04/04/25 09:43 Pulse 77 04/04/25 09:43 Resp 18 04/04/25 09:43 BP 142/72 H 04/04/25 10:57 Pulse Ox 97 04/04/25 09:43 Oxygen Delivery Method Room Air 04/04/25 09:43 BMI result Body Mass Index 31.7 Const General: cooperative, healthy appearing, comfortable and no acute distress Orientation/consciousness: patient oriented x3 HEENT Head: Yes normocephalic Ears: hearing grossly normal bilaterally, external ears normal, TM's normal bilaterally and EAC's normal General nose exam: Normal external nose present Face and sinus: Yes normal facial exam and Yes sinuses nontender Mouth: Normal oral and palatal mucosa present and tongue normal Throat: Yes posterior oropharynx normal Eyes General: appearance normal, both eyes and all related structures Conjunctivae: conjunctivae normal Pupils: Equal, round and reactive pupils present EOM: EOMs intact bilaterally and No Nystagmus present Neck Neck: Yes normal visual inspection, Yes full ROM and Yes no lymphadenopathy Chest Chest palpation & inspection: normal inspection of the chest Resp Effort & Inspection: normal respiratory effort Auscultation: clear to auscultation bilaterally, no crackles, no rales, no rhonchi, no wheezes and breath sounds present Cardio Rate: regular rate Rhythm: regular rhythm Peripheral pulses: radial pulses present and dorsalis pedis present GI Inspection: Yes normal to inspection and No Abdominal wall edema Palpation (GI): Soft to palpation, not firm and nontender Auscultation: normal bowel sounds Rectal Exam - Female: deferred General: Yes no CVA tenderness Back/Spine/Pelvis Back: no CVA tenderness Skin General skin exam: no rashes or lesions noted Full body images: 2 1. Small, annular, blanchable skin lesion with scabbing Neuro General: patient oriented x3 Cranial nerves: Yes Equal, round and reactive pupils present, Yes Midline tongue present, Yes Ability to bilaterally elevate shoulders present and No Nystagmus present Gait exam (Neuro): Normal gait present Extrem General: Yes normal to inspection, Yes full ROM, No no pedal edema and No edema Psych Speech and movement: Normal speech and movement present Affect: normal affect Insight: Good insight present (Psych) Judgement: Good judgement present (Psych) Assessment & Plan Assessment & Plan (1) Annual physical exam: Code(s): Z00.00 - Encounter for general adult medical examination without abnormal findings Plan: Patient is refusing colonoscopy and mammogram screening. Otherwise she is up-to-date on all recommended routine screenings and vaccinations for her age. Blood work is up-to-date and has been reviewed with the patient today. (2) Depression: Code(s): F32.A - Depression, unspecified Plan: Patient endorses significant feelings of depression and anxiety she would like to discontinue office sertraline as they can contribute to thoughts of self- harm. She is declining medication management at this time. I did offer the patient many services which were declined however patient is willing to try therapy and referral was placed at last visit btu declining services at this time. (3) Anxiety: Code(s): F41.9 - Anxiety disorder, unspecified Plan: See above (4) Elevated blood pressure reading without diagnosis of hypertension: Code(s): R03.0 - Elevated blood-pressure reading, without diagnosis of hypertension Plan: Avoid salt intake and encourage healthy diet and regular exercise. She reports she is anxious while in the office but at on values has been within normal limits. Recommend patient to keep log of blood pressures and follow up in 2 months. (5) Hypercholesterolemia: Code(s): E78.00 - Pure hypercholesterolemia, unspecified Plan: Avoid foods that are high in cholesterol such as red meat, fried foods, eggs and baked goods. Triglyceride goal of less than 150 and LDL goal of less than 100. Last LDL was 133 plan for repeat blood work. Declining medication management at this time. (6) Diabetes mellitus: Code(s): E11.9 - Type 2 diabetes mellitus without complications Qualifiers: Diabetes mellitus complication status: without complication Diabetes mellitus termite exterminator insulin use: without termite exterminator use Diabetes mellitus type: t ype 2 Qualified Code(s): E11.9 - Type 2 diabetes mellitus without complications Plan: Decrease the amount of carbohydrates such as pasta, bread, rice, and potatoes and limit the amount of sweets. Although fruits are generally healthy they should be eaten in moderation as they are still high in sugar. (7) GERD (gastroesophageal reflux disease): Code(s): K21.9 - Gastro-esophageal reflux disease without esophagitis Qualifiers: Esophagitis presence: esophagitis presence not specified Qualified Code(s): K21.9 - Gastro-esophageal reflux disease without esophagitis Plan: Avoid trigger foods such as citrus, tomato products, soda, caffeine, spicy foods and other foods that may be irritating to your stomach. Avoid laying flat 3-4 hours after eating and elevate the head of the bed 30 degrees to prevent acid from moving into the esophagus. (8) Fatigue: Code(s): R53.83 - Other fatigue Plan: For fatigue and night sweats along with new onset shortness of breath plan to obtain chest x-ray and blood work for further evaluation. (9) Night sweats: Code(s): R61 - Generalized hyperhidrosis Plan: See above (10) Shortness of breath: Code(s): R06.02 - Shortness of breath Plan: See above (11) Skin lesion: Code(s): L98.9 - Disorder of the skin and subcutaneous tissue, unspecified Plan: For the skin lesion I do not believe to related to a tick bite however I will obtain Lyme panel. She will follow up with the big data analytics lead for evaluation of the skin lesion as it is crusting and likely to bleed with manipulation. Plan This note was constructed using voice recognition software. While every effort has been made to ensure accuracy and sugar grinder, still areas may have been included sometimes these areas may affect the content or meeting of the given symptoms. Total time spent caring for the patient today was 45 minutes. This includes time spent before the visit reviewing the chart, time spent during the visit, and time spent after the visit and documentation. Patient was informed and verbally consented to the use of an ambient scribe for clinic note documentation during this visit. Orders: Orders 2 Lyme IgG/IgM w/reflex to WB Today R53.83 - Other fatigue XR chest 2V Today R06.02 - Shortness of breath, R61 - Generalized hyperhidrosis Complete Blood Count Auto Diff Today R53.83 - Other fatigue, R61 - Generalized hyperhidrosis Comprehensive Met. Panel Today R53.83 - Other fatigue, R61 - Generalized hyperhidrosis UA CC w/rflx Micro + Cult Today R35.89 - Other polyuria TSH reflex Free T4 Today R61 - Generalized hyperhidrosis, Z13.29 - Encounter for screening for other suspected endocrine disorder Hemoglobin A1c Today E11.65 - Type 2 diabetes mellitus with hyperglycemia Lipid Panel 1 Week E78.00 - Pure hypercholesterolemia, unspecified Referrals 2 Dermatology Referral L98.9 - Disorder of the skin and subcutaneous tissue, unspecified Medications: Refilled 2 clotrimazole 1% 1 appl topical BID 30 grams 0RF famotidine (Pepcid) 20 mg PO DAILY 30 tabs 3RF K21.9 - Gastro-esophageal reflux disease without esophagitis alprazolam 0.5 mg PO DAILY PRN 20 tabs 0RF anxiety nystatin swish and swallow 1 mL PO DAILY 60 mL 0RF Quality Reporting (2019) Depression/Bipolar (159/160/161/177) PHQ-9: Total score: 18 Coding Level of Care Code Medicare First (G0438) Diagnoses Annual physical exam Z00.00 Depression F32.A Anxiety F41.9 Elevated blood pressure reading without diagnosis of hypertension R03.0 Hypercholesterolemia E78.00 Type 2 diabetes mellitus without complication, without long-term current use of insulin E11.9 Diabetes mellitus complication status: without complication Diabetes mellitus termite exterminator insulin use: without long-term use Diabetes mellitus type: type 2 Gastroesophageal reflux disease, unspecified whether esophagitis present K21.9 Esophagitis presence: esophagitis presence not specified Fatigue R53.83 Night sweats R61 Shortness of breath R06.02 Skin lesion L98.9
--- OUTSIDE RECORDS SUMMARY | 2025-04-04 10:15 | XMS_ITS | Clinical Summary ---
Author Organization [facility] Address [address] [place] [address] Care Team Providers Care It Application Architect Name Role Phone Gus Giles MD Primary Care Provider [phone] Allergies Active Allergy Reactions Criticality Noted Date [...] age to complete this topic Care Teams It Application Architect Relationship Specialty Start Date End Date Gus Giles MD PCP - General Family Medicine 02/03/20
--- OUTSIDE RECORDS SUMMARY | 2025-04-04 10:16 | XMS_ITS | Encounter Summary ---
Author Organization [facility] Address [address] [place] [address] Care Team Providers Care Deicer Repairer Electric Name Role Phone Pcp, No Primary Care Provider Gus Garcia MD Primary Care Provider [phone] Genie Aguilar MD Primary Care Provider [phone] Encounter Details Date Type Department Care Team (Late st Contact Info) Description 02/16/2024 Telephone [facility] [address] [place] [id number] Khurram Rodriguez Social History Tobacco Use Types [...] on filedocumented in this encounter Care Teams Deicer Repairer Electric Relationship Specialty Start Date End Date Pcp, No PCP - General General Medicine 07/14/23 06/19/24 Gus Giles MD [address] [place] [address] [place] [address] PCP - General Family Medicine 06/20/24 12/05/24 Genie Aguilar MD [address] [place] [address] [address] [place], [place] [address] PCP - General Internal Medicine 12/06/24 documented as of this encounter
--- OUTSIDE RECORDS SUMMARY | 2025-04-04 10:16 | XMS_ITS | Clinical Summary ---
Author Organization [facility] Address [address] [place] [address] Care Team Providers Care Air Turning Machine Feeder Name Role Phone Genie Aguilar MD Primary Care Provider [phone] Allergies Active Allergy Reactions Criticality Noted Date Comments Naproxen Rash/Dermatitis Low 11/28/2018 Propoxyphene Swelling Medium 11/28/2018 Nsaids Rash/Dermatitis Low 05/02/2019 Simvastatin Swelling Medium 11/28/2018 Medications ALPRAZolam (XANAX) 0.5 MG tablet Take 0.5 mg by mouth daily as needed for anxiety. Take day of surgery if needed Active dexlansoprazol e (DEXILANT) 60 MG capsule Take 60 mg by mouth nightly. Take night before surgery Active sertraline (ZOLOFT) 100 MG tablet Take 100 mg by mouth nightly. Take night before surgery Active Acetaminophen- Caffeine 500-65 MG Tab Take 1 tablet by mouth as needed. Do not take day of surgery. Active Cholecalcifero l (VITAMIN D3) 25 MCG (1000 UT) Cap Take by mouth. Activ e sodium-potassi um-magnesium sulfates (Suprep Bowel Prep Kit) 17.5-3.13-1.6 GM/177ML Solution solutionIndica tions:History of colon polyps Follow directions provided by physician's office. 354 mL Active Misc Natural Products (NEURIVA PO) Take by mouth daily. 12/13/19 25 Discontinu ed(Patient Discharge) Active Problems Problem Noted Date Diagnosed Date [...] pur e alcohol) less than monthly Comments No Sex and Gender Information Value Date Recorded Sex Assigned at Female 10/11/2024 2:59 PM EDT Legal Sex Female 1:49 PM EDT Gender Identity Female 10/11/2024 2:59 PM EDT Sexual Orientation Heterosexual (straight) 10/11 2:59 PM EDT Last Filed Vital Signs Vital Sign Reading Time Taken Comments Blood Pressure 124/68 10/11/2024 2:12 PM EDT Pulse 67 10/11/2024 2:12 PM EDT Temperature 36.4 C (97.5 F) 07/14/2023 5:33 PM EST Respiratory Rate 18 12/14/2018 1:24 PM EDT Oxygen Saturation 95% 07/14/2023 5:33 PM EST Inhaled Oxygen Concentration - - Weight 86.2 kg (190 lb) 12/06/2024 3:13 PM EDT Height 162.6 cm (5' 4 ) 12/06/2024 3:13 PM EDT Body Mass Index 32.61 12/06/2024 3:13 PM EDT Plan of Treatment Health Maintenance Due Date Last Done Comments Advance Care Planning 1945 Hepatitis C Virus Screening 1945 DTaP/Tdap/Td Vaccines (1 - Tdap) 1965 Pneumococcal Vaccines 50+ (1 of 1 - PCV) 1996 Zoster (Shingles) Vaccine (1 of 2) 1996 DXA Bone Density (Females,Ages 65 and older) 2011 RSV Vaccine 60 years and older and Patients (1 - 1-dose 75+ series) 2021 Influenza Vaccine 01/31/2025 03/22/2024, , 04/13/2023, Additional history exists COVID-19 Vaccine ( season) 2025 04/25/2024, 04/16/2023, 03/26/2022, Additional history exists Hemoglobin A1C Discontinued 03/26/2024, 01/01, 07/05/2022, Additional history exists Hepatitis B Vaccines Aged Out No long er eligible based on patient's age to complete this topic Medical Devices Implanted Type Area Welder Device Identifier Shelf Expiration Date Model / Serial / Lot [id number] [employer] R 40gm Grn - [id number] Implanted:Qty: 2 on 12/13/2018 by Deandre Arndt MD at [facility] Cement Right: Knee [employer] 11/30/2021 [id number] / / [id number] Restrictor Bncmnt 25mm Perez 16-21mm Hip Femoral Plug Sterl - [id number] Implanted:Qty: 1 on 12/13/2018 by Deandre Arndt MD at [facility] Joint Prosthesis Right: Knee [employer] - DIV S 08/21/2028 [id number] / / [id number] Component Patellar Std 9mm 35mm Nxgn Uhmwpe Knee Sterl Blue - [id number] Implanted:Qty: 1 on 12/13/2018 by Deandre Arndt MD at [facility] Joint Prosthesis Right: Knee [employer] [id number] 08/02/2026 [id number] / / [id number] Component Femoral 6 Std Knee Right Crcte Rtn Cmnt Persona - [id number] Implanted:Qty: 1 on 12/13/2018 by Deandre Arndt MD at [facility] Joint Prosthesis Right: Knee [employer] [id number] 05/02/2028 [id number] / / [id number] Insert Articular 3-11 E-F 10mm Knee Right Crcte Rtn Polyethe - [id number] Implanted:Qty: 1 on 12/13/2018 by Deandre Arndt MD at [facility] Joint Prosthesis Right: Knee [employer] [id number] 08/30/2024 [id number] / / [id number] Baseplate Tibial Persona Ntr Tibia 5d E Knee Right Stem - [id number] Implanted:Qty: 1 on 12/13/2018 by Deandre Arndt MD at [facility] Joint Prosthesis Right: Knee [employer] [id number] 08/30/2028 [id number] / / [id number] Insurance MEDICAID OUT OF STATE [facility]NA MGD MEDICARE [facility] MEDICARE MEDICAID OUT OF STATE [facility] Advance Directives * Full Code (Latest Code Status on File) Date Activated Date Inactivated Comments 12/13/2018 11:58 AM * Full Code Date Activated Date Inactivated Comments 12/13/2018 6:45 AM 12/13/2018 11:58 AM Care Teams Air Turning Machine Feeder Relationship Specialty Start Date End Date Jeff, Genie Boo MD [address] [place] [address] [place] [address] PCP - General Internal Medicine 12/06/24
--- OUTSIDE RECORDS SUMMARY | 2025-04-04 10:16 | XMS_ITS | Clinical Summary ---
Author Organization [facility] ity Address [address] [place] [address] Care Team Providers Care National Sales Associate Name Role Phone Gus Giles MD Primary Care Provider [phone] Allergies Active Allergy Reactions Criticality Noted Date [...] Episode of recurrent major d epressive disorder ([facility] V24) 02/03/2020 Gastroesophageal reflux disease 02/03/2020 Generalized anxiety disorder with panic attacks 02/03/2020 Dysphagia 05/02/2019 Arthritis of right knee 12/13/2018 Immunizations Immunization Administration Dates Next Due Influenza Quadravalent, 0.5m [...] Vaccine: 50+ Years (2 of 2 - PPSV23, PCV20, or PCV21) 03/06/2019 01/09/2019 Social Influencers of Health Screening 06/10/2022 Falls Risk Assessment 03/30/2023 03/30/2022 Depression Screening 07/03/2024 03/30/2022 COVID-19 Vaccine ( season) 2025 03/26/2022, 05/18/2021, 09/24/2020, Additional history exists Influenza Vaccine (#1) 2025 , 04/13/2023, 03/26/2022, Additional history exists Breast Cancer Screening 02/07/2026 02/08/20, 08/07/2023, 02/01/2022 Cholesterol Screening (Lipid Panel) 03/26/2029 03/26/2024, 03/26/2024, 01/25/2023, Additional history exists Osteoporosis Screening (Bone Density Screening) 08/07/2033 08/07/2023 DTaP,Tdap,and Td Vaccines (4 - Td or Tdap) 02/28/2034 02/29/2024, 02/06/2023, 01/04/2018 Hepatitis C Screening Completed 03/30/2022 RSV Immunization Adult Patients Completed 03/22/2024 HIB [...] screening for osteoporosis Asymptomatic menopausal state HM DEPRESSION SCREENING Routine 03/30/2022 HM HEPATITIS C SCREENING Routine 03/30/2022 HM FALLS RISK ASSESSMENT [...] on 02/08/2024 10:37 AM. Workstation Name - [id number] Procedure Note Duglas Augustin MD - 04/16/2024 [...] MD on 02/08/2024 10:37AM. Workstation Name - [id number] us Gus Giles MD IMG BI PROCEDURES Final Resul t * BONE DENSITY STUDY (08/07/2023 10:16 AM EST) Anatomical Region Laterality Modality Bone Densitometr y 04/13/2023 9:51 AM EDT Narrative 08/07/2023 11:04 AM EST Bone density study Indication and risk factors: Postmenopausal female. Screening for osteoporosis. No priors. Study acquired on a Bunch densitometer. Imaging of the lumbar spine and [...] forosteoporosis. No priors. Study acquired on a Bunch densitometer. Imaging of thelumbar spine and hip [...] 08/07/2023 11:04 AM.Workstation Name - LOUIE- Result [facility] Gus Giles MD IMG DXA PROCEDURES Final Resu lt * Falls Risk Assessment (03/30/2022) [facility] Falls Risk Assessment abstracted Result [facility] Provider HEALTH MAINTENANCE Final Result * Depression Screening (03/30/2022) [facility] Depression Screening abstracted Result [facility] HEALTH MAINTENANCE Final Result * Hepatitis C Screening (03/30/2022) [facility] Hepatitis C Screening abstracted Result [facility] Provider HEALTH MAINTENANCE Final Result * (ABNORMAL) Lipid panel (03/30/2022) [facility] Triglycerides 101 <=150 mg/dL Cholesterol 211(A) 0 - 200 mg/dL HDL 67 33 - 92 mg/dL LDL Cholesterol 124 50 - 130 mg/dL Blood Venous blood specimen / Unknown Result [facility] Provider LAB BLOOD ORDERABLES Tamia l Result from Last 3 Months or Most Recently Relevant to Health Maintenance Care Teams National Sales Associate Relationship Specialty Start Date End Date Gus Giles MD PCP - General 02/03/20
--- OUTSIDE RECORDS SUMMARY | 2025-04-04 10:16 | XMS_ITS | Encounter Summary ---
Author Organization [facility] Address [address] [place] [address] Care Team Providers Care Regional Sales Leader Name Role Phone Kevon Estrella MD Primary Care Provider Unavailable Pcp, No Primary Care Provider Unavailabl e Gus Giles MD Primary Care Provider [phone] Genie Aguilar MD Primary Care Provider [phone] Encounter Details Date Type Department Care Team (Late st Contact Info) Description 11/15/[address] [facility] 10 [facility] [address] [place] [id number] Giovanna Olmstead, DRAPERY SEAMSTRESS [address] [place] [address] Social History Tobacco Use Types Packs/Day Years [...] on filedocumented in this encounter Care Teams Regional Sales Leader Relationship Specialty Start Date End Date Kevon Estrella MD PCP - General Internal Medicine 11/28/18 02/06/23 Pcp, No PCP - General General Medicine 07/14/23 06/19/24 Gus Giles MD [address] [facility] [address] PCP - General Family Medicine 06/20/24 12/05/24 Genie Aguilar MD [address] [place] [address] [place] [address] PCP - General Internal Medicine 12/06/24 documented as of this encounter
--- OUTSIDE RECORDS SUMMARY | 2025-04-04 10:16 | XMS_ITS | Encounter Summary ---
Author Organization [facility] Address [address] [place] [address] Care Team Providers Care Environmental Engineering Manager Name Role Phone Kevon Estrella MD Primary Care Provider Unavailable Pcp, No Primary Care Provider UnavailGus Malhotra MD Primary Care Provider [phone] Genie Aguilar MD Primary Care Provider [phone] Encounter Details Date Type Department Care Team (Late st Contact Info) Description 11/15/[address] [facility] 1 [facility] [address] [place] [address] Monica Spencer MD [address] [place] [address] Social History Tobacco Use Types Packs/Day Years [...] on file documented as of this encounter Procedures Procedure Name Priority Date/Time Associated Diagnosis Comments PATHOLOGY REPORT 11/15/2019 12:0 0 AM EDT documented in this encounter Results * (REPORT) PATHOLOGY REPORT (11/15/2019 12:00 AM EDT) Monica Spencer MD PATHOLOGY/CYTOLOGY ORD ERABLES Final Result documented in this encounter Visit Diagnoses Not on filedocumented in this encounter Care Teams Environmental Engineering Manager Relationship Specialty Start Date End Date Kevon Estrella MD PCP - General Internal Medicine 11/28/18 02/06/23 Pcp, No PCP - General General Medicine 07/14/23 06/19/24 Gus Giles MD [address] [facility] [place] [address] PCP - General Family Medicine 06/20/24 12/05/24 Genie Aguilar MD [address] [place] [address] [address] [place] [address] PCP - General Internal Medicine 12/06/24 documented as of this encounter
[2025-04-04 10:57] VITALS: BP 142/72
== END 2025-04-04 11:11 | disposition home or self-care (01) ==
LOC: HO.HMCH 09:41
DX: Z00.00 Encounter for general adult medical examination without abnormal findings (principal); F32.A Depression, unspecified; E11.9 Type 2 diabetes mellitus without complications; F41.9 Anxiety disorder, unspecified; R03.0 Elevated blood-pressure reading, without diagnosis of hypertension; E78.00 Pure hypercholesterolemia, unspecified; K21.9 Gastro-esophageal reflux disease without esophagitis; R53.83 Other fatigue; R61 Generalized hyperhidrosis; R06.02 Shortness of breath; L98.9 Disorder of the skin and subcutaneous tissue, unspecified

== ENCOUNTER → 2025-04-04 11:40 | Outpatient (BNV) | payer MEDICARE, SELFPAY | PROVIDERS: Visit Provider Radiology Diagnostic Radiology | DX: R06.02 Shortness of breath (principal) | CPT/HCPCS: 71046 ==

== ENCOUNTER 2025-05-14 11:16 | Outpatient (AMB) | payer MEDICARE, SELFPAY ==
--- OUTSIDE RECORDS SUMMARY | 2024-04-11 12:57 | XMS_ITS | Encounter Summary ---
Author Organization [employer] Address [address] [place] [address] Care Team Providers Care Recruiter Coordinator Name Role Phone Gus Giles MD Primary Care Provider [phone] Encounter Details Date Type Department Care Team (Late st Contact Info) Description 04/11/2024 1:57 PM EDT Hospital Encounter TH H[facility]ORIC [facility] ONLY Gus Giles MD [address] [place] [address] Social History Tobacco Use Types Packs/Day Years Used Date Smoking Tobacco: Former Cigarettes 1 18 0 07/03/1957 - 07/03/1975 Smokeless Tobacco: Never Alcohol Use Standard Drinks/Week Comments Yes 0 (1 standard drink = 0.6 oz pur e alcohol) rarely Comments Unknown Sex and Gender Information Value Date Recorded Sex Assigned at Not on file Legal Sex Female 11:50 PM EST Gender Identity Not on file Sexual Orientation Not on file documented as of this encounter Last Filed Vital Signs Vital Sign Reading Time Taken Comments Blood Pressure 138/80 04/11/2024 2:40 PM EDT Pulse 102 04/11/2024 2:40 PM EDT Temperature - - Respiratory Rate - - Oxygen Saturation - - Inhaled Oxygen Concentration - - Weight 88.2 kg (194 lb 6.4 oz) 04/11/2024 2:40 P M EDT Height 162.6 cm (5' 4 ) 04/11/2024 2:40 PM EDT Body Mass Index 33.37 04/11/2024 2:40 PM EDT documented in this encounter Progress Notes * Gus Giles - 04/11/2024 2:00 PM EDT Images from the original note were not included. 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 04/14/24 Pre-Op Dx PRE-OP DIAGNOSIS: Carpal tunnel syndrome, right: Trigger finger Proposed Proc. PROPOSED PROCEDURE: Right endoscopic carpal tunnel release, right middle and ring trigger release PROCEDURE DATE: 05/17/2024 Surg/Endo SURGEON/ENDOSCOPIST: Dr. Salomon Rodríguez [facility]: [facility] SURGEON/ENDOSCOPIST Anesthetic Preference: MAC Here for prrop clearance for Carpal Tunnel Release & Trigger finger release under MAC anesthesia. Patient Active Problem List Diagnosis SNOMED CT(R) ? Moderate episode of recurrent major depressive disorder (HCC) MODERATE RECURRENT MAJOR DEPRESSION ? Gastroesophageal reflux disease GASTROESOPHAGEAL REFLUX DISEASE ? Generalized anxiety disorder with panic attacks GENERALIZED ANXIETY DISORDER ? Hx of colonic polyp HISTORY OF POLYP OF COLON ? Dysphagia DYSPHAGIA ? Arthritis of right knee ARTHRITIS OF RIGHT KNEE ? Depression DEPRESSIVE DISORDER ? Prediabetes PREDIABETES ? Perianal dermatitis PERIANAL DERMATITIS ? Asthma ASTHMA ? Vitamin D deficiency VITAMIN D DEFICIENCY ? Class 1 obesity OBESE CLASS I ? COVID-19 COVID-19 Past Medical History: Diagnosis Date ? Concussion ? Depression ? Dysphagia ? GERD (gastroesophageal reflux disease) ? panic attacks Past Surgical History: Procedure Laterality Date ? BREAST BIOPSY Left Benign ? ESOPHAGEAL DILATION ? EYE SURGERY ? REPLACEMENT TOTAL KNEE BILATERAL ? VAGOTOMY Family History Problem Relation Age of Onset ? Breast cancer Mother 62 ? Cancer Father prostate ? Osteoporosis Sister ? Cancer Sister tongue ? Cancer Brother liver ? Ovarian cancer Neg Hx Social History Tobacco Use ? Smoking status: Former Packs/day: 1.00 Years: 18.00 Additional pack years: 0.00 Total pack years: 18.00 Types: Cigarettes Quit date: 1976 Years since quittin.8 ? Smokeless tobacco: Never Substance Use Topics ? Alcohol use: Yes Comment: rarely Current Outpatient Medications Medication Sig Dispense Refill ? ALPRAZolam (XANAX) 0.5 MG tablet TAKE 1 TABLET BY MOUTH EVERY DAY NEEDED 30 tablet 0 ? Cholecalciferol (Vitamin D) 50 MCG (1999 UT) CAPS Take 1 capsule by mouth daily. 100 capsule 3 ? Dexilant 60 MG capsule Take 1 capsule (60 mg total) by mouth daily. 90 capsule 1 No current facility-administered medications for this visit. Allergies Allergen Reactions ? Propoxyphene Swelling ? Simvastatin Swelling ? Naproxen Rash ? Nsaids Rash Review of Systems Constitutional: Negative for chills, fatigue, fever and unexpected weight change. HENT: Positive for hearing loss. Negative for ear pain, rhinorrhea and sore throat. Eyes: Positive for visual disturbance (due for eye exam in Jul) . Negative for pain. Respiratory: Negative for cough and shortness of breath. Cardiovascular: Negative for chest pain and palpitations. Gastrointestinal: Positive for constipation (alternates) and diarrhea (alternates) . Negative for abdominal pain. Endocrine: Negative for cold intolerance, heat intolerance, polydipsia and polyuria. Genitourinary: Positive for frequency. Negative for difficulty urinating and urgency. Musculoskeletal: Negative for arthralgias, back pain, joint swelling, myalgias and neck pain. Skin: Negative for rash. Allergic/Immunologic: Negative for environmental allergies. Neurological: Positive for headaches. Negative for dizziness. Hematological: Negative for adenopathy. Does not bruise/bleed easily. Psychiatric/Behavioral: Positive for sleep disturbance. Negative for dysphoric mood. The patient isnervous/anxious. Vitals BP 138/80 Pulse 102 Temp 97.8 ??F (36.6 ??C) Resp 16 Ht 5' 4 (1.626 m) Wt 88.2 kg (194 lb 6.4 oz) SpO2 97% BMI 33.37 kg/m?? Wt Readings from Last 3 Encounters: 04/11/24 88.2 kg (194 lb 6.4 oz) 10/17/23 89.4 kg (197 lb) 09/01/23 87.1 kg (192 lb) Physical Exam Vitals reviewed. Constitutional: General: She is not in acute distress. Appearance: She is well-developed. HENT: Head: Normocephalic and atraumatic. Right Ear: Hearing, tympanic membrane, ear canal and external ear normal. Left Ear: Hearing, tympanic membrane, ear canal and external ear normal. Nose: Nose normal. No mucosal edema or rhinorrhea. Mouth/Throat: Mouth: Mucous membranes are moist. Pharynx: Oropharynx is clear. No oropharyngeal exudate or posterior oropharyngeal erythema. Eyes: General: No scleral icterus. Right eye: No discharge. Left eye: No discharge. Conjunctiva/sclera: Conjunctivae normal. Pupils: Pupils are equal, round, and reactive to light. Neck: Thyroid: No thyromegaly. Vascular: No JVD. Cardiovascular : Rate and Rhythm: Normal rate and regular rhythm. Pulses: Dorsalis pedis pulses are 2+ on the right side and 2+ on the left side. Heart sounds: Normal heart sounds. No murmur heard. No friction rub. No gallop. Pulmonary: Effort: Pulmonary effort is normal. No respiratory distress. Breath sounds: Normal breath sounds. No wheezing, rhonchi or rales. Abdominal: General: Bowel sounds are normal. There is no distension. Palpations: Abdomen is soft. There is no mass. Tenderness: There is no abdominal tenderness. There is no right CVA tenderness, left CVA tenderness, guarding or rebound. Hernia: No hernia is present. Musculoskeletal: General: No deformity. Cervical back: Neck supple. Right lower leg: No edema. Left lower leg: No edema. Lymphadenopathy: Cervical: No cervical adenopathy. Skin : General: Skin is warm and dry. Findings: No rash. Comments: Benign appearing moles Neurological: Mental Status: She is alert and oriented to person, place, and time. Cranial Nerves: No cranial nerve deficit. Sensory: No sensory deficit. Motor: No weakness, tremor or abnormal muscle tone. Gait: Gait normal. Psychiatric: Mood and Affect: Mood normal. Behavior: Behavior normal. Thought Content: Thought content normal. Judgment: Judgment normal. Recent Results (from the past hour(s)) ECG 12 lead Collection Time: 04/11/24 12:00 AM Impression NSR @ 77 bpm, nml axis, no ST-T abnmls - OK ECG 12 lead Collection Time: 09/01/23 12:00 AM Impression NSR @ 72 bpm, nml axis, no ST-T abnmls - OK Lab Results Component Value Date WBC 7.5 03/26/2024 RBC 4.83 03/26/2024 MCV 78.8 03/26/2024 MCH 25.8 03/26/2024 MCHC 32.7 03/26/2024 RDW 17.7 (H) 03/26/2024 PLTCOUNT 269 03/26/2024 MPV 9.3 03/26/2024 NEUTROPHILS 61.3 03/26/2024 LYMPHOCYTES 27.0 03/26/2024 MONOCYTES 5.2 03/10/2020 EOSINOPHILS 4.0 03/26/2024 BASOPHILS 0.9 03/26/2024 NEUTROPHABSO 4.6 03/26/2024 LYMPHOCYABSO 2.0 03/26/2024 MONOCYTABSOL 0.5 03/26/2024 EOSINOPHIABS 0.3 03/26/2024 BASOPHILSABS 0.1 03/26/2024 Lab Results Component Value Date BUN 12 03/26/2024 CREATININE 1.1 (H) 03/26/2024 NA 141 03/26/2024 K 4.5 03/26/2024 CL 104 03/26/2024 CO2 27 03/26/2024 GLUCFASTING 149 (H) 03/26/2024 CALCIUM 9.7 03/26/2024 ALBUMIN 4.3 03/26/2024 ALKPHOS 91 03/26/2024 AST 16 03/26/2024 ALT 12 03/26/2024 LABBILI 0.4 03/26/2024 Lab Results Component Value Date CHOL 226 (H) 03/26/2024 HDL 80 03/26/2024 LDLCHOL 139 (H) 03/10/2020 LDLCALC 125 03/26/2024 TRIGLYCERIDE 107 03/26/2024 CHOLHDLCRAT 3.1 03/10/2020 Lab Results Component Value Date HGBA1C 6.2 (H) 03/26/2024 Assessment/Plan: Rachelle was seen today for pre-op exam. Diagnoses and all orders for this visit: Preoperative examination Comments: EKG reassuring and recent labs reviewed and acceptable. Patient is medically cleared for surgery and anesthesia Orders: - ECG 12 lead Carpal tunnel syndrome on right Trigger index finger of right hand Gastroesophageal reflux disease without esophagitis Comments: Well-controlled on PPI Generalized anxiety disorder with panic attacks Comments: Stable and uses BZD sparingly. Orders Placed This Encounter Procedures ? ECG 12 lead Gus Giles MD [address] [place] [address] documented in this encounter Plan of Treatment Not on file documented as of this encounter Visit Diagnoses Not on filedocumented in this encounter Care Teams Recruiter Coordinator Relationship Specialty Start Date End Date Gus Giles MD PCP - General 02/03/20 documented as of this encounter
[2025-05-14 11:26] VITALS: BP 160/92; PULSE 102; TEMP 36.3; O2SAT 98; BMI 31.5
--- NOTE | 2025-05-14 11:26 | A.OFFPC_ITS ---
Vital Signs 05/14/25 11:26 05/14/25 12:53 Height 5 ft 5 in Weight 189 lb 6 oz BMI 31.5 BP 160/92 H 138/78 Blood Pressure Location Lt brachial Lt brachial Position Sitting Sitting Pulse 102 H Pulse Source Pulse Oximeter Temp 97.3 F Temp Source Temporal Artery Scan Pulse Oximetry (%) 98 Oxygen Delivery Method Room Air Intake Visit Reasons: Sore throat Senior Interactive Developer Required: No Accompanied by: Self / Same As Patient Allergies naproxen (NAPROXEN) Allergy (Intermediate, Verified 05/14/25 11:27) SWELLING, RASH, rash, swelling rosuvastatin (From CRESTOR) Allergy (Intermediate, Verified 05/14/25 11:27) MUSCLE ACHE simvastatin (SIMVASTATIN) Allergy (Intermediate, Verified 05/14/25 11:27) ITCHING, joint pain, cough Darvon Allergy (Unknown, Verified 05/14/25 11:27) rash, swelling oxybutynin Allergy (Unknown, Verified 05/14/25 11:27) itching From DARVON Allergy (Intermediate, Uncoded 01/31/25 14:58) HIVES,SWELLING Medication List - Last Reconciled 05/14/25 by Carmina Sepulveda PA-C alprazolam 0.5 mg PO DAILY PRN clotrimazole 1% 1 appl topical BID dexlansoprazole (Dexilant) 60 mg PO DAILY famotidine (Pepcid) 20 mg PO DAILY nystatin 1 mL PO DAILY Tobacco use date assessed: 05/14/25 Fall risk assessment: No Falls in past year Last assessed Fall Risk: 01/27/25 Dental Screening Dental Screen Date: 05/14/25 Did you have a dental visit in the last 12 months?: Yes Did you have a dental problem in the last 6 months where you did not have access to dental care?: No Was dental information given to patient?: Patient has dentist HPI Sore throat HPI Details 79-year-old female with past medical his tory of hypercholesterolemia, impaired glucose tolerance, GERD, depression and elevated blood pressure last seen 04/2025 coming in for acute problem. Patient tells us today she has been having a mild cough which has been ongoing for about a week and has been worsening over the duration of the week. She has been feeling feverish and having body aches and does not identify any sick contacts. She has a mild sore throat and painful swallowing denies dysphagia. She attributes her symptoms to stress regarding her granddaughter as of lately. [facility] Surgical History S/P colon polypectomy History of colonoscopy History of esophagogastroduodenoscopy (EGD) History of knee replacement H/O hand surgery Family History Father Prostate cancer Mother Breast cancer Brother FH: mental illness Social History Housing: House Housing Other:: Downstairs unit in son's home Alcohol intake: current Alcohol intake frequency: holidays/special occasions only Alcohol type: wine Patient Tobacco Use Status: Former Tobacco user Years Smoked: quit over 40 years e-Cigarette/Vaping Use: Never Used Second Hand Smoke Exposure: Yes service: No Current occupational status: retired Cognitive needs: No Hearing needs: Yes (Hearing aids) Vision needs: Yes (Glasses) Female Reproductive History Menstrual control method: none Questionnaire PHQ-9 Over the last 2 weeks, how often have you been bothered by any of the following problems? 1. Little interest or pleasure in doing things: more than half the days 2. Feeling down, depressed, or hopeless: more than half the days 3. Trouble falling or staying asleep, or sleeping too much: more than half the days 4. Feeling tired or having little energy: nearly every day 5. Poor appetite or overeating: nearly every day 6. Feeling bad about yourself - or that you are a failure or have let yourself or your family down: nearly every day 7. Trouble concentrating on things, such as reading the newspaper or watching television: several days 8. Moving or speaking so slowly that other people could have noticed. Or the opposite - being so fidgety or restless that you have been moving around a lot more than usual: several days 9. Thoughts that you would be better off or of hurting yourself in some way: several days Total score: 18 Depression Screening Interpretation: Positive Depression Screening Done: Yes 51677 - PHQ-9 Billing: Yes (Pt stated her Granddaughter that she raised went missing. ) Source: Developed by Drs. Marc Dai, Andrew Goodrich and colleagues, with an educational yoli from [employer]. Thrive Questionnaire Date Thrive assessed: 11/13/24 I am a: Patient What is your living situation today?: I have a steady place to live Within the past 12 months, did the food you bought not last and you didn't have the money to get more?: I choose not to answer this question Within the past 12 months, did you worry whether your food would run out before you got money to buy more?: I choose not to answer this question Do you have trouble paying for medicines?: I choose not to answer this question Do you have trouble getting transportation to medical appointments?: I choose not to answer this question Do you have trouble paying your heating and electricity bill?: I choose not to answer this question Do you have trouble taking care of your child, family member or friend?: I choose not to answer this question Do you have trouble with day-to-day activities such as bathing, preparing meals, shopping, managing finances, etc.?: No Are you currently unemployed and looking for a job?: No Are you interested in more education?: No Currently or been in a relationship where the following occur: No concerns reported THRIVE Score: 0 AUDIT C Alcohol Use Questionnaire (AUDIT-C) 1. How often do you have a drink containing alcohol?: Never Total Score: 0 FAUSTO-7 AMB Questionnaire FAUSTO-7 Date FAUSTO - 7 assessed: 01/27/25 Feeling nervous, anxious, or on edge: 3 = Nearly every day Not being able to stop or control worryin = Nearly every day Worrying too much about different things: 3 = Nearly every day Trouble relaxin = Nearly every day Being so restless that it is hard to sit still: 3 = Nearly every day Becoming easily annoyed or irritable: 3 = Nearly every day Feeling afraid as if something awful might happen: 3 = Nearly every day Total FAUSTO-7 score (0-4 normal; 5-9 mild; 10-14 moderate; 15-21 severe): 21 Source: Developed by Drs. Marc Dai, Andrew Goodrich and colleagues, with an educational yoli from [employer]. Review of Systems Const Reports body aches, Reports chills, Denies fever(s), Denies headache(s) and Reports lethargy Eyes Reports no additional complaints ENT Denies dysphagia, Denies dizziness, Denies headache(s), Reports odynophagia and Reports sore throat Card Denies chest pain, Denies lightheadedness and Denies dyspnea Resp Reports cough and Denies dyspnea GI Denies abdominal pain, Denies dysphagia, Denies nausea, Reports odynophagia and Denies vomiting Reports no additional complaints Musc Reports no additional complaints and Denies abnormal gait Skin/Breast Reports system reviewed and no additional complaints, except as documented Neuro Denies abnormal gait, Denies dizziness and Denies headache(s) Psych Reports no additional complaints Physical exam (Primary Care) Vital Signs: Last Vital Signs Temp 97.3 F 05/14/25 11:26 Pulse 102 H 05/14/25 11:26 BP 160/92 H 05/14/25 11:26 Pulse Ox 98 05/14/25 11:26 Oxygen Delivery Method Room Air 05/14/25 11:26 BMI result Body Mass Index 31.5 Tobacco/Smoking Status: Tobacco use Status Tobacco use date assessed 05/14/25 05/14/25 11:37 Patient Tobacco Use Status Former Tobacco user 05/14/25 11:37 e-Cigarette/Vaping Use Never Used 05/14/25 11:37 PHQ-9: PHQ-9 Score PHQ-9: Total score 18 05/14/25 11:41 Depression Screening Interpretation: Positive Thrive Assessment: Date of Thrive Assessment Date Thrive assessed 11/13/24 05/14/25 11:37 Currently or been in a relationship where the following occur: No concerns reported Const General: cooperative, comfortable and no acute distress Orientation/consciousness: patient oriented x3 HENMT Head: Yes normocephalic Ears: hearing grossly normal bilaterally General nose exam: Normal external nose present Mouth: Normal oral and palatal mucosa present and oropharynx normal Throat: Yes posterior oropharynx normal Eyes General: appearance normal, both eyes and all related structures Conjunctivae: conjunctivae normal Neck Neck: Yes full ROM and Yes no lymphadenopathy Resp Effort & Inspection: normal respiratory effort Auscultation: clear to auscultation bilaterally, no crackles, no rales, no rhonchi and no wheezes Cardio Rate: regular rate Rhythm: regular rhythm Skin General skin exam: no rashes or lesions noted Neuro General: patient oriented x3 Gait exam (Neuro): Normal gait present Extrem General: Yes normal to inspection, Yes full ROM and No edema Psych Affect: normal affect Attitude: cooperative Insight: Good insight present (Psych) Judgement: Good judgement present (Psych) Coding Level of Care Code Est Pt Level 3 (18763) Diagnoses Cough R05.9 Depression F32.A Additional Codes PHQ-9 - 96767 - PHQ-9 Billing: Yes ([id number]) Assessment & Plan Assessment & Plan (1) Cough: Code(s): R05.9 - Cough, unspecified Category: Medical Plan: For the cough plan to obtain viral testing as well as chest x-ray for further evaluation. Patient was sent benzonatate to be used as needed for the cough. Discussed red flag symptoms when to present for re-evaluation. (2) Depression: Code(s): F32.A - Depression, unspecified Category: Medical Plan: Regarding the patient's mental health and message was sent to community navigation as far as counseling goes. She will reach out if she needs anything additional. Plan This note was constructed using voice recognition software. While every effort has been made to ensure accuracy and data warehousing engineer, still areas may have been included sometimes these areas may affect the content or meeting of the given symptoms. Total time spent caring for the patient today was 20 minutes. This includes time spent before the visit reviewing the chart, time spent during the visit, and time spent after the visit and documentation. Orders: Orders XR chest 2V Today R05.9 - Cough, unspecified SARS-CoV2/FLU/RSV Today R09.89 - Other specified symptoms and signs involving the circulatory and respiratory systems Strep A Nucleic Acid Today J02.9 - Acute pharyngitis, unspecified Medications: New benzonatate 200 mg PO BID PRN 20 caps 0RF cough
[2025-05-14 12:53] VITALS: BP 138/78
--- OUTSIDE RECORDS SUMMARY | 2025-05-14 13:59 | XMS_ITS | Encounter Summary ---
Author Organization [facility] Address [address] [place] [address] Care Team Providers Care Stone And Plate Preparer Apprentice Name Role Phone Kevon Estrella MD Primary Care Provider Unavailable Pcp, No Primary Care Provider UnavailGus Malhotra MD Primary Care Provider [phone] Genie Aguilar MD Primary Care Provider [phone] Encounter Details Date Type Department Care Team (Late st Contact Info) Description 11/15/[address] [facility] 1 [facility] [address] [place] [address] Monica Spencer MD [address] [place] [address] Social History Tobacco Use Types Packs/Day Years [...] on filedocumented in this encounter Care Teams Stone And Plate Preparer Apprentice Relationship Specialty Start Date End Date Kevon Estrella MD PCP - General Internal Medicine 11/28/18 02/06/23 Pcp, No PCP - General General Medicine 07/14/23 06/19/24 Gus Giles MD [address] [facility] [place] [address] PCP - General Family Medicine 06/20/24 12/05/24 Genie Aguilar MD [address] [place] [address] [address] [place] [address] PCP - General Internal Medicine 12/06/24 documented as of this encounter
--- OUTSIDE RECORDS SUMMARY | 2025-05-14 13:59 | XMS_ITS | Clinical Summary ---
Author Organization [facility] Address [address] [place] [address] Care Team Providers Care Box Machine Operator Name Role Phone Genie Aguilar MD Primary Care Provider [phone] Allergies Active Allergy Reactions Criticality Noted Date [...] (Females,Ages 65 and older) 2011 RSV Vaccine 50 years and older and Patients (1 - 1-dose 75+ series) 2021 Influenza Vaccine 01/31/2025 03/22/2024, , 04/13/2023, Additional history exists COVID-19 Vaccine ( season) 2025 04/25/2024, 04/16/2023, 03/26/2022, Additional history exists Hemoglobin A1C Discontinued 03/26/2024, 01/01, 07/05/2022, Additional history exists Hepatitis B Vaccines Aged Out No long er eligible based on patient's age to complete this topic Medical Devices Implanted Type Area Bath Mixer Device Identifier Shelf Expiration Date Model / Serial / Lot [id number] Cement [employer] R 40gm Grn - [id number] Implanted:Qty: 2 on 12/13/2018 by Deandre Arndt MD at [facility] Cement Right: Knee [employer] 11/30/2021 [id number] / / [id number] Restrictor Bncmnt 25mm Perez 16-21mm Hip Femoral Plug Sterl - [id number] Implanted:Qty: 1 on 12/13/2018 by Deandre Arndt MD at [facility] Joint Prosthesis Right: Knee [employer] - DIV S 08/21/2028 [id number] / / [id number] Component Patellar Std 9mm 35mm Nxgn Uhmwpe Knee Sterl Blue - [id number] Implanted:Qty: 1 on 12/13/2018 by Deandre Arndt MD at [facility] Joint Prosthesis Right: Knee [employer] [id number] 08/02/2026 [id number] / / [id number] Component Femoral 6 Std Knee Right Crcte Rtn Cmnt Persona - [id number] Implanted:Qty: 1 on 12/13/2018 by Deandre Arndt MD at [facility] Joint Prosthesis Right: Knee [employer] [id number] 05/02/2028 [id number] / / [id number] Insert Articular 3-11 E-F 10mm Knee Right Crcte Rtn Polyethe - [id number] Implanted:Qty: 1 on 12/13/2018 by Deandre Arndt MD at [facility] Joint Prosthesis Right: Knee [employer] [id number] 08/30/2024 [id number] / / [id number] Baseplate Tibial Persona Ntr Tibia 5d E Knee Right Stem - [id number] Implanted:Qty: 1 on 12/13/2018 by Deandre Arndt MD at [facility] Joint Prosthesis Right: Knee [employer] [id number] 08/30/2028 [id number] / / [id number] Insurance MEDICAID OUT OF STATE [facility] [place] MEDICARE [facility] MEDICARE MEDICAID OUT OF STATE [facility] Advance Directives * Full Code (Latest Code Status on File) Date Activated Date Inactivated Comments 12/13/2018 11:58 AM * Full Code Date Activated Date Inactivated Comments 12/13/2018 6:45 AM 12/13/2018 11:58 AM Care Teams Box Machine Operator Relationship Specialty Start Date End Date Jeff, Genie Boo MD [address] [place] [address] [place] [address] PCP - General Internal Medicine 12/06/24
--- OUTSIDE RECORDS SUMMARY | 2025-05-14 13:59 | XMS_ITS | Encounter Summary ---
Author Organization [facility] Address [address] [place] [address] Care Team Providers Care Anthropological Linguist Name Role Phone Kevon Estrella MD Primary Care Provider Unavailable Pcp, No Primary Care Provider Unavailabl e Gus Giles MD Primary Care Provider [phone] Genie Aguilar MD Primary Care Provider [phone] Encounter Details Date Type Department Care Team (Late st Contact Info) Description 11/15/[address] [facility] 10 [facility] [address] [place] [phone] Giovanna Olmstead, SEASONAL CLERK [address] [place] [address] Social History Tobacco Use Types Packs/Day Years [...] on filedocumented in this encounter Care Teams Anthropological Linguist Relationship Specialty Start Date End Date Kevon Estrella MD PCP - General Internal Medicine 11/28/18 02/06/23 Pcp, No PCP - General General Medicine 07/14/23 06/19/24 Gus Giles MD [address] [facility] [place] [place] [address] PCP - General Family Medicine 06/20/24 12/05/24 Genie Aguilar MD [address] [place] [address] [place] [address] PCP - General Internal Medicine 12/06/24 documented as of this encounter
--- OUTSIDE RECORDS SUMMARY | 2025-05-14 13:59 | XMS_ITS | Clinical Summary ---
Author Organization [facility] ity Address [address] [place] [address] Care Team Providers Care Sand Caster Name Role Phone Gus Giles MD Primary Care Provider [phone] Allergies Active Allergy Reactions Criticality Noted Date [...] Episode of recurrent major d epressive disorder ([facility] V24) 02/03/2020 Gastroesophageal reflux disease 02/03/2020 Generalized [...] on 02/08/2024 10:37 AM. Workstation Name - [id number] Procedure Note Duglas Augustin MD - 04/16/2024 [...] MD on 02/08/2024 10:37AM. Workstation Name - [id number] us Gus Giles MD IMG BI PROCEDURES Final Resul t * BONE DENSITY STUDY (08/07/2023 10:16 AM EST) Anatomical Region Laterality Modality Bone Densitometr y 04/13/2023 9:51 AM EDT Narrative 08/07/2023 11:04 AM EST Bone density study Indication and risk factors: Postmenopausal female. Screening for osteoporosis. No priors. Study acquired on a [employer] TV densitometer. Imaging of the lumbar spine and [...] forosteoporosis. No priors. Study acquired on a [employer] TV densitometer. Imaging of thelumbar spine and hip [...] 08/07/2023 11:04 AM.Workstation Name - [id number] [facility] Gus Giles MD IMG DXA PROCEDURES Final Resu lt * Falls Risk Assessment (03/30/2022) [facility] Falls Risk Assessment abstracted Result [facility] Provider HEALTH MAINTENANCE Final Result * Depression Screening (03/30/2022) [facility] Depression Screening abstracted Result [facility] HEALTH MAINTENANCE Final Result * Hepatitis C Screening (03/30/2022) [facility] Hepatitis C Screening abstracted Result [facility] Provider HEALTH MAINTENANCE Final Result * (ABNORMAL) Lipid panel (03/30/2022) [facility] Triglycerides 101 <=150 mg/dL Cholesterol 211(A) 0 - 200 mg/dL HDL 67 33 - 92 mg/dL LDL Cholesterol 124 50 - 130 mg/dL Blood Venous blood specimen / Unknown Result [facility] Provider LAB BLOOD ORDERABLES Tamia l Result from Last 3 Months or Most Recently Relevant to Health Maintenance Care Teams Sand Caster Relationship Specialty Start Date End Date Gus Giles MD PCP - General 02/03/20
--- OUTSIDE RECORDS SUMMARY | 2025-05-14 13:59 | XMS_ITS | Clinical Summary ---
Author Organization [facility] Address [address] [place] [address] Care Team Providers Care Decorating Equipment Setter Name Role Phone Gus Giles MD Primary Care Provider [phone] Allergies Active Allergy Reactions Criticality Noted Date [...] (2 of 2 - PPSV23 or PCV20) 01/10/2020 01/09/2019 BMI Counseling 04/13/2024 04/13/2023, 03/04, 09/09/2020, [...] age to complete this topic Care Teams Decorating Equipment Setter Relationship Specialty Start Date End Date Gus Giles MD PCP - General Family Medicine 02/03/20
== END 2025-05-14 12:00 | disposition home or self-care (01) ==
LOC: HO.HMCH 11:17
DX: R05.9 Cough, unspecified (principal); F32.A Depression, unspecified

== ENCOUNTER 2025-05-14 11:16 | Outpatient (REF) | payer MEDICARE, SELFPAY ==
--- NOTE | ~2025-05-14 | XR_ITS ---
EXAMINATION: XR CHEST CLINICAL INFORMATION: R05.9 - Cough, unspecified COMPARISON: April 04, 2025 TECHNIQUE: PA and lateral views FINDINGS: Hyperinflated lungs. No consolidation, pleural effusion or pneumothorax. Cardiomediastinal silhouette size is normal. Calcified plaque thoracic aortic arch. Multilevel thoracolumbar spondylosis. S-shaped curvature of the thoracolumbar spine. Osteopenia versus osteoporosis. Vascular clips at the gastroesophageal junction region. XR/XR chest 2V IMPRESSION: Hyperinflated lungs without acute airspace disease. Electronically signed by: Singh Castelan MD 05/14/2025 01:00 PM EST
[2025-05-14 13:17] LABS: Resp Syncy Virus RNA Qual PCR NEGATIVE (Negative); SARS COV2 PCR INHOUSE NEGATIVE (Negative)
[2025-05-14 14:43] LABS: Appearance Urine Cloudy; Glucose Urine UA Negative (Negative); PH 5.5 (5.0-9.0); Specific Gravity - Urine 1.025 (1.005-1.025); UMIC TRIGGER UACC YES
[2025-05-14 14:49] LABS: UACC Culture Trigger YES
[2025-05-14 14:53] LABS: Cholesterol 195 mg/dL (<200); HDL Cholesterol 64 mg/dL (>40); Triglycerides 113 mg/dL (<150)
== END 2025-05-14 11:17 | disposition home or self-care (01) ==
LOC: HO.XRAY 11:16
DX: K21.9 Gastro-esophageal reflux disease without esophagitis (principal); E78.00 Pure hypercholesterolemia, unspecified; R09.89 Other specified symptoms and signs involving the circulatory and respiratory systems; R05.9 Cough, unspecified; F32.A Depression, unspecified; R35.89 Other polyuria; J02.9 Acute pharyngitis, unspecified
CPT/HCPCS: 71046; 80061; 81001; 87086; 87637; 96127; 99212

== ENCOUNTER → 2025-05-14 12:41 | Outpatient (BNV) | payer MEDICARE, SELFPAY | PROVIDERS: Visit Provider Radiology Diagnostic Radiology | DX: J98.4 Other disorders of lung (principal) | CPT/HCPCS: 71046 ==

== ENCOUNTER 2025-06-11 08:53 | Outpatient (AMB) | payer MEDICARE, SELFPAY ==
--- NOTE | 2025-06-11 09:02 | MHC.PC.OV ---
Vital Signs 06/11/25 09:09 06/11/25 09:34 Height 5 ft 5 in Weight 191 lb 4 oz BMI 31.8 BP 150/80 H 138/70 Blood Pressure Location Lt brachial Lt brachial Position Sitting Sitting Pulse 80 Pulse Source Pulse Oximeter Temp 96.8 F Temp Source Temporal Artery Scan Pulse Oximetry (%) 99 Oxygen Delivery Method Room Air Intake Visit Reasons: 2 month f/u Intake Note: Patient is here to follow up on DM. 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 Specialist Required: No Planner Intern: Not Required per policy Accompanied by: Self / Same As Patient Allergies naproxen (NAPROXEN) Allergy (Intermediate, Verified 06/11/25 09:14) SWELLING, RASH, rash, swelling rosuvastatin (From CRESTOR) Allergy (Intermediate, Verified 06/11/25 09:14) MUSCLE ACHE simvastatin (SIMVASTATIN) Allergy (Intermediate, Verified 06/11/25 09:14) ITCHING, joint pain, cough Darvon Allergy (Unknown, Verified 06/11/25 09:14) rash, swelling oxybutynin Allergy (Unknown, Verified 06/11/25 09:14) itching From DARVON Allergy (Intermediate, Uncoded 06/11/25 09:14) HIVES,SWELLING Medication List - Last Reconciled 06/11/25 by Carmina Sepulveda PA-C alprazolam 0.5 mg PO DAILY PRN benzonatate 200 mg PO BID PRN clotrimazole 1% 1 appl topical BID famotidine 20 mg PO BID Tobacco use date assessed: 06/11/25 Fall risk assessment: No Falls in past year Last assessed Fall Risk: 06/11/25 Dental Screening Dental Screen Date: 05/14/25 HPI 2 month f/u HPI Details 80-year-old female with past medical history of hypercholesterolemia, impaired glucose tolerance, GERD, depression and elevated blood pressure last seen 05/2025 coming in for follow up. Presenting for management of chronic cough, medication refills, and new concerns of depression. She reports a recurrent cough that had initially resolved after antibiotics but returned about two weeks ago. The cough is non-productive and primarily occurs in the morning. She endorses a history of acid reflux, for which she takes famotidine in the morning. The patient has a history of dysphagia and reports recent episodes of pills getting stuck in her throat. She has a history of a prior esophageal procedure where her esophagus was expanded a few years ago. A barium swallow was previously ordered by a GI specialist in January, but it was not completed. The patient requests treatment for depression, stating she cries frequently and feels easily irritated. She has a history of taking sertraline, which was stopped due to suicidal thoughts. Regarding her blood pressure, she reports home readings have been good, ranging from 130/70 mmHg to a high of 138 mmHg systolic, with the diastolic number never exceeding 70 mmHg. [facility] Surgical History S/P colon polypectomy History of colonoscopy History of esophagogastroduodenoscopy (EGD) History of knee replacement H/O hand surgery Family History Father Prostate cancer Mother Breast cancer Brother FH: mental illness Social History Housing: House Housing Other:: Downstairs unit in son's home Alcohol intake: current Alcohol intake frequency: holidays/special occasions only Alcohol type: wine Patient Tobacco Use Status: Former Tobacco user Years Smoked: quit over 40 years e-Cigarette/Vaping Use: Never Used Second Hand Smoke Exposure: Yes service: No Current occupational status: retired Cognitive needs: No Hearing needs: Yes (Hearing aids) Vision needs: Yes (Glasses) Questionnaire Thrive Questionnaire Date Thrive assessed: 11/13/24 I am a: Patient What is your living situation today?: I have a steady place to live Within the past 12 months, did the food you bought not last and you didn't have the money to get more?: I choose not to answer this question Within the past 12 months, did you worry whether your food would run out before you got money to buy more?: I choose not to answer this question Do you have trouble paying for medicines?: I choose not to answer this question Do you have trouble getting transportation to medical appointments?: I choose not to answer this question Do you have trouble paying your heating and electricity bill?: I choose not to answer this question Do you have trouble taking care of your child, family member or friend?: I choose not to answer this question Do you have trouble with day-to-day activities such as bathing, preparing meals, shopping, managing finances, etc.?: No Are you currently unemployed and looking for a job?: No Are you interested in more education?: No Currently or been in a relationship where the following occur: No concerns reported THRIVE Score: 0 FAUSTO-7 AMB Questionnaire FAUSTO-7 Date FAUSTO - 7 assessed: 01/27/25 Source: Developed by Drs. Marc Dai, Felicita Ren, Andrew Braun and colleagues, with an educational yoli from [employer]. Review of Systems Const Denies body aches, Denies chills, Denies fever(s), Denies headache(s) and Denies poor appetite Eyes Reports no additional complaints ENT Reports dysphagia, Denies dizziness, Denies headache(s) and Denies odynophagia Card Denies chest pain, Denies syncope, Denies edema, Denies irregular heart rhythm, Denies lightheadedness and Denies dyspnea Resp Reports as per HPI, Reports cough and Denies dyspnea GI Denies abdominal pain, Denies constipation, Reports dysphagia, Denies diarrhea, Denies nausea, Denies odynophagia and Denies vomiting Reports no additional complaints Musc Reports no additional complaints and Denies abnormal gait Skin/Breast Reports system reviewed and no additional complaints, except as documented Neuro Denies abnormal gait, Denies dizziness, Denies syncope and Denies headache(s) Psych Reports no additional complaints Physical exam (Primary Care) Vital Signs: Last Vital Signs Temp 96.8 F 06/11/25 09:09 Pulse 80 06/11/25 09:09 BP 138/70 06/11/25 09:34 Pulse Ox 99 06/11/25 09:09 Oxygen Delivery Method Room Air 06/11/25 09:09 BMI result Body Mass Index 31.8 Tobacco/Smoking Status: Tobacco use Status Tobacco use date assessed 06/11/25 06/11/25 09:05 Patient Tobacco Use Status Former Tobacco user 06/11/25 09:05 e-Cigarette/Vaping Use Never Used 06/11/25 09:05 Thrive Assessment: Date of Thrive Assessment Date Thrive assessed 11/13/24 06/11/25 09:05 Currently or been in a relationship where the following occur: No concerns reported Const General: cooperative, healthy appearing, comfortable and no acute distress Orientation/consciousness: patient oriented x3 HENMT Head: Yes normocephalic Ears: hearing grossly normal bilaterally General nose exam: Normal external nose present Eyes General: appearance normal, both eyes and all related structures Conjunctivae: conjunctivae normal Neck Neck: Yes full ROM and Yes no lymphadenopathy Resp Effort & Inspection: normal respiratory effort Auscultation: clear to auscultation bilaterally, no crackles, no rales, no rhonchi and no wheezes Cardio Rate: regular rate Rhythm: regular rhythm Skin General skin exam: no rashes or lesions noted Neuro General: patient oriented x3 Gait exam (Neuro): Normal gait present Extrem General: Yes normal to inspection, Yes full ROM and No edema Psych Affect: normal affect Attitude: cooperative Insight: Good insight present (Psych) Judgement: Good judgement present (Psych) Coding Level of Care Code Est Pt Level 4 (54251) Diagnoses Depression F32.A Anxiety F41.9 Elevated blood pressure reading without diagnosis of hypertension R03.0 Hypercholesterolemia E78.00 Type 2 diabetes mellitus without complication, without long-term current use of insulin E11.9 Diabetes mellitus complication status: without complication Diabetes mellitus group home insulin use: without long term care pharmacist use Diabetes mellitus type: type 2 Dysphagia R13.10 Gastroesophageal reflux disease, unspecified whether esophagitis present K21.9 Esophagitis presence: esophagitis presence not specified Assessment & Plan Assessment & Plan (1) Depression: Code(s): F32.A - Depression, unspecified Category: Medical Plan: The patient reports symptoms of depression and requested medication. Given her history of suicidal thoughts with sertraline, this medication will be avoided. She will be started on citalopram (Celexa). She was counseled that most antidepressants carry a potential risk of thoughts of self-harm and instructed to stop the medication and notify the office if these occur. (2) Anxiety: Code(s): F41.9 - Anxiety disorder, unspecified Category: Medical Plan: See above . Plan for next refill of alprazolam to be 30 days (3) Elevated blood pressure reading without diagnosis of hypertension: Code(s): R03.0 - Elevated blood-pressure reading, without diagnosis of hypertension Category: Medical Plan: Blood pressures at home have been WNL with all values less than 140/90. In the office blood pressure normalized. Continue to monitor. (4) Hypercholesterolemia: Code(s): E78.00 - Pure hypercholesterolemia, unspecified Category: Medical Plan: Avoid foods that are high in cholesterol such as red meat, fried foods, eggs and baked goods. Triglyceride goal of less than 150 and LDL goal of less than 100. Last LDL was 133 plan for repeat blood work. Declining medication management at this time. (5) Diabetes mellitus: Code(s): E11.9 - Type 2 diabetes mellitus without complications Category: Medical Qualifiers: Diabetes mellitus complication status: without complication Diabetes mellitus long term care pharmacist insulin use: without long term care pharmacist use Diabetes mellitus type: type 2 Qualified Code(s): E11.9 - Type 2 diabetes mellitus without complications Plan: Decrease the amount of carbohydrates such as pasta, bread, rice, and potatoes and limit the amount of sweets. Although fruits are generally healthy they should be eaten in moderation as they are still high in sugar. Last A1c was 6.4% without medication. (6) Dysphagia: Code(s): R13.10 - Dysphagia, unspecified Category: Medical Plan: The patient reports increasing frequency of difficulty swallowing pills. Given her history and symptoms, a swallow study (barium swallow) will be ordered to investigate for any narrowing. The increased dose of famotidine may also help if the dysphagia is related to acid reflux. The patient is already established with a GI specialist for follow-up if needed. (7) GERD (gastroesophageal reflux disease): Code(s): K21.9 - Gastro-esophageal reflux disease without esophagitis Category: Medical Qualifiers: Esophagitis presence: esophagitis presence not specified Qualified Code(s): K21.9 - Gastro-esophageal reflux disease without esophagitis Plan: The patient's morning cough is suspected to be related to gastroesophageal reflux disease (GERD). The plan is to increase famotidine to twice daily. If the cough persists, the patient is advised to try an [id number] allergy medication such as Zyrtec or Claritin at bedtime, as postnasal drip could be a contributing factor. A refill of benzonatate was provided. Reviewed red flag symptoms and when to present for re-evaluation. Plan This note was constructed using voice recognition software. While every effort has been made to ensure accuracy and medicine tech, still areas may have been included sometimes these areas may affect the content or meeting of the given symptoms. Total time spent caring for the patient today was 20 minutes. This includes time spent before the visit reviewing the chart, time spent during the visit, and time spent after the visit and documentation. Patient was informed and verbally consented to the use of an ambient scribe for clinic note documentation during this visit. Orders: Orders FL barium swallow Today R13.10 - Dysphagia, unspecified Medications: New famotidine 20 mg PO BID 180 tabs 0RF citalopram 10 mg PO DAILY 90 tabs 0RF Refilled clotrimazole 1% 1 appl topical BID 30 grams 0RF benzonatate 200 mg PO BID PRN 20 caps 0RF cough Discontinued famotidine (Pepcid) Discontinued Reason: Patient no longer taking 20 mg PO DAILY 30 tabs 3RF K21.9 - Gastro-esophageal reflux disease without esophagitis
[2025-06-11 09:09] VITALS: BP 150/80; PULSE 80; TEMP 36; O2SAT 99; BMI 31.8
[2025-06-11 09:34] VITALS: BP 138/70
== END 2025-06-11 09:43 | disposition home or self-care (01) ==
LOC: HO.HMCH 08:53
DX: E11.9 Type 2 diabetes mellitus without complications (principal); F32.A Depression, unspecified; F41.9 Anxiety disorder, unspecified; R03.0 Elevated blood-pressure reading, without diagnosis of hypertension; E78.00 Pure hypercholesterolemia, unspecified; R13.10 Dysphagia, unspecified; K21.9 Gastro-esophageal reflux disease without esophagitis

== ENCOUNTER → 2025-06-11 08:53 | Outpatient (BNVA) | payer MEDICARE, SELFPAY | DX: E11.9 Type 2 diabetes mellitus without complications (principal); F32.A Depression, unspecified; F41.9 Anxiety disorder, unspecified; R03.0 Elevated blood-pressure reading, without diagnosis of hypertension; R13.10 Dysphagia, unspecified; K21.9 Gastro-esophageal reflux disease without esophagitis | CPT/HCPCS: 99212 ==